=== PATIENT | male | born 1945 | race Caucasian/White ===

== ENCOUNTER → 2016-08-30 | Outpatient (CLI) | payer MEDICARE, OTHER | LOC: LAB 14:20 | PROVIDERS: ATTEND Otolaryngology Otolaryngology/Facial Plastic Surgery | DX: R05 Cough (principal) | CPT/HCPCS: 87070; 87077; 87186; 87205 ==

== ENCOUNTER 2016-09-07 13:25 | Outpatient (RCR) | payer MEDICARE, OTHER ==
--- OUTSIDE RECORDS SUMMARY | 2016-09-07 13:28 | XMS REPORT | Continuity of Care Document ---
Author Author [facility] Organization [facility] Address Unknown Phone Unavailable Allergies Medications Problems Date Dx Coded Attending Type Code Diagnosis Diagnosed By 09/10/2015 JORDAN BROWN MD Ot J69.0 09/10/2015 JORDAN BROWN MD Ot R13.10 10/05/2015 JORDAN BROWN MD Ot J69.0 PNEUMONITIS DUE TO INHALATION OF FOOD AN 10/05/2015 JORDAN BROWN MD Ot R13.10 DYSPHAGIA, UNSPECIFIED Procedures Results Test Result Range Sputum Gram stain - 08/30/16 14:30 GRAM STAIN SPUTUM NUMEROUS GRAM NEGATIVE DIPLOCOCCI NRG Bacterial sputum culture - 08/30/16 14:30 FREE TEXT EXTERNAL WITH SCANT YEAST OBSERVED NRG QUANTITY OF GROWTH Abundant Growth NRG Bacterial sputum culture [id number] NR Bacterial susceptibility panel - 08/30/16 14:30 Gentamicin susceptibility test by minimum inhibitory concentration <= NRG Trimethoprim/sulfamethoxazole susceptibility test by minimum inhibitoryconcentration <= NRG Tobramycin susceptibility test by minimum inhibitory concentration 2 NRG Cefazolin susceptibility test by minimum inhibitory concentration >= NRG Ceftriaxone susceptibility test by minimum inhibitory concentration <= NRG Ciprofloxacin susceptibility test by minimum inhibitory concentration <= NRG Meropenem susceptibility test by minimum inhibitory concentration <= NRG Aztreonam susceptibility test by minimum inhibitory concentration <= NRG Encounters ACCT No. Visit Date/Time Discharge Status Pt. Type Provider Facility Loc./Unit Complaint [id number] 10/05/2015 13:45:00 2015 14:47:00 DIS Outpatient JORDAN BROWN MD [facility] REHAB ASPIRATION PNEUMONIA; DYSPHAGIA [id number] 09/07/2016 14:34:00 PEN Preadmit VIANEY FU DATA PROCESSING CONSULTANT [facility] WOUNDCARE [id number] 08/30/2016 14:20:00 ACT Outpatient BERNADINE NICHOLE MD [facility] LAB COUGH
== END 2016-09-07 16:00 | disposition home or self-care (01) ==
LOC: WOUNDCARE 13:25
PROVIDERS: ATTEND Nurse Practitioner
DX: K94.20 Gastrostomy complication, unspecified (principal)
CPT/HCPCS: 99213

== ENCOUNTER 2016-11-21 16:00 | Outpatient (RCR) | payer MEDICARE, OTHER ==
[2017-01-19] MEDS ORDERED: BACL20TA PO (10:34)
[2017-01-19] MEDS ORDERED: ASPI-999 PO (10:34)
[2017-01-19] MEDS ORDERED: OXYC10TA7 PO (10:34)
[2017-01-19] MEDS ORDERED: TAMS0.4C2 PO (10:34)
== END 2017-02-18 | disposition home or self-care (01) ==
LOC: LAB 16:00
PROVIDERS: ATTEND Internal Medicine Critical Care Medicine
DX: R06.00 Dyspnea, unspecified (principal); J69.0 Pneumonitis due to inhalation of food and vomit; J47.9 Bronchiectasis, uncomplicated; F32.9 Major depressive disorder, single episode, unspecified; M54.2 Cervicalgia
CPT/HCPCS: 87070; 87077; 87101; 87106; 87116; 87186; 87205

== ENCOUNTER → 2016-11-21 | Outpatient (CLI) | payer MEDICARE, OTHER ==
--- NOTE | 2016-11-21 15:42 | Diagnostic Imaging Report ---
INDICATION: Bronchiectasis and dyspnea. CT chest obtained without IV contrast. There is no prior study for comparison. FINDINGS: There are no enlarged mediastinal or hilar nodes. There are no enlarged axillary nodes or chest wall lesions. There is no pleural or pericardial fluid. Visualized portions of the upper abdomen demonstrate a gastrostomy tube in the stomach but no acute finding. Lung parenchymal windows demonstrate diffuse marked emphysematous changes throughout both lungs. There is some mild parenchymal scarring in the left lower lobe and lingula. There is some mild parenchymal scarring in the right middle lobe as well as right lower lobe. There is some mild peribronchial thickening but the visualized bronchi are not appreciably dilated. IMPRESSION: Severe diffuse emphysematous change is noted. There is some mild parenchymal scarring in both lung bases. There does not appear to be significant bronchiectatic change although there is some mild peribronchial thickening. There is no overt mass lesion or pleural fluid. Dictated by: Dictated on workstation # [id number]
== END ==
LOC: RAD 13:42
DX: J69.0 Pneumonitis due to inhalation of food and vomit (principal); J47.9 Bronchiectasis, uncomplicated; R06.00 Dyspnea, unspecified
CPT/HCPCS: 71250

== ENCOUNTER → 2017-01-18 | Outpatient (CLI) | payer MEDICARE, OTHER ==
[~2017-01-18] MED LIST: ASPI-999 PO; BACL20TA PO; OXYC10TA7 PO; TAMS0.4C2 PO
== END ==
LOC: PREOP 11:40
PROVIDERS: ATTEND Surgery
DX: Z01.818 Encounter for other preprocedural examination (principal); K94.23 Gastrostomy malfunction

== ENCOUNTER 2017-01-19 10:05 | Day surgery (SDC) | payer MEDICARE, OTHER ==
[~2017-01-19] VITALS: Ht 167.6 cm; Wt 60.8 kg
[2017-01-19 10:29] VITALS: BP 120/77
[2017-01-19] MEDS ORDERED: OXYC10TA7 PO (10:34)
[2017-01-19] MEDS ORDERED: ASPI-999 PO (10:34)
[2017-01-19] MEDS ORDERED: TAMS0.4C2 PO (10:34)
[2017-01-19] MEDS ORDERED: BACL20TA PO (10:34)
[2017-01-19] MEDS ORDERED: NS IV 500 ML 500 ML IV PRN (11:00)
[2017-01-19 12:35] VITALS: BP 131/76
[2017-01-19 12:40] VITALS: BP 131/76
--- OUTSIDE RECORDS SUMMARY | 2017-01-23 06:48 | XMS REPORT | Continuity of Care Document ---
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, UNSPECIFIED 09/10/2015 JORDAN BROWN MD Ot J69.0 09/10/2015 JORDAN BROWN MD Ot R13.10 10/05/2015 JORDAN BROWN MD Ot J69.0 PNEUMONITIS DUE TO INHALATION OF FOOD AN 10/05/2015 JORDAN BROWN MD Ot R13.10 DYSPHAGIA, UNSPECIFIED 09/07/2016 VIANEY FU APRN Ot 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, UNSPECIFIED 09/08/2016 VIANEY FU APRN Ot 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, UNSPECIFIED 11/20/2016 DIONISIO JOHNSON, BERNADINE Markham Ot R05 COUGH 11/21/2016 JOELLEN DO, RILEY C Ot F32.9 MAJOR DEPRESSIVE DISORDER, SINGLE EPISOD 11/21/2016 JOELLEN DO, RILEY C Ot J47.9 BRONCHIECTASIS, UNCOMPLICATED 11/21/2016 JOELLEN DO, RILEY C Ot J69.0 PNEUMONITIS DUE TO INHALATION OF FOOD AN 11/21/2016 JOELLEN DO, RILEY C Ot M54.2 CERVICALGIA 11/21/2016 JOELLEN DO, RILEY C Ot R06.00 DYSPNEA, UNSPECIFIED 11/21/2016 DIONISIO JOHNSON, BERNADINE Markham Ot R05 COUGH 11/21/2016 JOELLEN DO, RILEY C Ot F32.9 MAJOR DEPRESSIVE DISORDER, SINGLE EPISOD 11/21/2016 JOELLEN DO, RILEY C Ot J47.9 BRONCHIECTASIS, UNCOMPLICATED 11/21/2016 JOELLEN DO, RILEY C Ot J69.0 PNEUMONITIS DUE TO INHALATION OF FOOD AN 11/21/2016 JOELLEN DO, RILEY C Ot M54.2 CERVICALGIA 11/21/2016 JOELLEN DO, RILEY C Ot R06.00 DYSPNEA, UNSPECIFIED 11/22/2016 JOELLEN DO, RILEY C Ot J47.9 BRONCHIECTASIS, UNCOMPLICATED 11/22/2016 JOELLEN DO, RILEY C Ot J69.0 PNEUMONITIS DUE TO INHALATION OF FOOD AN 11/22/2016 JOELLEN DO, RILEY C Ot R06.00 DYSPNEA, UNSPECIFIED 11/22/2016 JOELLEN DO, RILEY C Ot F32.9 MAJOR DEPRESSIVE DISORDER, SINGLE EPISOD 11/22/2016 JOELLEN DO, RILEY C Ot J47.9 BRONCHIECTASIS, UNCOMPLICATED 11/22/2016 JOELLEN DO, RILEY C Ot J69.0 PNEUMONITIS DUE TO INHALATION OF FOOD AN 11/22/2016 JOELLEN DO, RILEY C Ot M54.2 CERVICALGIA 11/22/2016 JOELLEN DO, RILEY C Ot R06.00 DYSPNEA, UNSPECIFIED 11/23/2016 JOELLEN DO, RILEY C Ot J47.9 BRONCHIECTASIS, UNCOMPLICATED 11/23/2016 JOELLEN DO, RILEY C Ot J69.0 PNEUMONITIS DUE TO INHALATION OF FOOD AN 11/23/2016 JOELLEN DO, RILYE C Ot R06.00 DYSPNEA, UNSPECIFIED 11/23/2016 JOELLEN DO, RILEY C Ot J47.9 BRONCHIECTASIS, UNCOMPLICATED 11/23/2016 JOELLEN DO, RILEY C Ot J69.0 PNEUMONITIS DUE TO INHALATION OF FOOD AN 11/23/2016 JOELLEN DO, RILEY C Ot R06.00 DYSPNEA, UNSPECIFIED 11/24/2016 JOELLEN DO, RILEY C Ot J47.9 BRONCHIECTASIS, UNCOMPLICATED 11/24/2016 JOELLEN DO, RILEY C Ot J69.0 PNEUMONITIS DUE TO INHALATION OF FOOD AN 11/24/2016 JOELLEN DO, RILEY C Ot R06.00 DYSPNEA, UNSPECIFIED 12/05/2016 JOELLEN DO, RILEY C Ot J47.9 BRONCHIECTASIS, UNCOMPLICATED 12/05/2016 JOELLEN DO, RILEY C Ot J69.0 PNEUMONITIS DUE TO INHALATION OF FOOD AN 12/05/2016 JOELLEN DO, RILEY C Ot R06.00 DYSPNEA, UNSPECIFIED 12/13/2016 JOELLEN DO, RILEY C Ot F32.9 MAJOR DEPRESSIVE DISORDER, SINGLE EPISOD 12/13/2016 JOELLEN DO, RILEY C Ot J47.9 BRONCHIECTASIS, UNCOMPLICATED 12/13/2016 JOELLEN DO, RILEY C Ot J69.0 PNEUMONITIS DUE TO INHALATION OF FOOD AN 12/13/2016 JOELLEN DO, RILEY C Ot M54.2 CERVICALGIA 12/13/2016 JOELLEN DO, RILEY C Ot R06.00 DYSPNEA, UNSPECIFIED 12/22/2016 JOELLEN DO, RILEY C Ot J47.9 BRONCHIECTASIS, UNCOMPLICATED 12/22/2016 JOELLEN DO, RILEY C Ot J69.0 PNEUMONITIS DUE TO INHALATION OF FOOD AN 12/22/2016 JOELLEN DO, RILEY C Ot R06.00 DYSPNEA, UNSPECIFIED 01/04/2017 JOELLNE DO, RILEY C Ot F32.9 MAJOR DEPRESSIVE DISORDER, SINGLE EPISOD 01/04/2017 JOELLEN DO, RILEY C Ot J47.9 BRONCHIECTASIS, UNCOMPLICATED 01/04/2017 JOELLEN DO, RILEY C Ot J69.0 PNEUMONITIS DUE TO INHALATION OF FOOD AN 01/04/2017 JOELLEN DO, RILEY C Ot M54.2 CERVICALGIA 01/04/2017 JOELLEN DO, RILEY C Ot R06.00 DYSPNEA, UNSPECIFIED 01/19/2017 DIONISIO JOHNSON, BERNADINE Markham Ot R05 COUGH 01/19/2017 JOELLEN DO, RILEY C Ot J47.9 BRONCHIECTASIS, UNCOMPLICATED 01/19/2017 JOELLEN DO, RILEY C Ot J69.0 PNEUMONITIS DUE TO INHALATION OF FOOD AN 01/19/2017 JOELLEN DO, RILEY C Ot R06.00 DYSPNEA, UNSPECIFIED 01/19/2017 JOELLEN DO, RILEY C Ot F32.9 MAJOR DEPRESSIVE DISORDER, SINGLE EPISOD 01/19/2017 JOELLEN DO, RILEY C Ot J47.9 BRONCHIECTASIS, UNCOMPLICATED 01/19/2017 JOELLEN DO, RILEY C Ot J69.0 PNEUMONITIS DUE TO INHALATION OF FOOD AN 01/19/2017 JOELLEN DO, RILEY C Ot M54.2 CERVICALGIA 01/19/2017 RILEY CUENCA DO Ot R06.00 DYSPNEA, UNSPECIFIED Procedures Results Test Result Range Sputum Gram stain - 08/30/16 14:30 GRAM STAIN SPUTUM NUMEROUS GRAM NEGATIVE DIPLOCOCCI NRG Bacterial sputum culture - 08/30/16 14:30 FREE TEXT EXTERNAL WITH SCANT YEAST OBSERVED NRG QUANTITY OF GROWTH Abundant Growth NRG Bacterial sputum culture [id number] NR Bacterial susceptibility panel - 08/30/16 14:30 [...] test by minimum inhibitory concentration <= NRG Sputum Gram stain - 11/20/16 10:45 GRAM STAIN SPUTUM AND MIXED BACTERIAL DANNIELLE NRG Bacterial sputum culture - 11/20/16 10:45 Bacterial sputum culture NORMAL NRG Mycobacterium species detection by organism specific culture - 11/20/16 10:45 Mycobacterium species detection by organism specific culture FOOTNOTE NRG Fungus culture - 11/20/16 10:45 QUANTITY OF GROWTH Isolated NRG Fungus culture [id number] NRG IDENTIFICATION TO FOLLOW ID BY [facility] NRG Sputum Gram stain - 11/21/16 11:00 Sputum Gram stain Mixed bacterial dannielle NRG Bacterial sputum culture - 11/21/16 11:00 FREE TEXT EXTERNAL (MOLD FORM) NRG QUANTITY OF GROWTH Scant Growth NRG FREE TEXT ENTRY 2 PLUS NORMAL DANNIELLE NRG Bacterial sputum culture [id number] NRG Mycobacterium species detection by organism specific culture - 11/21/16 11:00 Mycobacterium species detection by organism specific culture FOOTNOTE NRG Fungus culture - 11/21/16 11:00 QUANTITY OF GROWTH Isolated NRG FTX;REPORTABLE SEE COMMENT NRG FUNGUS REPORT FUNGUS GROWTH OBSERVED NRG Fungus culture [id number] NRG Sputum Gram stain - 11/22/16 11:00 Sputum Gram stain Abundant mixed bacterial dannielle NRG Bacterial sputum culture - 11/22/16 11:00 FREE TEXT EXTERNAL SEE FUNGUS CULTURE NRG QUANTITY OF GROWTH Moderate Growth NRG Bacterial sputum culture [id number] NRG Mycobacterium species detection by organism specific culture - 11/22/16 11:00 Mycobacterium species detection by organism specific culture FOOTNOTE [facility] Bacterial susceptibility panel - 11/22/16 11:00 Gentamicin susceptibility test by minimum inhibitory concentration [...] test by minimum inhibitory concentration <= NRG Bacterial susceptibility panel - 11/22/16 11:00 Gentamicin susceptibility test by minimum inhibitory concentration <= NRG Trimethoprim/sulfamethoxazole susceptibility test by minimum inhibitoryconcentration <= NRG Ampicillin susceptibility test by minimum inhibitory concentration >= NRG Tobramycin susceptibility test by minimum inhibitory concentration <= NRG Cefazolin susceptibility test by minimum inhibitory concentration <= NRG Ceftriaxone susceptibility test by minimum inhibitory concentration <= NRG Ampicillin/sulbactam susceptibility test by minimum inhibitory concentration 4 NRG Piperacillin/tazobactam susceptibility test by minimum inhibitory concentration <= NRG Ciprofloxacin susceptibility test by minimum inhibitory concentration <= NRG Meropenem susceptibility test by minimum inhibitory concentration <= NRG Aztreonam susceptibility test by minimum inhibitory concentration <= NRG Extended spectrum beta lactamase (ESBL) producing bacteria susceptibility test by minimum inhibitory concentration - [facility] Fungus culture - 11/22/16 11:00 QUANTITY OF GROWTH . [facility] FUNGUS REPORT FUNGUS GROWTH OBSERVED NR Fungus culture SEE COMMEN NR Encounters ACCT No. Visit Date/Time Discharge Status Pt. Type Provider Facility Loc./Unit Complaint [id number] 01/19/2017 10:05:00 2016 12:40:00 DIS Outpatient SANTOS ROSAS MD [facility] SDC MALFUNCTIONING PEG TUBE [id number] 09/07/2016 13:25:00 2016 16:00:00 DIS Outpatient VIANEY FU APRN [facility] WOUNDCARE [id number] 10/05/2015 13:45:00 2015 14:47:00 DIS Outpatient JORDAN BROWN MD [facility] REHAB ASPIRATION PNEUMONIA; DYSPHAGIA [id number] 01/18/2017 11:40:00 ACT Outpatient RALPH JOHNSON, SANTOS [facility] PREOP CHANGE PEG TUBE [id number] 11/21/2016 16:00:00 ACT Outpatient RILEY CUENCA DO [facility] LAB R06.00,M54.2 [id number] 11/21/2016 13:42:00 ACT Outpatient RILEY CUENCA DO [facility] RAD BRONCHIECTASIS J47.9 [id number] 08/30/2016 14:20:00 ACT Outpatient DIONISIO JOHNSON, BERNADINE Markham [facility] LAB COUGH
--- NOTE | 2017-01-24 17:15 | Progress Note-Post Operative ---
Post-Operative Progess Note Surgeon (s)/Sole Stapler Welt (s) Surgeon SANTOS ROSAS MD Sole Stapler Welt: none Pre-Operative Diagnosis dysphagia, malnutrition Post-Operative Diagnosis same Procedure & Operative Findings Date of Procedure 01/24/17 Procedure Performed/Findings JESSICA-CHO PEG tube change to 24 azeri Anesthesia Type none Estimated Blood Loss Estimated blood loss (mL): minimal Specimens/Packing Specimens Removed none SANTOS ROSAS MD Jan 24, 2017 17:15
--- NOTE | 2017-01-26 11:56 | PROCEDURE REPORT ---
PROCEDURE PHYSICIAN: SANTOS GRIGGS DATE OF PROCEDURE: 01/19/2017 ATTENDING PRIMARY CARE PHYSICIAN: Dr. Pretty PREPROCECURE DIAGNOSES: 1. Dysphagia. 2. Malnutrition. 3. Leaking gastrostomy tube. POSTPROCEDURE DIAGNOSES: 1. Dysphagia. 2. Malnutrition. 3. Leaking gastrostomy tube. PROCEDURE: 1. Dysphagia. 2. Malnutrition. 3. Leaking gastrostomy tube. PROCEDURE: Replacement of a 22-Danish JESSICA-CHO gastrostomy tube from 22-Danish to 24-Danish. SURGEON: Dr. Griggs. ANESTHESIA: None. ESTIMATED BLOOD LOSS: Minimal. DISPOSITION: The patient tolerated the procedure well. BRIEF HISTORY: Mr. Wilner Louis is a 71-year-old male who has had irritation and drainage around his gastrostomy tube site. In April 2015, he underwent a cervical diskectomy and developed dysphagia and was unable to eat and drink or take any medications. He had a percutaneous gastrostomy tube place for nutrition. Since that time, he reports that he is able to tolerate some soft foods; however, he does continue to get dehydrated and does have to proceed with alimentation of water, as well as nutrition through the gastrostomy tube. His tube was in for approximately 14 months and this was replaced in May 2016. For the past several months, he has had drainage, as well as irritation and excoriation around the tube. He did try a trial of antibiotics, which he states did not help. He would like to have gastrostomy tube changed to a 24-Danish larger balloon catheter in hopes of allowing less gastric drainage around the peristomal site of the skin level. The previous 22-Danish JESSICA-CHO gastrostomy tube balloon was desufflated and was only approximately 4 cc within the balloon. The gastrostomy tube was removed intact. A 24-Danish JESSICA-CHO gastrostomy tube was placed without any resistance and the balloon insufflated to 10 mm with water. The rubber bolster on the surface side was then firmly abutted against the skin after drain sponge was placed. The patient tolerated the procedure well. The gastrostomy tube may be accessed and used at any time. Job ID: [id number] Dictated Date: 01/24/2017 17:20:53 Animal Attendants And Trainers Date: 01/26/2017 11:45:12 / venu
== END 2017-01-19 12:40 | disposition home or self-care (01) ==
LOC: SDC 10:05
PROVIDERS: ATTEND Surgery
DX: K94.29 Other complications of gastrostomy (principal); E46 Unspecified protein-calorie malnutrition; R13.10 Dysphagia, unspecified; C90.00 Multiple myeloma not having achieved remission; D64.9 Anemia, unspecified; N40.0 Benign prostatic hyperplasia without lower urinary tract symptoms; M19.90 Unspecified osteoarthritis, unspecified site; Z79.899 Other long term (current) drug therapy

== ENCOUNTER → 2017-03-30 | Outpatient (CLI) | payer MEDICARE, OTHER ==
[~2017-03-30] VITALS: Ht 167.6 cm; Wt 60.8 kg
--- NOTE | 2017-03-30 15:02 | Progress Note-Post Operative ---
Post-Operative Progess Note Surgeon (s)/Preschool Assistant Principal (s) Surgeon SANTOS ROSAS MD Preschool Assistant Principal: NONE Pre-Operative Diagnosis dysphagia, malnutrition Post-Operative Diagnosis same Procedure & Operative Findings Date of Procedure 03/30/17 Procedure Performed/Findings replacement PEG Anesthesia Type none Estimated Blood Loss Estimated blood loss (mL): minimal Specimens/Packing Specimens Removed none SANTOS ROSAS MD Mar 30, 2017 3:02 pm
--- NOTE | 2017-03-30 15:05 | Discharge Inst-Surgical ---
D/C Lap Instructions-RALPH Follow Up PRN Activity as tolerated High Fiber Diet 25g or more per day Avoid Alcohol, Caffeine, Spicy [place] and Acid foods. Drink 64 fluid oz or more of fluids per day. Symptoms to Report: Fever over 101 degree F, Nausea/Vomiting If any problems/questions: Contact your physician or go to Emergency Room SANTOS ROSAS MD Mar 30, 2017 3:05 pm
[2017-03-30 16:25] VITALS: BP 141/71
== END ==
LOC: SDC 14:41
PROVIDERS: ATTEND Surgery
DX: K94.23 Gastrostomy malfunction (principal); R13.10 Dysphagia, unspecified; E46 Unspecified protein-calorie malnutrition

== ENCOUNTER → 2017-08-08 | Outpatient (CLI) | payer MEDICARE, OTHER | LOC: LAB 16:13 | PROVIDERS: ATTEND Internal Medicine | DX: R19.7 Diarrhea, unspecified (principal) ==

== ENCOUNTER 2017-12-12 05:48 | Outpatient (CLI) | payer MEDICARE, OTHER ==
[~2017-12-12] VITALS: Ht 167.6 cm; Wt 59.9 kg
[2017-12-12] MEDS ORDERED: OXYC-529 PO (13:52)
[2017-12-12] MEDS ORDERED: TIOT18CA2 IH (13:52)
[2017-12-12] MEDS ORDERED: GABA-486 PO (13:52)
[2017-12-12] MEDS ORDERED: FINA5TAB6 PO (13:52)
[2017-12-12] MEDS ORDERED: BUDE10.2 IH (13:52)
== END 2017-12-12 13:57 ==
LOC: PREOP 05:48
PROVIDERS: ATTEND Specialist
DX: Z01.818 Encounter for other preprocedural examination (principal); H25.11 Age-related nuclear cataract, right eye

== ENCOUNTER 2017-12-14 09:27 | Day surgery (SDC) | payer MEDICARE, OTHER ==
[~2017-12-14] VITALS: Ht 167.6 cm; Wt 59.9 kg
[~2017-12-14 09:27] MED LIST changes: +BUDE10.2 IH; +FINA5TAB6 PO; +GABA-486 PO; +OXYC-529 PO; +TIOT18CA2 IH
[2017-12-14 09:35] VITALS: BP 138/86
[2017-12-14] MEDS ORDERED: POVIDONE (BETADINE) OPHTH SOLN 5% 30 ML OP NR (09:45)
[2017-12-14] MEDS ORDERED: EPINEPHrine INJECTION 1 MG/ML AMP INJ NR (09:45)
[2017-12-14] MEDS ORDERED: VANCOMYCIN/BSS (COMPOUNDED) 10 MG/ML SYR OP NR (09:45)
[2017-12-14] MEDS ORDERED: TIMOLOL MALEATE 0.5% 5 ML (TIMOPTIC) BTL OU PRN (09:45)
[2017-12-14] MEDS ORDERED: LIDOCAINE PF 1% 2 ML AMP IR PRN (09:45)
[2017-12-14] MEDS: TETRACAINE 0.5% OPHTH SOLN 4 ML BTL (SINGLE DOSE ONLY) OU PRN ×4 (09:50→10:07)
[2017-12-14] MEDS: PHENYLEPHRINE 10% OPHTH (NEO-SYN) 5 ML BTL OU SCH ×3 (09:56→10:07)
[2017-12-14] MEDS: CYCLOPENTOLATE 1% (CYCLOGYL) 2 ML DROPS OP SCH ×3 (09:56→10:07)
[2017-12-14] MEDS ORDERED: MIDAZOLAM 2 MG/2 ML (VERSED) VIAL ONE (10:14)
--- NOTE | 2017-12-14 11:12 | Ophthalmologist Pre-Op Note ---
Pre-Operative Progress Note H&P Reviewed The H&P was reviewed, patient examined and no changes noted. Date H&P Reviewed: Dec 14, 2017 Time H&P Reviewed: 10:31 Pre-Op Dx Cataract, Right Eye MAYELIN MCKEON MD Dec 14, 2017 11:11
--- NOTE | 2017-12-14 11:12 | Ophthalmology Operative Report ---
Cataract removal/placement IOL PREOPERATIVE DIAGNOSIS: Cataract Right Eye POSTOPERATIVE DIAGNOSIS: Cataract Right Eye PROCEDURE: Cataract removal and placement of posterior chamber implant, right eye SURGEON: Karl Mckeon ANESTHESIA: Topical with sedation COMPLICATIONS: None ESTIMATED BLOOD LOSS: Minimal DESCRIPTION OF PROCEDURE: After proper informed consent was obtained, the patient, a 72 male, was taken to the Operating Room and the right eye was anesthetized with tetracaine. They right eye was then prepped and draped in the usual manner. A wire lid speculum was placed. A paracentesis was made at the left hand position. Preservative free lidocaine was injected into the anterior chamber followed by viscoelastic. A clear corneal incision was made in the temporal position. A capsulorrhexis was preformed and the central nuclear and cortical material were removed. The posterior capsule was polished and Alcon21.0 SN6CWS IOL was placed into the capsular bag. The residual viscoelastic was aspirated and balanced saline solution was injected into the anterior chamber. 0.1ml of Vancomycin (10mg/0.1ml ) was injected into the anterior chamber. The wound was checked and found to be water tight. The patient tolerated the procedure well without complications. KARL MCKEON MD Dec 14, 2017 11:12
[2017-12-14 11:15] VITALS: BP 142/78
[2017-12-14 11:50] VITALS: BP 142/78
--- NOTE | 2017-12-14 13:55 | Anesthesia-General Post-Op ---
MAC Patient Condition Mental Status/LOC: Same as Preop Cardiovascular: Satisfactory Nausea/Vomiting: Absent Respiratory: Satisfactory Pain: Controlled Complications: Absent Post Op Complications Complications None Follow Up Care/Instructions Patient Instructions None needed. Anesthesiology Discharge Order Discharge Order Patient is doing well, no complaints, stable vital signs, no apparent adverse anesthesia problems. No complications reported per nursing. JANIE MULLER CRNA Dec 14, 2017 13:55
== END 2017-12-14 11:50 | disposition home or self-care (01) ==
LOC: SDC 09:27
PROVIDERS: ATTEND Specialist
DX: H25.11 Age-related nuclear cataract, right eye (principal); J44.9 Chronic obstructive pulmonary disease, unspecified; G62.9 Polyneuropathy, unspecified; K21.9 Gastro-esophageal reflux disease without esophagitis; Z87.891 Personal history of nicotine dependence; Z79.899 Other long term (current) drug therapy

== ENCOUNTER 2018-01-14 14:57 | Outpatient (RCR) | payer MEDICARE, OTHER | END 2018-02-12 | disposition home or self-care (01) | LOC: LAB 14:57 → EDSTATUS 01-30 13:49 | PROVIDERS: ATTEND Internal Medicine Critical Care Medicine | DX: J44.9 Chronic obstructive pulmonary disease, unspecified (principal); J69.0 Pneumonitis due to inhalation of food and vomit; R53.83 Other fatigue; D47.2 Monoclonal gammopathy | CPT/HCPCS: 36415; 80198; 87070; 87077; 87116; 87186; 87205 ==

== ENCOUNTER 2018-06-30 16:18 | Emergency (ER) | payer MEDICARE, OTHER ==
[~2018-06-30] VITALS: Ht 165.1 cm; Wt 59.9 kg
--- OUTSIDE RECORDS SUMMARY | 2018-06-30 16:24 | XMS REPORT | Continuity of Care Document ---
Author Author [facility] Organization [facility] Address Unknown Phone Unavailable Allergies Active Description Code Type Severity Reaction Onset Reported/Identified Relationship to Patient Clinical Status Yes No Known Allergies [id number] Drug Allergy Unknown N/A 01/19/2017 Medications There is no data. 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, UNSPECIFIED 11/20/2016 DIONISIO JOHNSON, BERNADINE P Ot R05 COUGH 11/21/2016 JOELLEN DOSANTIAGOIP C Ot F32.9 MAJOR DEPRESSIVE DISORDER, SINGLE EPISOD 11/21/2016 JOELLEN DO RILEY C Ot J47.9 BRONCHIECTASIS, UNCOMPLICATED 11/21/2016 JOELLEN DO, RILEY C Ot J69.0 PNEUMONITIS DUE TO INHALATION OF FOOD AN 11/21/2016 JOELLEN DO RILEY C Ot M54.2 CERVICALGIA 11/21/2016 JOELLEN DOSANTIAGOIP C Ot R06.00 DYSPNEA, UNSPECIFIED 11/21/2016 DIONISIO JOHNSON, BERNADINE Markham Ot R05 COUGH 11/21/2016 JOELLEN DO RILEY C Ot F32.9 MAJOR DEPRESSIVE DISORDER, SINGLE EPISOD 11/21/2016 JOELLEN DO RILEY C Ot J47.9 BRONCHIECTASIS, UNCOMPLICATED 11/21/2016 [...] RILEY C Ot R06.00 DYSPNEA, UNSPECIFIED 01/04/2017 JOELLEN DO, RILEY C Ot F32.9 MAJOR [...] DO, RILEY C Ot M54.2 CERVICALGIA 01/19/2017 JOELLEN DO, RILEY C Ot R06.00 DYSPNEA, UNSPECIFIED 01/19/2017 SANTOS ROSAS MD, Ot C90.00 MULTIPLE MYELOMA NOT HAVING ACHIEVED REM 01/19/2017 SANTOS ROSAS MD, Ot D64.9 ANEMIA, UNSPECIFIED 01/19/2017 SANTOS ROSAS MD Ot E46 UNSPECIFIED PROTEIN-CALORIE MALNUTRITION 01/19/2017 SANTOS ROSAS MD Ot K94.29 OTHER COMPLICATIONS OF GASTROSTOMY 01/19/2017 SANTOS ROSAS MD, Ot M19.90 UNSPECIFIED OSTEOARTHRITIS, UNSPECIFIED 01/19/2017 SANTOS ROSAS MD, Ot N40.0 BENIGN PROSTATIC HYPERPLASIA WITHOUT LOW 01/19/2017 SANTOS ROSAS MD, Ot R13.10 DYSPHAGIA, UNSPECIFIED 01/19/2017 SANTOS ROSAS MD, Ot Z79.899 OTHER ALF (CURRENT) DRUG THERAPY 01/22/2017 SANTOS ROSAS MD, Ot K94.23 GASTROSTOMY MALFUNCTION 01/22/2017 SANTOS ROSAS MD Ot Z01.818 ENCOUNTER FOR OTHER PREPROCEDURAL EXAMIN 02/18/2017 JOELLEN DO, RILEY C Ot F32.9 MAJOR DEPRESSIVE DISORDER, SINGLE EPISOD 02/18/2017 JOELLEN DO, RILEY C Ot J47.9 BRONCHIECTASIS, UNCOMPLICATED 02/18/2017 JOELLEN DO, RILEY C Ot J69.0 PNEUMONITIS DUE TO INHALATION OF FOOD AN 02/18/2017 JOELLEN DO, RILEY C Ot M54.2 CERVICALGIA 02/18/2017 JOELLEN DO, RILEY C Ot R06.00 DYSPNEA, UNSPECIFIED 02/19/2017 JOELLEN DO, RILEY C Ot F32.9 MAJOR DEPRESSIVE DISORDER, SINGLE EPISOD 02/19/2017 JOELLEN DO, RILEY C Ot J47.9 BRONCHIECTASIS, UNCOMPLICATED 02/19/2017 JOELLEN DO, RILEY C Ot J69.0 PNEUMONITIS DUE TO INHALATION OF FOOD AN 02/19/2017 JOELLEN DO, RILEY C Ot M54.2 CERVICALGIA 02/19/2017 JOELLEN DO, RILEY C Ot R06.00 DYSPNEA, UNSPECIFIED 08/08/2017 DIONISIO JOHNSON, BERNADINE Markham Ot R05 COUGH 08/08/2017 JOELLEN DO, RILEY C Ot J47.9 BRONCHIECTASIS, UNCOMPLICATED 08/08/2017 JOELLEN DO, RILEY C Ot J69.0 PNEUMONITIS DUE TO INHALATION OF FOOD AN 08/08/2017 JOELLEN DO, RILEY C Ot R06.00 DYSPNEA, UNSPECIFIED 08/08/2017 RALPH JOHNSON, SANTOS Ot K94.23 GASTROSTOMY MALFUNCTION 08/08/2017 SANTOS ROSAS MD Ot Z01.818 ENCOUNTER FOR OTHER PREPROCEDURAL EXAMIN 08/08/2017 JOELLEN DO, RILEY C Ot F32.9 MAJOR DEPRESSIVE DISORDER, SINGLE EPISOD 08/08/2017 JOELLEN DO, RILEY C Ot J47.9 BRONCHIECTASIS, UNCOMPLICATED 08/08/2017 JOELLEN DO, RILEY C Ot J69.0 PNEUMONITIS DUE TO INHALATION OF FOOD AN 08/08/2017 JOELLEN DO, RILEY C Ot M54.2 CERVICALGIA 08/08/2017 JOELLEN DO, RILEY C Ot R06.00 DYSPNEA, UNSPECIFIED 08/08/2017 RALPH JOHNSON, SANTOS Ot E46 UNSPECIFIED PROTEIN-CALORIE MALNUTRITION 08/08/2017 RALPH JOHNSON, SANTOS Ot K94.23 GASTROSTOMY MALFUNCTION 08/08/2017 RALPH JOHNSON, SANTOS Ot R13.10 DYSPHAGIA, UNSPECIFIED 08/09/2017 STEPHANIE JOHNSON, JORDAN F Ot R19.7 DIARRHEA, UNSPECIFIED 12/12/2017 DIONISIO JOHNSON, BERNADINE Markham Ot R05 COUGH 12/12/2017 JOELLEN DO, RILEY C Ot J47.9 BRONCHIECTASIS, UNCOMPLICATED 12/12/2017 JOELLEN DO, RILEY C Ot J69.0 PNEUMONITIS DUE TO INHALATION OF FOOD AN 12/12/2017 JOELLEN DO, RILEY C Ot R06.00 DYSPNEA, UNSPECIFIED 12/12/2017 RALPH JOHNSON, SANTOS Ot K94.23 GASTROSTOMY MALFUNCTION 12/12/2017 SANTOS ROSAS MD Ot Z01.818 ENCOUNTER FOR OTHER PREPROCEDURAL EXAMIN 12/12/2017 JOELLEN DO, RILEY C Ot F32.9 MAJOR DEPRESSIVE DISORDER, SINGLE EPISOD 12/12/2017 JOELLEN DO, RILEY C Ot J47.9 BRONCHIECTASIS, UNCOMPLICATED 12/12/2017 JOELLEN DO, RILEY C Ot J69.0 PNEUMONITIS DUE TO INHALATION OF FOOD AN 12/12/2017 JOELLEN DO, RILEY C Ot M54.2 CERVICALGIA 12/12/2017 JOELLEN DO, RILEY C Ot R06.00 DYSPNEA, UNSPECIFIED 12/12/2017 RALPH JOHNSON, SANTOS Ot E46 UNSPECIFIED PROTEIN-CALORIE MALNUTRITION 12/12/2017 RALPH JOHNSON, SANTOS Ot K94.23 GASTROSTOMY MALFUNCTION 12/12/2017 SANTOS ROSAS MD Ot R13.10 DYSPHAGIA, UNSPECIFIED 12/12/2017 STEPHANIE JOHNSON, JORDAN Quinones Ot R19.7 DIARRHEA, UNSPECIFIED 12/12/2017 MIKE JOHNSON, MAYELIN White Ot H25.11 AGE-RELATED NUCLEAR CATARACT, RIGHT EYE 12/12/2017 MAYELIN MCKEON MD Ot Z01.818 ENCOUNTER FOR OTHER PREPROCEDURAL EXAMIN 12/12/2017 MAYELIN MCKEON MD Ot H25.11 AGE-RELATED NUCLEAR CATARACT, RIGHT EYE 12/12/2017 MAYELIN MCKEON MD Ot Z01.818 ENCOUNTER FOR OTHER PREPROCEDURAL EXAMIN 12/14/2017 MAYELIN MCKEON MD Ot G62.9 POLYNEUROPATHY, UNSPECIFIED 12/14/2017 MAYELIN MCKEON MD Ot H25.11 AGE-RELATED NUCLEAR CATARACT, RIGHT EYE 12/14/2017 MAYELIN MCKEON MD Ot J44.9 CHRONIC OBSTRUCTIVE PULMONARY DISEASE, U 12/14/2017 MAYELIN MCKEON MD Ot K21.9 GASTRO-ESOPHAGEAL REFLUX DISEASE WITHOUT 12/14/2017 MAYELIN MCKEON MD Ot 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 12/14/2017 MAYELIN MCKEON MD Ot Z87.891 PERSONAL HISTORY OF NICOTINE DEPENDENCE 01/14/2018 DIONISIO JOHNSON, BERNADINE Markham Ot R05 COUGH 01/14/2018 JOELLEN DO, RILEY C Ot J47.9 BRONCHIECTASIS, UNCOMPLICATED 01/14/2018 JOELLEN DO, RILEY C Ot J69.0 PNEUMONITIS DUE TO INHALATION OF FOOD AN 01/14/2018 JOELLEN DO, RILEY C Ot R06.00 DYSPNEA, UNSPECIFIED 01/14/2018 RALPH JOHNSON, SANTOS Ot K94.23 GASTROSTOMY MALFUNCTION 01/14/2018 RALPH JOHNSON, SANTOS Ot Z01.818 ENCOUNTER FOR OTHER PREPROCEDURAL EXAMIN 01/14/2018 JOELLEN DO, RILEY C Ot F32.9 MAJOR DEPRESSIVE DISORDER, SINGLE EPISOD 01/14/2018 JOELLEN DO, RILEY C Ot J47.9 BRONCHIECTASIS, UNCOMPLICATED 01/14/2018 JOELLEN DO, RILEY C Ot J69.0 PNEUMONITIS DUE TO INHALATION OF FOOD AN 01/14/2018 JOELLEN DO, RILEY C Ot M54.2 CERVICALGIA 01/14/2018 JOELLEN DO, RILEY C Ot R06.00 DYSPNEA, UNSPECIFIED 01/14/2018 RAPLH JOHNSON, SANTOS Ot E46 UNSPECIFIED PROTEIN-CALORIE MALNUTRITION 01/14/2018 RALPH JOHNSON, SANTOS Ot K94.23 GASTROSTOMY MALFUNCTION 01/14/2018 RALPH JOHNSON, SANTOS Ot R13.10 DYSPHAGIA, UNSPECIFIED 01/14/2018 STEPHANIE JOHNSON, JORDAN Quinones Ot R19.7 DIARRHEA, UNSPECIFIED 01/17/2018 JOELLEN DO, RILEY C Ot 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 GAMMOPATHY 01/17/2018 JOELLEN DO, RILEY C Ot J44.9 CHRONIC OBSTRUCTIVE PULMONARY DISEASE, U 01/17/2018 JOELLEN DO, RILEY C Ot J69.0 PNEUMONITIS DUE TO INHALATION OF FOOD AN 01/17/2018 JOELLEN DO, RILEY C Ot R53.83 OTHER FATIGUE 01/30/2018 JOELLEN DO, RILEY C Ot 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 GAMMOPATHY 01/30/2018 JOELLEN DO, RILEY C Ot J44.9 CHRONIC OBSTRUCTIVE PULMONARY DISEASE, U 01/30/2018 JOELLEN DO, RILEY C Ot J69.0 PNEUMONITIS DUE TO INHALATION OF FOOD AN 01/30/2018 JOELLEN DO, RILEY C Ot R53.83 OTHER FATIGUE 01/31/2018 JOELLEN DO, RILEY C Ot 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 GAMMOPATHY 01/31/2018 JOELLEN DO, RILEY C Ot J44.9 CHRONIC OBSTRUCTIVE PULMONARY DISEASE, U 01/31/2018 JOELLEN DO, RILEY C Ot J69.0 PNEUMONITIS DUE TO INHALATION OF FOOD AN 01/31/2018 JOELLEN DO, RILEY C Ot R53.83 OTHER FATIGUE 02/05/2018 JOELLEN DO, RILEY C Ot 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 GAMMOPATHY 02/05/2018 JOELLEN DO, RILEY C Ot J44.9 CHRONIC OBSTRUCTIVE PULMONARY DISEASE, U 02/05/2018 JOELLEN DO, RILEY C Ot J69.0 PNEUMONITIS DUE TO INHALATION OF FOOD AN 02/05/2018 JOELLEN DO, RILEY C Ot R53.83 OTHER FATIGUE 02/12/2018 JOELLEN DO, RILEY C Ot 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 GAMMOPATHY 02/12/2018 JOELLEN DO, RILEY C Ot J44.9 CHRONIC OBSTRUCTIVE PULMONARY DISEASE, U 02/12/2018 JOELLEN DO, RILEY C Ot J69.0 PNEUMONITIS DUE TO INHALATION OF FOOD AN 02/12/2018 JOELLEN DO, RILEY C Ot R53.83 OTHER FATIGUE 04/15/2018 JOELLEN DO, RILEY C Ot 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 GAMMOPATHY 04/15/2018 JOELLEN DO, RILEY C Ot J44.9 CHRONIC OBSTRUCTIVE PULMONARY DISEASE, U 04/15/2018 JOELLEN DO, RILEY C Ot J69.0 PNEUMONITIS DUE TO INHALATION OF FOOD AN 04/15/2018 JOELLEN DO, RILEY C Ot R53.83 OTHER FATIGUE Procedures There is no data. Results Test Result Range Sputum Gram stain - 08/30/16 14:30 GRAM STAIN SPUTUM NUMEROUS GRAM NEGATIVE DIPLOCOCCI NRG Bacterial sputum culture - 08/30/16 14:30 FREE TEXT EXTERNAL WITH SCANT YEAST OBSERVED NRG QUANTITY OF GROWTH Abundant Growth NRG Bacterial sputum culture [id number] NR Bacterial susceptibility panel - 08/30/16 14:30 Gentamicin susceptibility test by minimum inhibitory concentration < = NRG Trimethoprim/sulfamethoxazole susceptibility test by minimum inhibitoryconcentration <= NRG Tobramycin susceptibility test by minimum inhibitory concentration 2 NRG Cefazolin susceptibility test by minimum inhibitory concentration > = NRG Ceftriaxone susceptibility test by minimum inhibitory concentration <= NRG Ciprofloxacin susceptibility test by minimum inhibitory concentration <= NRG Meropenem susceptibility test by minimum inhibitory concentration < = NRG Aztreonam susceptibility test by minimum inhibitory concentration < = NRG Sputum Gram stain - 11/20/16 10:45 GRAM STAIN SPUTUM AND MIXED BACTERIAL DANNIELLE NRG Bacterial sputum culture - 11/20/16 10:45 Bacterial sputum culture NORMAL NRG Mycobacterium species detection by organism specific culture - 11/20/16 10:45 Mycobacterium species detection by organism specific culture FOOTNOTE NRG Fungus culture - 11/20/16 10:45 QUANTITY OF GROWTH Isolated NRG Fungus culture [id number] NRG IDENTIFICATION TO FOLLOW ID BY [facility] NRG Sputum Gram stain - 11/21/16 11:00 Sputum Gram stain Mixed bacterial dannielle NRG Bacterial sputum culture - 11/21/16 11:00 FREE TEXT EXTERNAL (MOLD FORM) NRG QUANTITY OF GROWTH Scant Growth NRG FREE TEXT ENTRY 2 PLUS NORMAL DANNIELLE NRG Bacterial sputum culture [id number] NRG Mycobacterium species detection by organism specific culture - 11/21/16 11:00 Mycobacterium species detection by organism specific culture FOOTNOTE NRG Fungus culture - 11/21/16 11:00 QUANTITY OF GROWTH Isolated NRG FTX;REPORTABLE SEE COMMENT NRG FUNGUS REPORT FUNGUS GROWTH OBSERVED NRG Fungus culture [id number] NRG Sputum Gram stain - 11/22/16 11:00 Sputum Gram stain Abundant mixed bacterial dannielle NRG Bacterial sputum culture - 11/22/16 11:00 FREE TEXT EXTERNAL SEE FUNGUS CULTURE NRG QUANTITY OF GROWTH Moderate Growth NRG Bacterial sputum culture [id number] NRG Mycobacterium species detection by organism specific culture - 11/22/16 11:00 Mycobacterium species detection by organism specific culture FOOTNOTE NR Bacterial susceptibility panel - 11/22/16 11:00 Gentamicin susceptibility test by minimum inhibitory concentration < = NRG Trimethoprim/sulfamethoxazole susceptibility test by minimum inhibitoryconcentration <= NRG Tobramycin susceptibility test by minimum inhibitory concentration 2 NRG Cefazolin susceptibility test by minimum inhibitory concentration > = NRG Ceftriaxone susceptibility test by minimum inhibitory concentration <= NRG Ciprofloxacin susceptibility test by minimum inhibitory concentration <= NRG Meropenem susceptibility test by minimum inhibitory concentration < = NRG Aztreonam susceptibility test by minimum inhibitory concentration < = NRG Bacterial susceptibility panel - 11/22/16 11:00 Gentamicin susceptibility test by minimum inhibitory concentration < = NRG Trimethoprim/sulfamethoxazole susceptibility test by minimum inhibitoryconcentration <= NRG Ampicillin susceptibility test by minimum inhibitory concentration > = NRG Tobramycin susceptibility test by minimum inhibitory concentration < = NRG Cefazolin susceptibility test by minimum inhibitory concentration < = NRG Ceftriaxone susceptibility test by minimum inhibitory concentration <= NRG Ampicillin/sulbactam susceptibility test by minimum inhibitory concentration 4 NRG Piperacillin/tazobactam susceptibility test by minimum inhibitory concentration <= NRG Ciprofloxacin susceptibility test by minimum inhibitory concentration <= NRG Meropenem susceptibility test by minimum inhibitory concentration < = NRG Aztreonam susceptibility test by minimum inhibitory concentration < = NRG Extended spectrum beta lactamase (ESBL) producing bacteria susceptibility test by minimum inhibitory concentration - NRG Fungus culture - 11/22/16 11:00 QUANTITY OF GROWTH . NRG FUNGUS REPORT FUNGUS GROWTH OBSERVED NRG Fungus culture SEE COMMEN NRG C DIFFICILE AG + TOXIN A/B. - 08/09/17 15:00 C DIFFICILE AG + TOXIN A/B. TNP NRG Serum ragweed IgE antibody assay - 01/14/18 15:30 Serum ragweed IgE antibody assay 8.9 % 10.0-20.0 Sputum Gram stain - 01/30/18 13:30 GRAM STAIN SPUTUM AND MIXED BACTERIAL DANNIELLE NRG Bacterial sputum culture - 01/30/18 13:30 FREE TEXT EXTERNAL SENSITIVITY REPORTED 02/02/18 10:25 NRG QUANTITY OF GROWTH Abundant Growth NRG Bacterial sputum culture [id number] NRG Mycobacterium species detection by organism specific culture - 01/30/18 13:30 Bacterial susceptibility panel - 01/30/18 13:30 Gentamicin susceptibility test by minimum inhibitory concentration < = NRG Tobramycin susceptibility test by minimum inhibitory concentration < = NRG Piperacillin/tazobactam susceptibility test by minimum inhibitory concentration S NRG Ciprofloxacin susceptibility test by minimum inhibitory concentration <= NRG Meropenem susceptibility test by minimum inhibitory concentration < = NRG Cefepime susceptibility test by minimum inhibitory concentration 2 NRG Encounters ACCT No. Visit Date/Time Discharge Status Pt. Type Provider Facility Loc./Unit Complaint [id number] 04/15/2018 00:10:00 04/15/2018 23:59:59 CLS Preadmit RILEY CUENCA DO [facility] LAB COPD [id number] 01/14/2018 14:57:00 02/12/2018 00:01:00 DIS Outpatient RILEY CUENCA DO [facility] COPD [id number] 12/14/2017 09:27:00 12/14/2017 11:50:00 DIS Outpatient MAYELIN MCKEON MD [facility] CATARACT RIGHT EYE [id number] 12/12/2017 05:48:00 12/12/2017 13:57:00 DIS Outpatient MAYELIN MCKEON MD [facility] PREOP CATARACT RIGHT EYE [id number] 08/08/2017 16:13:00 08/08/2017 23:59:59 CLS Outpatient JORDAN BROWN MD [facility] LAB R19.7 [id number] 03/30/2017 14:41:00 03/30/2017 23:59:59 CLS Outpatient SANTOS ROSAS MD [facility] DYSPHAGIA,MALFUNCTIONG GASTROSTOMY TUBE [id number] 02/19/2017 00:20:00 02/19/2017 23:59:59 CLS Preadmit RILEY CUENCA DO [facility] LAB R06.00,M54.2 [id number] 11/21/2016 16:00:00 02/18/2017 00:01:00 DIS Outpatient RILEY CUENCA DO [facility] LAB R06.00,M54.2 [id number] 01/19/2017 10:05:00 01/19/2017 12:40:00 DIS Outpatient SANTOS ORSAS MD [facility] MALFUNCTIONING PEG TUBE [id number] 01/18/2017 11:40:00 01/18/2017 23:59:59 CLS Outpatient SANTOS ROSAS MD [facility] PREOP CHANGE PEG TUBE [id number] 11/21/2016 13:42:00 11/21/2016 23:59:59 CLS Outpatient RILEY CUENCA DO [facility] RAD BRONCHIECTASIS J47.9 [id number] 09/07/2016 13:25:00 09/07/2016 16:00:00 DIS Outpatient VIANEY FU APRN [facility] WOUNDCARE [id number] 08/30/2016 14:20:00 08/30/2016 23:59:59 CLS Outpatient BERNADINE NICHOLE MD [facility] LAB COUGH [id number] 10/05/2015 13:45:00 10/05/2015 14:47:00 DIS Outpatient STEPHANIE JOHNSON, JORDAN Quinones [facility] REHAB ASPIRATION PNEUMONIA; DYSPHAGIA
--- NOTE | 2018-06-30 16:50 | ED General ---
General Chief Complaint: General Problems/Pain Stated Complaint: TACHYCARDIA/SOB Nursing Triage Note: ARRIVED VIA WC FROM HOME. RECENTLY DISCHARGED FROM [facility] FOR DEHYDRATION FROM SUN TILL TODAY. STATES HE STARTED HAVING SOA AND FEELING PANIKED AND CALLED HIS SON TO COME TAKE HIM TO THE HOSPITAL. PT HAS A PEGTUBE PLACED AFTER AFTER ASPIRATION AFTER A SURGERY. STATES HE HAS PASSED X3 SWALLOW STUDIES THAT HE HAS PASSED NOW. Nursing Sepsis Screen: No Definite Risk Source of Information: Patient Exam Limitations: No Limitations (MAE WATTERS MD) History of Present Illness Date Seen by Provider: Jun 30, 2018 Time Seen by Provider: 16:45 Initial Comments The patient is a 72-year-old white male known to me. 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 He reports that recent times have been difficult. He was to have a total knee replacement to be performed by Dr. Guilherme Khan. During the planning stages he was found to have difficulties with his cervical spine. He had surgery there and in the postoperative period aspirated. 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 He states that he hopes to pass a 3 swallow test in order to attempt to eat in the normal fashion. He reports that he got out of [facility] today about 3 hours prior to this visit. He had been there for 4 days presumably because of severe dehydration. He states that on day 1 and he received an immediate 1 L bolus and then subsequently 7 L over the following 3 days. He felt much better. He did not note any edema. After arriving home his son noted that his ankles were quite swollen and marked by the elastic on his socks. He began to feel short of breath and also noted palpitations. He has no previous history of heart disease. He is noted to be febrile at admission to ER Timing/Duration: 1 Week (MAE WATTERS MD) Allergies and Home Medications Allergies Coded Allergies: No Known Allergies (Unverified Allergy, Unknown, 01/19/17) Home Medications Baclofen 20 Mg Tablet, 10 MG PO TID PRN for MUSCLE SPASMS, (Reported) Budesonide/Formoterol Fumarate 10.2 Gm Hfa.aer.ad, 2 PUFF IH BID, (Reported) Finasteride 5 Mg Tablet, 5 MG PO DAILY, (Reported) Gabapentin 100 Mg Capsule, 100 MG PO HS, (Reported) Oxycodone HCl 5 Mg Tablet, 10 MG PO TID PRN for PAIN-MILD TO MODERATE, (Reported ) TAKE 2 (5MG) TABS Tamsulosin HCl 0.4 Mg Cap.er.24h, 0.4 MG PO HS, (Reported) Tiotropium [place] 1 Inh Aerp, 2 INH IH DAILY, (Reported) Patient Home Medication List Home Medication List Reviewed: Yes (REYNALDO CAMPBELL DO) Review of Systems Review of Systems Constitutional: see HPI Respiratory: short of breath Cardiovascular: palpitations Gastrointestinal: dysphagia Musculoskeletal: muscle weakness Skin: no symptoms reported Psychiatric/Neurological: No Symptoms Reported Hematologic/Lymphatic: No Symptoms Reported Immunological/Allergic: no symptoms reported Pedal edema (MAE WATTERS MD) Past Rorzcjy-Htfxmb-Fyvoda Hx Patient Social History Type Used: Cigarettes Former Smoker, Quit: Jan 19, 2015 Recent Foreign Travel: No Contact w/Someone Who Travel: No Recent Infectious Disease Expo: No Recent Hopitalizations: No (MAE WATTERS MD) Immunizations Up To Date Date of Pneumonia Vaccine: Jan 20, 2016 (MAE WATTERS MD) Seasonal Allergies Seasonal Allergies: No (MAE WATTERS MD) Past Medical History Surgeries: Yes (BACK, MASTECTOMY, HERNIA, CATARACT) Tonsillectomy Respiratory: Yes (EMPHYSEMA, COPD, WEARS OXYGEN AT HS) COPD Currently Using CPAP: No Currently Using BIPAP: No Cardiac: No Neurological: No Prostate Problems Gastrointestinal: Yes (CANNOT SWALLOW, PEG TUBE) Musculoskeletal: Yes (C3-[address]) Endocrine: No Cataract, Dysphagia Hearing Impairment: Denies Cancer: Yes (MULTIPLE MYELOMA) Did You Recieve Any Treatments: No Blood Disorders: Yes (MULTIPLE MYELOMA) (MAE WATTERS MD) Surgeries: Yes (CATARACT) Eye Surgery Cancer: Yes (MULTIPLE MYELOMA) Blood Disorders: Yes (MULTIPLE MYELOMA, MACROCYTIC ANEMIA) (REYNALDO CAMPBELL DO) Physical Exam Vital Signs Vital Signs - First Documented 06/30/18 06/30/18 16:18 17:25 Temp 101.0 Pulse 112 Resp 18 B/P (MAP) 144/80 (101) Pulse Ox 95 O2 Delivery Nasal Cannula O2 Flow Rate 2.00 (REYNALDO CAMPBELL DO) Vital Signs Capillary Refill : Less Than 3 Seconds (MAE WATTERS MD) Height, Weight, BMI Height: 5'5.00" Weight: 132lbs. 0.0oz. [id number]; 21.6 BMI Method:Stated General Appearance: Other (appears older than stated age. His unwilling to lie down supine) Eyes: Bilateral Eye Normal Inspection HEENT: Normal ENT Inspection Neck: Normal Inspection Respiratory: Other (cough and crackles) Cardiovascular: Tachycardia Gastrointestinal: Other Back: Normal Inspection Extremity: Swelling, Other (. To palpation and is slow to refill.) Neurologic/Psychiatric: Alert, Oriented x3, No Motor/Sensory Deficits, Normal Mood/Affect, rover tender II-XII Norm as Tested Skin: Normal Color, Warm/Dry Lymphatic: No Adenopathy (MAE WATTERS MD) Focused Exam Lactate Level 06/30/18 16:45: Lactic Acid Level 1.37 (REYNALDO CAMPBELL DO) Lactic Acid Level (REYNALDO CAMPBELL DO) Progress/Results/Core Measures Suspected Sepsis Recent Fever Within 48 Hours: No Infection Criteria Present: Suspected New Infection New/Unexplained Altered Menta: No Sepsis Screen: No Definite Risk SIRS Temperature: Pulse: 112 Respiratory Rate: 18 Laboratory Tests 06/30/18 16:45: White Blood Count 7.1 Blood Pressure 144 /80 Mean: 101 06/30/18 16:45: Lactic Acid Level 1.37 Laboratory Tests 06/30/18 16:45: Creatinine 0.85, Platelet Count 167, Total Bilirubin 0.8 (MAE WATTERS MD) Results/Orders Lab Results Laboratory Tests Test 06/30/18 16:45 Range/Units White Blood Count 7.1 4.3-11.0 10^3/uL Red Blood Count 2.42 L 4.35-5.85 10^6/uL Hemoglobin 8.7 L 13.3-17.7 G/DL Hematocrit 26 L 40-54 % Mean Corpuscular Volume 108 H 80-99 FL Mean Corpuscular Hemoglobin 36 H 25-34 PG Mean Corpuscular Hemoglobin Concent 33 32-36 G/DL Red Cell Distribution Width 13.8 10.0-14.5 % Platelet Count 167 130-400 10^3/uL Mean Platelet Volume 10.6 H 7.4-10.4 FL Neutrophils (%) (Auto) 86 H 42-75 % Lymphocytes (%) (Auto) 7 L 12-44 % Monocytes (%) (Auto) 7 0-12 % Eosinophils (%) (Auto) 1 0-10 % Basophils (%) (Auto) 0 0-10 % Neutrophils # (Auto) 6.1 1.8-7.8 X 10^3 Lymphocytes # (Auto) 0.5 L 1.0-4.0 X 10^3 Monocytes # (Auto) 0.5 0.0-1.0 X 10^3 Eosinophils # (Auto) 0.1 0.0-0.3 10^3/uL Basophils # (Auto) 0.0 0.0-0.1 10^3/uL Neutrophils % (Manual) 72 % Lymphocytes % (Manual) 10 % Monocytes % (Manual) 8 % Eosinophils % (Manual) 0 % Basophils % (Manual) 1 % Band Neutrophils 6 % Reactive Lymphocytes 3 % Toxic Granulation 1+ Clumped Platelets SLIGHT Poikilocytosis SLIGHT Macrocytosis SLIGHT Stomatocytes SLIGHT Urine Color YELLOW Urine Clarity CLEAR Urine pH 5 5-9 Urine Specific [place] 1.010 L 1.016-1.022 Urine Protein 1+ H NEGATIVE Urine Glucose (UA) NEGATIVE NEGATIVE Urine Ketones 2+ H NEGATIVE Urine Nitrite NEGATIVE NEGATIVE Urine Bilirubin NEGATIVE NEGATIVE Urine Urobilinogen NORMAL NORMAL MG/DL Urine Leukocyte Esterase NEGATIVE NEGATIVE Urine RBC (Auto) 2+ H NEGATIVE Urine RBC NONE /HPF Urine WBC 2-5 /HPF Urine Squamous Epithelial Cells RARE /HPF Urine Renal Epithelial Cells NONE /HPF Urine Crystals NONE /LPF Urine Bacteria TRACE /HPF Urine Casts NONE /LPF Urine Mucus SMALL H /LPF Urine Culture Indicated NO Sodium Level 139 135-145 MMOL/L Potassium Level 3.6 3.6-5.0 MMOL/L Chloride Level 104 98-107 MMOL/L Carbon Dioxide Level 21 21-32 MMOL/L Anion Gap 14 5-14 MMOL/L Blood Urea Nitrogen 9 7-18 MG/DL Creatinine 0.85 0.60-1.30 MG/DL Estimat Glomerular Filtration Rate > 60 BUN/Creatinine Ratio 11 Glucose Level 101 70-105 MG/DL Lactic Acid Level 1.37 0.50-2.00 MMOL/L Calcium Level 9.1 8.5-10.1 MG/DL Corrected Calcium 9.5 8.5-10.1 MG/DL Total Bilirubin 0.8 0.1-1.0 MG/DL Aspartate Amino Transf (AST/SGOT) 23 5-34 U/L Alanine Aminotransferase (ALT/SGPT) 18 0-55 U/L Alkaline Phosphatase 80 40-136 U/L Troponin I < 0.30 <0.30 NG/ML B-Type Natriuretic Peptide 717.7 H <100.0 PG/ML Total Protein 6.9 6.4-8.2 GM/DL Albumin 3.5 3.2-4.5 GM/DL Procalcitonin 0.12 H <0.10 NG/ML (REYNALDO CAMPBELL DO) Micro Results Microbiology 06/30/18 Influenza Types A,B Antigen (JESSICA) - Final, Complete (REYNALDO CAMPBELL DO) My Orders Orders - REYNALDO CAMPBELL DO BNP (06/30/18 18:11) Troponin I (06/30/18 18:11) Influenza A And B Antigens (06/30/18 18:11) Cefepime Injection (Maxipime Injection) (06/30/18 19:15) Furosemide Injection (Lasix Injection) (07/01/18 09:00) Furosemide Injection (Lasix Injection) (06/30/18 19:19) Procalcitonin (Pct) (06/30/18 19:25) Ekg Tracing (06/30/18 19:41) O2 (06/30/18 19:41) Monitor-Rhythm Ecg Trace Only (06/30/18 19:41) Ekg Tracing (06/30/18 20:28) (REYNALDO CAMPBELL DO) Medications Given in ED Current Medications Medications Dose Ordered Sig/[place] Route Start Time Stop Time Status Last Admin Dose Admin Cefepime HCl 2000 mg/Sodium Chloride 50 ml @ 100 mls/hr ONCE ONCE IV 06/30/18 19:15 18 19:44 DC 06/30/18 19:41 100 MLS/HR Furosemide 40 mg STK-MED ONCE .ROUTE 06/30/18 19:19 06/30/18 19:21 DC 06/30/18 19:25 40 MG (JEAN CLAUDENICOLEA Katherine BOTELLO) Vital Signs/I&O 06/30/18 21:00 Temp 85.0 Pulse 85 Resp 27 B/P (MAP) 159/100 (119) Pulse Ox 98 O2 Flow Rate 2.00 07/01/18 00:00 Intake Total 50 ml Balance 50 ml (REYNALDO CAMPBELL DO) Vital Signs/I&O Capillary Refill : Less Than 3 Seconds (MAE WATTERS MD) Blood Pressure Mean: 101 Progress Note : Progress Note 1800--ASSUMED CARE FROM DR. WATTERS, ALL TESTS ARE BACK PT STATES HE HAS MULTIPLE MYELOMA AND CHRONIC MACROCYTIC ANEMIA, BUT NORMALLY HGB IS AROUND 11, AND STATES THAT IT WAS AROUND 11 THE LAST TIME IT WAS CHECKED , TO HIS KNOWLEDGE. PT DOES NOT HAVE ANY COMPLAINTS OF CHEST PAIN OR SHORTNESS OF BREATH AT THIS TIME. HEART RATE AND TEMP DOWN AT TIME OF TRANSFER O2 SATS AND OTHER VITALS STABLE (REYNALDO CAMPBELL DO) ECG EKG : EKG Time: 20:22 Rate: 94 Rhythm: Normal Sinus (WITH MUCH ARTIFACT SECONDARY TO PT MOVEMENT/ UNCOOOPERATIVENESS) Comment EKG #3-AT 2024, RATE 80, NSR WITH MUCH ARTIFACT SECONDARY TO PT MOVEMENT/ UNCOOPERATIVENESS (REYNALDO CAMPBELL DO) Diagnostic Imaging Comments CXR--BIBASILAR INFILTRATES, CARDIAC ENLARGEMENT, WITH EFFUSIONS--CHF VS PNEUMONIA Reviewed: Reviewed by Me (REYNALDO CAMPBELL DO) Departure Communication (Admissions) Update given and care turned over to Dr. Campbell at 1802 (MAE WATTERS MD) 1905--CALLED [facility], DR. SAHU 1914--SPOKE WITH DR. SAHU, SHE STATES HIS PHYSICIAN GROUP ADMITS TO THEMSELVES. PAGING DR. BAXTER. 1921--SPOKE WITH DR. BAXTER, ACCEPTS PT FOR ADMIT. (REYNALDO CAMPBELL DO) Impression Primary Impression: CHF (congestive heart failure) Additional Impressions: Pneumonia Anemia Sepsis Disposition: XFER SHT-TRM HOSP Condition: Stable Departure-Patient Inst. Referrals: JORDAN BROWN MD (PCP/Family) Primary Care Physician MAE WATTERS MD Jun 30, 2018 16:50 REYNALDO CAMPBELL DO Jun 30, 2018 18:14
[2018-06-30 17:29] LABS: BASOPHILS % (AUTO) 0 % (0-10); EOSINOPHILS # (AUTO) 0.1 10^3/uL (0.0-0.3); EOSINOPHILS % (AUTO) 1 % (0-10); HEMATOCRIT 26 % (40-54); HEMOGLOBIN 8.7 G/DL (13.3-17.7); LYMPHOCYTES # (AUTO) 0.5 X 10^3 (1.0-4.0); LYMPHOCYTES % (AUTO) 7 % (12-44); MEAN CORPUSCULAR HEMOGLOBIN 36 PG (25-34); MEAN CORPUSCULAR HGB CONC 33 G/DL (32-36); MEAN CORPUSCULAR VOLUME 108 FL (80-99); MEAN PLATELET VOLUME 10.6 FL (7.4-10.4); MONOCYTES # (AUTO) 0.5 X 10^3 (0.0-1.0); MONOCYTES % (AUTO) 7 % (0-12); NEUTROPHILS # (AUTO) 6.1 X 10^3 (1.8-7.8); NEUTROPHILS % (AUTO) 86 % (42-75); PLATELET COUNT 167 10^3/uL (130-400); RED BLOOD COUNT 2.42 10^6/uL (4.35-5.85); RED CELL DISTRIBUTION WIDTH 13.8 % (10.0-14.5); WHITE BLOOD COUNT 7.1 10^3/uL (4.3-11.0)
[2018-06-30] MEDS ORDERED: IBUPROFEN TABLET 200 MG TAB PO ONE (17:30)
[2018-06-30 17:38] LABS: BILIRUBIN,URINE NEGATIVE (NEGATIVE); CLARITY,URINE CLEAR; COLOR,URINE YELLOW; GLUCOSE, URINE (UA) NEGATIVE (NEGATIVE); KETONES,URINE 2+ (NEGATIVE); LEUKOCYTE ESTERASE ,URINE NEGATIVE (NEGATIVE); NITRITE,URINE NEGATIVE (NEGATIVE); PH,URINE 5 (5-9); PROTEIN,URINE 1+ (NEGATIVE); UROBILINOGEN,URINE NORMAL (NORMAL)
[2018-06-30 17:42] LABS: ALANINE AMINOTRANSFERASE 18 U/L (0-55); ALBUMIN 3.5 GM/DL (3.2-4.5); ALKALINE PHOSPHATASE 80 U/L (40-136); BILIRUBIN,TOTAL 0.8 MG/DL (0.1-1.0); BUN/CREATININE RATIO 11; CALCIUM 9.1 MG/DL (8.5-10.1); CARBON DIOXIDE 21 MMOL/L (21-32); CHLORIDE 104 MMOL/L (98-107); CREATININE SERUM 0.85 MG/DL (0.60-1.30); GFR ESTIMATED > 60; GLUCOSE 101 MG/DL (70-105); POTASSIUM 3.6 MMOL/L (3.6-5.0); SODIUM 139 MMOL/L (135-145); TOTAL PROTEIN 6.9 GM/DL (6.4-8.2)
[2018-06-30 17:52] LABS: BACTERIA,URINE TRACE /HPF; SQUAMOUS EPITHELIAL CELL,UR RARE /HPF
--- NOTE | 2018-06-30 17:57 | Diagnostic Imaging Report ---
INDICATION: Shortness of breath. COMPARISON: None. FINDINGS: Single view of the chest demonstrates cardiac enlargement with small effusions and basilar infiltrates. This may represent pneumonia and/or CHF. There is no pneumothorax. Osseous structures are normal. IMPRESSION: Cardiac enlargement with basilar infiltrates with small effusions representing CHF versus pneumonia. Dictated by: Dictated on workstation # [id number]
[2018-06-30 18:01] LABS: BAND NEUTROPHILS 6 %; BASOPHILS % (MANUAL) 1 %; EOSINOPHILS % (MANUAL) 0 %; LYMPHOCYTES % (MANUAL) 10 %; MONOCYTES % (MANUAL) 8 %; NEUTROPHILS % (MANUAL) 72 %; PLATELET CLUMPS SLIGHT; POIKILOCYTOSIS SLIGHT; REACTIVE LYMPHOCYTES 3 %
[2018-06-30 18:02] LABS: STOMATOCYTES SLIGHT; TOXIC GRANULATION/VACUOLAZATIO 1+
[2018-06-30] MEDS ORDERED: CEFEPIME INJECTION 2,000 MG in NS (IVPB) 50 ML IV ONE (19:15)
[2018-06-30] MEDS ORDERED: FUROSEMIDE 40 MG/4 ML INJ (LASIX) ONE (19:19)
[2018-06-30 21:00] VITALS: BP 159/100
[2018-07-01] MEDS ORDERED: FUROSEMIDE 40 MG/4 ML INJ (LASIX) IVP SCH (09:00)
== END 2018-06-30 21:00 | disposition short-term general hospital (02) ==
LOC: EDUNIT# 16:18 → ER 16:20
DX: I50.9 Heart failure, unspecified (principal); J18.9 Pneumonia, unspecified organism; D64.9 Anemia, unspecified; A41.9 Sepsis, unspecified organism; J44.9 Chronic obstructive pulmonary disease, unspecified; Z80.7 Family history of other malignant neoplasms of lymphoid, hematopoietic and related tissues; Z98.1 Arthrodesis status; Z98.890 Other specified postprocedural states; Z87.891 Personal history of nicotine dependence; Z90.89 Acquired absence of other organs
CPT/HCPCS: 36415; 71045; 80053; 81000; 83605; 83880; 84145; 84484; 85007; 85027; 87040; 87804; 93005

== ENCOUNTER 2018-10-14 15:29 | Observation (INO) | payer MEDICARE, OTHER ==
[~2018-10-14] VITALS: Ht 165.1 cm; Wt 58.3 kg
[2018-10-14] MEDS ORDERED: RT-LEVALBUTEROL (XOPENEX) 1.25 MG/3 ML NEB NON-FORMULARY INH ONE (15:45)
[2018-10-14] MEDS ORDERED: NS IV 500 ML 500 ML IV ONE (15:45)
--- NOTE | 2018-10-14 15:52 | ED Respiratory ---
General Chief Complaint: Respiratory Problems Stated Complaint: SOA Nursing Triage Note: PATIENT TO ER VIA [facility] FROM HIS RESIDENCE WHERE HE RESIDES ALONE. PATIENT IS CONSCIOUS, ALERT AND ORIENTED X 4 COMPLAINING OF SHORTNESS OF BREATH X 3 DAYS. PATIENT ALSO COMPLAINING OF MUSCLE CRAMPS TO BILATERAL LOWER LEGS. NO EDEMA PRESENT TO LOWER EXTREMITIES. 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 BLOOD SUGAR CHECK FOR EMS WAS 104. Source: patient Exam Limitations: no limitations History of Present Illness Date Seen by Provider: Oct 14, 2018 Time Seen by Provider: 15:29 Initial Comments Patient presents to ER by EMS with chief complaint that he was having some shortness of breath since , 4 days ago. He's had an occasional nonproductive cough. No fevers or chills. He also has been having leg cramps since then. He uses albuterol as needed and is been averaging about 2 doses a day. He says when he uses it helps his breathing. He's having no nausea diarrhea or constipation. He has a PEG tube in place because he had difficulty swallowing, choking episodes and aspiration 4 years ago after an anterior cervical fusion. 6 months ago speech therapy gave him the okay to start eating soft foods such as applesauce. He denies last week having any choking episodes or difficulty swallowing or evidence of aspiration. He does have a history of COPD and quit smoking several years ago. EMS gave her a DuoNeb on route and the patient reported significant improvement. The patient's daughter from [place] called and spoke to the nurse and told her that the patient has been acting on for the past for 5 days since he is been calling her thinking that he was coming up to visit but had no plans. She also says that he got in his car drove around gas but did not have any particular place that he was going to him was very confused. She has tried to get him to look into some kind of assisted living but the patient has refused to entertain this. The patient states that yesterday he did have a excursion where he was very confused out driving around thought he was putting gas in his car then realizes that the front gas station drove home and today he decided to wear his oxygen that he usually only wears at night's sleep and could not decide whether or not his trip to [place] where he has no business going was a dream or really happened since his son came by and took his keys away and tried to get him to go to the hospital yesterday. He found his keys grow back up to [place] decided the gas station was really there and it really happened and asked why he decided he probably should come to the hospital today. 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 Allergies and Home Medications Allergies Coded Allergies: No Known Allergies (Unverified Allergy, Unknown, 01/19/17) Home Medications Baclofen 20 Mg Tablet, 10 MG PO TID PRN for MUSCLE SPASMS, (Reported) Budesonide/Formoterol Fumarate 10.2 Gm Hfa.aer.ad, 2 PUFF IH BID, (Reported) Finasteride 5 Mg Tablet, 5 MG PO DAILY, (Reported) Gabapentin 100 Mg Capsule, 100 MG PO HS, (Reported) Oxycodone HCl 5 Mg Tablet, 10 MG PO TID PRN for PAIN-MILD TO MODERATE, (Reported ) TAKE 2 (5MG) TABS Tamsulosin HCl 0.4 Mg Cap.er.24h, 0.4 MG PO HS, (Reported) Tiotropium [place] 1 Inh Aerp, 2 INH IH DAILY, (Reported) Patient Home Medication List Home Medication List Reviewed: Yes Review of Systems Review of Systems Constitutional: No chills, No malaise EENTM: No ear pain, No eye pain Respiratory: cough; No phlegm; short of breath, wheezing Cardiovascular: No chest pain, No Hx of Intervention, No palpitations Gastrointestinal: No abdominal pain, No constipation, No diarrhea, No dysphagia Genitourinary: No discharge, No dysuria Musculoskeletal: see HPI (bilateral lower extremity calf cramping for the past 4 days); No back pain, No joint pain Past Fyjzggh-Lfkfeu-Rnziwq Hx Patient Social History Alcohol Use: Denies Use Recreational Drug Use: No Smoking Status: Former Smoker Type Used: Cigarettes Former Smoker, Quit: Jan 19, 2015 Recent Foreign Travel: No Contact w/Someone Who Travel: No Recent Infectious Disease Expo: No Recent Hopitalizations: No Immunizations Up To Date Date of Pneumonia Vaccine: Jan 20, 2016 Seasonal Allergies Seasonal Allergies: No Past Medical History Surgeries: Yes (CATARACT) Eye Surgery Respiratory: Yes (EMPHYSEMA, COPD, WEARS OXYGEN AT HS) COPD Currently Using CPAP: No Currently Using BIPAP: No Cardiac: No Neurological: No Prostate Problems Gastrointestinal: Yes (CANNOT SWALLOW, PEG TUBE) Musculoskeletal: Yes (C3-[address]) Endocrine: No Cataract, Dysphagia Hearing Impairment: Denies Cancer: Yes (MULTIPLE MYELOMA) Did You Recieve Any Treatments: No Blood Disorders: Yes (MULTIPLE MYELOMA, MACROCYTIC ANEMIA) Physical Exam Vital Signs - First Documented 10/14/18 10/14/18 15:29 16:25 Temp 98.7 Pulse 117 Resp 22 B/P (MAP) 125/76 (92) Pulse Ox 92 O2 Delivery Room Air Capillary Refill : Less Than 3 Seconds Height: 5'5.00" Weight: 123lbs. 0.0oz. [id number]; 21.6 BMI Method:Stated General Appearance: WD/WN, no apparent distress Eyes: Bilateral Eye Normal Inspection, Bilateral Eye PERRL, Bilateral Eye EOMI HEENT: PERRL/EOMI, normal ENT inspection, pharynx normal (oropharynx is mildly dry) Neck: full range of motion, supple, normal inspection Respiratory: no respiratory distress, no accessory muscle use, rhonchi ( bilateral bases), wheezing (mild bilateral) Cardiovascular: normal peripheral pulses, regular rate, rhythm, no edema Gastrointestinal: normal bowel sounds, non tender, soft Neurologic/Psychiatric: no motor/sensory deficits, alert, normal mood/affect, oriented x 3 Skin: normal color, warm/dry Progress/Results/Core Measures Suspected Sepsis Recent Fever Within 48 Hours: No Infection Criteria Present: Suspected New Infection New/Unexplained Altered Menta: No Sepsis Screen: Possible Sepsis Risk SIRS Temperature:98.7 Pulse: 117 Respiratory Rate: 22 Laboratory Tests 10/14/18 15:30: White Blood Count 9.2 Blood Pressure 125 /76 Mean: 92 Laboratory Tests 10/14/18 15:30: Creatinine 1.35H, Platelet Count 186, Total Bilirubin 0.5 Results/Orders Lab Results Laboratory Tests Test 10/14/18 15:30 10/14/18 17:52 Range/Units White Blood Count 9.2 4.3-11.0 10^3/uL Red Blood Count 3.02 L 4.35-5.85 10^6/uL Hemoglobin 10.8 L 13.3-17.7 G/DL Hematocrit 33 L 40-54 % Mean Corpuscular Volume 109 H 80-99 FL Mean Corpuscular Hemoglobin 36 H 25-34 PG Mean Corpuscular Hemoglobin Concent 33 32-36 G/DL Red Cell Distribution Width 13.8 10.0-14.5 % Platelet Count 186 130-400 10^3/uL Mean Platelet Volume 10.5 H 7.4-10.4 FL Neutrophils (%) (Auto) 78 H 42-75 % Lymphocytes (%) (Auto) 19 12-44 % Monocytes (%) (Auto) 3 0-12 % Eosinophils (%) (Auto) 0 0-10 % Basophils (%) (Auto) 0 0-10 % Neutrophils # (Auto) 7.1 1.8-7.8 X 10^3 Lymphocytes # (Auto) 1.7 1.0-4.0 X 10^3 Monocytes # (Auto) 0.3 0.0-1.0 X 10^3 Eosinophils # (Auto) 0.0 0.0-0.3 10^3/uL Basophils # (Auto) 0.0 0.0-0.1 10^3/uL Sodium Level 140 135-145 MMOL/L Potassium Level 4.2 3.6-5.0 MMOL/L Chloride Level 103 98-107 MMOL/L Carbon Dioxide Level 24 21-32 MMOL/L Anion Gap 13 5-14 MMOL/L Blood Urea Nitrogen 36 H 7-18 MG/DL Creatinine 1.35 H 0.60-1.30 MG/DL Estimat Glomerular Filtration Rate 52 BUN/Creatinine Ratio 27 Glucose Level 148 H 70-105 MG/DL Calcium Level 10.0 8.5-10.1 MG/DL Corrected Calcium 10.2 H 8.5-10.1 MG/DL Magnesium Level 2.2 1.8-2.4 MG/DL Total Bilirubin 0.5 0.1-1.0 MG/DL Aspartate Amino Transf (AST/SGOT) 21 5-34 U/L Alanine Aminotransferase (ALT/SGPT) 14 0-55 U/L Alkaline Phosphatase 76 40-136 U/L C-Reactive Protein High Sensitivity 6.92 H 0.00-0.50 MG/DL B-Type Natriuretic Peptide 30.7 <100.0 PG/ML Total Protein 8.0 6.4-8.2 GM/DL Albumin 3.8 3.2-4.5 GM/DL Blood Gas Puncture Site R RAD Blood Gas Patient Temperature 98.7 Arterial Blood pH 7.38 7.37-7.43 Arterial Blood Partial Pressure CO2 49 H 35-45 MMHG Arterial Blood Partial Pressure O2 36 *L 79-93 MMHG Arterial Blood HCO3 28 H 23-27 MMOL/L Arterial Blood Total CO2 29.5 21.0-31.0 MMOL/L Arterial Blood Oxygen Saturation 61 L 94-100 % Arterial Blood Base Excess 3.3 H -2.5-2.5 MMOL/L Robinson Test YES-POS Blood Gas Ventilator Setting NO Blood Gas Inspired Oxygen 2L My Orders Orders - AYLEEN MARX BNP (10/14/18 15:45) Cbc With Automated Diff (10/14/18 15:45) Comprehensive Metabolic Panel (10/14/18 15:45) Hs C Reactive Protein (10/14/18 15:45) Magnesium (10/14/18 15:45) Saline Lock/Iv-Start (10/14/18 15:45) Ns Iv 500 Ml (Sodium Chloride 0.9%) (10/14/18 15:45) Levalbuterol (Non-Formulary) (Xopenex (N (10/14/18 15:45) Ketorolac Injection (Toradol Injection) (10/14/18 16:00) Chest 1 View, Ap/Pa Only (10/14/18 16:08) Ceftriaxone For Iv Use (Rocephin For I (10/14/18 17:45) Azithromycin Tablet (Zithromax Tablet) (10/14/18 17:45) Methylprednisolone Sod Succ (Solu-Medrol (10/14/18 17:45) Arterial Blood Gas (10/14/18 17:33) Medications Given in ED Current Medications Medications Dose Ordered Sig/[place] Route Start Time Stop Time Status Last Admin Dose Admin Azithromycin 500 mg ONCE ONCE PO 10/14/18 17:45 10/14/18 17:46 DC 10/14/18 18:05 500 MG Ceftriaxone Sodium 1000 mg/ Sterile Water 10 ml @ 200 mls/hr ONCE ONCE IV 10/14/18 17:45 10/14/18 17:47 DC 10/14/18 17:56 200 MLS/HR Ketorolac Tromethamine 30 mg ONCE ONCE IVP 10/14/18 16:00 10/14/18 16:01 DC 10/14/18 16:07 30 MG Levalbuterol HCl 1.25 mg ONCE ONCE INH 10/14/18 15:45 10/14/18 15:47 DC 10/14/18 16:25 1.25 MG Methylprednisolone Sodium Succinate 125 mg ONCE ONCE IVP 10/14/18 17:45 10/14/18 17:46 DC 10/14/18 17:53 125 MG Sodium Chloride 500 ml @ 0 mls/hr Q0M ONCE IV 10/14/18 15:45 10/14/18 15:47 DC 10/14/18 16:07 500 MLS/HR Vital Signs/I&O 10/14/18 10/14/18 15:29 16:25 Temp 98.7 Pulse 117 Resp 22 B/P (MAP) 125/76 (92) Pulse Ox 92 O2 Delivery Room Air Room Air Capillary Refill : Less Than 3 Seconds Blood Pressure Mean: 92 Progress Note #1: Time: 15:58 Progress Note Chest x-ray basic labs looking at the electrolytes, white count. The patient another Xopenex. We'll give him a half a liter of saline. The patient is alert and oriented 4 today however his oxygen sats we will dip down to 84-86% when he started talking or exerting himself and staying around 80 -90% on room air. Progress Note #2: Time: 17:30 Progress Note He has no white count fever or significant cough with phlegm production so we will put him on some antibiotics and steroids but presumptively he is having hypoxic delirium secondary to a COPD exacerbation. After the Xopenex his breathing did improve significantly however he still having some wheezing and still has some crackles along both bases. The patient's primary care doctor (Maria De Jesus) is at [facility] and he has requested to stay at [facility] since all of his records and previous stays are there. Progress Note #3: Time: 18:14 Progress Note 1800: Discussed the case with Dr. Denis and she agrees to accept the patient to the floor observation. 1814: After discussion with the patient that he's been accepted to [facility] the patient has decided if he's not to be seen by his personal doctor at [facility] and he would prefer to stay here at via [facility] [place]. We will discuss the case with Dr. Kerns. Alerted [facility] that we would no longer require transfer. Diagnostic Imaging Diagonstic Imaging: Xray Plain Films/CT/US/NM/MRI: chest (2v) Comments [facility] [place] [place] NAME: JYOTI PERDOMO REC#: [id number] PT STATUS: REG ER : 1945 PHYSICIAN: AYLEEN MARX MD ADMIT DATE: 10/14/18/ER Draft Date of Exam:10/14/18 CHEST 1 VIEW, AP/PA ONLY PATIENT HISTORY: Shortness of air. TECHNIQUE: Single frontal view of the chest. COMPARISON: 06/30/2018. FINDINGS: Lung volumes are normal. There are bibasilar interstitial opacities which appear similar to 06/30/2018. This likely represents chronic scarring. No pleural effusion or pneumothorax is seen. Cervical spine fusion hardware is noted. The cardiac silhouette is stable in size. IMPRESSION: Chronic interstitial opacities in the lung bases, most likely chronic scarring, although underlying infiltrate would be difficult to exclude. No new airspace consolidation is seen. Dictated on workstation # [id number] Dict: 10/14/18 1632 Trans: 10/14/18 1637 [facility] [id number] Interpreted by: THIERRY WEATHERS MD Electronically signed by: Reviewed: Reviewed by Me Departure Communication (Admissions) Time/Spoke to Admitting Phy: 18:10 Discussed case that imaging findings with Dr. Kerns and he agrees to observe the patient. Impression Primary Impression: COPD exacerbation Additional Impressions: Delirium due to another medical condition Hypoxia Bilateral leg cramps Disposition: XFER SHT-TRM HOSP Condition: Stable Admissions Decision to Admit Reason: Admit from ER (General) Decision to Admit/Date: Oct 14, 2018 Time/Decision to Admit Time: 17:59 Departure-Patient Inst. Referrals: JORDAN BROWN MD (PCP/Family) Primary Care Physician AYLEEN MARX Oct 14, 2018 15:52
[2018-10-14 15:55] LABS: BASOPHILS % (AUTO) 0 % (0-10); EOSINOPHILS % (AUTO) 0 % (0-10); HEMATOCRIT 33 % (40-54); HEMOGLOBIN 10.8 G/DL (13.3-17.7); LYMPHOCYTES # (AUTO) 1.7 X 10^3 (1.0-4.0); LYMPHOCYTES % (AUTO) 19 % (12-44); MEAN CORPUSCULAR HEMOGLOBIN 36 PG (25-34); MEAN CORPUSCULAR HGB CONC 33 G/DL (32-36); MEAN CORPUSCULAR VOLUME 109 FL (80-99); MEAN PLATELET VOLUME 10.5 FL (7.4-10.4); MONOCYTES # (AUTO) 0.3 X 10^3 (0.0-1.0); MONOCYTES % (AUTO) 3 % (0-12); NEUTROPHILS # (AUTO) 7.1 X 10^3 (1.8-7.8); NEUTROPHILS % (AUTO) 78 % (42-75); PLATELET COUNT 186 10^3/uL (130-400); RED CELL DISTRIBUTION WIDTH 13.8 % (10.0-14.5); WHITE BLOOD COUNT 9.2 10^3/uL (4.3-11.0)
[2018-10-14] MEDS ORDERED: KETOROLAC 30 MG/ML VIAL IVP ONE (16:00)
[2018-10-14 16:10] LABS: ALBUMIN 3.8 GM/DL (3.2-4.5); BILIRUBIN,TOTAL 0.5 MG/DL (0.1-1.0); CREATININE SERUM 1.35 MG/DL (0.60-1.30); MAGNESIUM 2.2 MG/DL (1.8-2.4); POTASSIUM 4.2 MMOL/L (3.6-5.0)
--- NOTE | 2018-10-14 16:34 | NUR ---
PATIENT'S DAUGHTER KWAN CALLED AND STATES PATIENT HAS BEEN HAVING INCREASED CONFUSION. SHE STATES PATIENT DROVE HIS CAR YESTERDAY UNTIL IT RAN OUT OF GAS BUT DID NOT REMEMBER WHERE HE WAS GOING OR WHY HE WAS DRIVING. SHE ALSO STATES THAT HE TOLD HER HE SAW AND TALKED TO CERTAIN FAMILY MEMBERS WHICH SHE STATES OVER TWO YEARS AGO. SHE STATES PATIENT HAS REFUSED SINCE SUNDAY TO COME TO THE ER BUT TODAY SHE CONVINCED HIM TO COME.
--- NOTE | 2018-10-14 16:37 | Diagnostic Imaging Report ---
PATIENT HISTORY: Shortness of air. TECHNIQUE: Single frontal view of the chest. COMPARISON: 06/30/2018. FINDINGS: Lung volumes are normal. There are bibasilar interstitial opacities which appear similar to 06/30/2018. This likely represents chronic scarring. No pleural effusion or pneumothorax is seen. Cervical spine fusion hardware is noted. The cardiac silhouette is stable in size. IMPRESSION: Chronic interstitial opacities in the lung bases, most likely chronic scarring, although underlying infiltrate would be difficult to exclude. No new airspace consolidation is seen. Dictated by: Dictated on workstation # [id number]
--- NOTE | 2018-10-14 17:14 | NUR ---
PATIENT STATES IF HE IS GOING TO BE ADMITTED HE WANTS TRANSFERRED TO [facility] BECAUSE THAT IS WHERE HIS PRIMARY DOCTOR IS AT. DR MARX NOTIFIED.
[2018-10-14] MEDS ORDERED: AZITHROMYCIN 250 MG TAB (ZITHROMAX) PO ONE (17:45)
[2018-10-14] MEDS ORDERED: methylPREDNISolone 125 MG (Solu-MEDROL) VIAL IVP ONE (17:45)
[2018-10-14] MEDS ORDERED: cefTRIAXone FOR IV USE 1,000 MG in WATER (STERILE) FOR INJECTION 10 ML IV ONE (17:45)
[2018-10-14 17:59] LABS: ABG BASE EXCESS 3.3 MMOL/L (-2.5-2.5); ABG OXYGEN SATURATION 61 % (94-100); ABG PCO2 49 MMHG (35-45); ABG PH 7.38 (7.37-7.43); ABG TCO2 29.5 MMOL/L (21.0-31.0)
--- NOTE | 2018-10-14 17:59 | NUR ---
PATIENT STATES HE CAN ONLY TAKE ORAL MEDS WITH THICKENED ITEMS SUCH APPLESAUCE. APPLESAUCE ORDERED FOR PATIENT.
[2018-10-14 18:00] LABS: ABG PO2 36 MMHG (79-93); ALLENS TEST YES-POS; INSPIRED O2 2L; PATIENT TEMP 98.7; VENTILATOR NO
--- OUTSIDE RECORDS SUMMARY | 2018-10-14 18:50 | XMS REPORT | Continuity of Care Document ---
Author Author [facility] Organization [facility] Address Unknown Phone Unavailable Allergies Active Description Code Type Severity Reaction Onset Reported/Identified Relationship to Patient Clinical Status Yes No Known Allergies [id number] Drug Allergy Unknown N/A 01/19/2017 Medications There is no data. 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 01/22/2017 SANTOS ROSAS MD, [...] 12/14/2017 MAYELIN MCKEON MD Ot Z79.899 OTHER SENIOR LIVING (CURRENT) DRUG THERAPY 12/14/2017 MAYELIN MCKEON MD [...] DYSPNEA, UNSPECIFIED 01/14/2018 RALPH JOHNSON, SANTOS Ot E46 UNSPECIFIED PROTEIN-CALORIE MALNUTRITION 01/14/2018 RALPH JOHNSON, SANTOS Ot K94.23 GASTROSTOMY MALFUNCTION 01/14/2018 RALPH JOHNSON, SANTOS Ot R13.10 DYSPHAGIA, UNSPECIFIED 01/14/2018 STEPHANIE JOHNSON, JORDAN Quinones Ot R19.7 DIARRHEA, UNSPECIFIED 01/17/2018 JEOLLEN DO, RILEY C Ot 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 GAMMOPATHY [...] DO, RILEY C Ot R53.83 OTHER FATIGUE 06/30/2018 JEAN CLAUDE DO REYNALDO K Ot A41.9 SEPSIS, UNSPECIFIED ORGANISM 06/30/2018 JEAN CLAUDE DO REYNALDO K Ot D64.9 ANEMIA, UNSPECIFIED 06/30/2018 JEAN CLAUDE DO REYNALDO K Ot I50.9 HEART FAILURE, UNSPECIFIED 06/30/2018 JEAN CLAUDE DO REYNALDO K Ot J18.9 PNEUMONIA, UNSPECIFIED ORGANISM 06/30/2018 JEAN CLAUDE DO REYNALDO K Ot J44.9 CHRONIC OBSTRUCTIVE PULMONARY DISEASE, U 06/30/2018 JEAN CLAUDE NICOLE BOTELLOA K Ot R00.0 TACHYCARDIA, UNSPECIFIED 06/30/2018 JEAN CLAUDE DO REYNALDO K Ot Z80.7 FAM HX OF MALIG NEOPLM OF LYMPHOID, JOANN 06/30/2018 NICOLE SILVERIO DOA K Ot Z87.891 PERSONAL HISTORY OF NICOTINE DEPENDENCE 06/30/2018 REYNALDO SILVERIO DO K Ot Z90.89 ACQUIRED ABSENCE OF OTHER ORGANS 06/30/2018 REYNALDO SILVERIO DO Ot Z98.1 ARTHRODESIS STATUS 06/30/2018 REYNALDO SILVERIO DO Ot Z98.890 OTHER SPECIFIED POSTPROCEDURAL STATES 07/02/2018 REYNALDO SILVERIO DO Ot A41.9 SEPSIS, UNSPECIFIED ORGANISM 07/02/2018 REYNALDO SILVERIO DO K Ot D64.9 ANEMIA, UNSPECIFIED 07/02/2018 JEAN CLAUDE REYNALDO BOTELLO K Ot I50.9 HEART FAILURE, UNSPECIFIED 07/02/2018 JEAN CLAUDE REYNALDO BOTELLO K Ot J18.9 PNEUMONIA, UNSPECIFIED ORGANISM 07/02/2018 REYNALDO SILVERIO DO Ot J44.9 CHRONIC OBSTRUCTIVE PULMONARY DISEASE, U 07/02/2018 REYNALDO SILVERIO DO Ot R00.0 TACHYCARDIA, UNSPECIFIED 07/02/2018 REYNALDO SILVERIO DO Ot Z80.7 FAM HX OF MALIG NEOPLM OF LYMPHOID, JOANN 07/02/2018 REYNALDO SILVERIO DO Ot Z87.891 PERSONAL HISTORY OF NICOTINE DEPENDENCE 07/02/2018 REYNALDO SILVERIO DO Ot Z90.89 ACQUIRED ABSENCE OF OTHER ORGANS 07/02/2018 REYNALDO SILVERIO DO Ot Z98.1 ARTHRODESIS STATUS 07/02/2018 REYNALDO SILVERIO DO Ot Z98.890 OTHER SPECIFIED POSTPROCEDURAL STATES Procedures There is no data. Results Test Result Range Sputum Gram stain - 08/30/16 14:30 GRAM STAIN SPUTUM NUMEROUS GRAM NEGATIVE DIPLOCOCCI NRG Bacterial sputum culture - 08/30/16 14:30 FREE TEXT EXTERNAL WITH SCANT YEAST OBSERVED NRG QUANTITY OF GROWTH Abundant Growth NRG Bacterial sputum culture [id number] NR Bacterial susceptibility panel - 08/30/16 14:30 [...] 10:45 GRAM STAIN SPUTUM AND MIXED BACTERIAL BOY NRG Bacterial sputum culture - 11/20/16 10:45 Bacterial sputum culture NORMAL NRG Mycobacterium species detection by organism specific culture - 11/20/16 10:45 Mycobacterium species detection by organism specific culture FOOTNOTE NRG Fungus culture - 11/20/16 10:45 QUANTITY OF GROWTH Isolated NRG Fungus culture [id number] NRG IDENTIFICATION TO FOLLOW ID BY [facility] NRG Sputum Gram stain - 11/21/16 11:00 Sputum Gram stain Mixed bacterial boy NRG Bacterial sputum culture - 11/21/16 11:00 FREE TEXT EXTERNAL (MOLD FORM) NRG QUANTITY OF GROWTH Scant Growth NRG FREE TEXT ENTRY 2 PLUS NORMAL BOY NRG Bacterial sputum culture [id number] NRG Mycobacterium species detection by organism specific culture - 11/21/16 11:00 Mycobacterium species detection by organism specific culture FOOTNOTE NRG Fungus culture - 11/21/16 11:00 QUANTITY OF GROWTH Isolated NRG FTX;REPORTABLE SEE COMMENT NRG FUNGUS REPORT FUNGUS GROWTH OBSERVED NRG Fungus culture [id number] NRG Sputum Gram stain - 11/22/16 11:00 Sputum Gram stain Abundant mixed bacterial boy NRG Bacterial sputum culture - 11/22/16 11:00 FREE TEXT EXTERNAL SEE FUNGUS CULTURE NRG QUANTITY OF GROWTH Moderate Growth NRG Bacterial sputum culture [id number] NRG Mycobacterium species detection by organism specific [...] susceptibility test by minimum inhibitory concentration - NR Fungus culture - 11/22/16 11:00 QUANTITY OF GROWTH . NRG FUNGUS REPORT FUNGUS GROWTH OBSERVED NR Fungus culture SEE COMMEN NRG C DIFFICILE AG + TOXIN A/B. - 08/09/17 15:00 C DIFFICILE AG + TOXIN A/B. TNP NR Serum ragweed IgE antibody assay - 01/14/18 15:30 Serum ragweed IgE antibody assay 8.9 % 10.0-20.0 Sputum Gram stain - 01/30/18 13:30 GRAM STAIN SPUTUM AND MIXED BACTERIAL BOY NRG Bacterial sputum culture - 01/30/18 13:30 FREE TEXT EXTERNAL SENSITIVITY REPORTED 02/02/18 10:25 NRG QUANTITY OF GROWTH Abundant Growth NRG Bacterial sputum culture [id number] NR Mycobacterium species detection by organism specific culture [...] test by minimum inhibitory concentration 2 NRG Complete blood count (CBC) with automated white blood cell (WBC) differential - 06/30/18 16:45 Blood leukocytes automated count (number/volume) 7.1 10*3/uL 4.3-11.0 Blood erythrocytes automated count (number/volume) 2.42 10*6/uL 4.35-5.85 Venous blood hemoglobin measurement (mass/volume) 8.7 g/dL 13.3-17.7 Blood hematocrit (volume fraction) 26 % 40-54 Automated erythrocyte mean corpuscular volume 108 [foz_us] 80-99 Automated erythrocyte mean corpuscular hemoglobin (mass per erythrocyte) 36 pg 25-34 Automated erythrocyte mean corpuscular hemoglobin concentration measurement ( mass/volume) 33 g/dL 32-36 Automated erythrocyte distribution width ratio 13.8 % 10.0-14.5 Automated blood platelet count (count/volume) 167 10*3/uL 130-400 Automated blood platelet mean volume measurement 10.6 [foz_us] 7.4-10.4 Automated blood neutrophils/100 leukocytes 86 % 42-75 Automated blood lymphocytes/100 leukocytes 7 % 12-44 Blood monocytes/100 leukocytes 7 % 0-12 Automated blood eosinophils/100 leukocytes 1 % 0-10 Automated blood basophils/100 leukocytes 0 % 0-10 Blood neutrophils automated count (number/volume) 6.1 10*3 1.8-7.8 Blood lymphocytes automated count (number/volume) 0.5 10*3 1.0-4.0 Blood monocytes automated count (number/volume) 0.5 10*3 0.0-1.0 Automated eosinophil count 0.1 10*3/uL 0.0-0.3 Automated blood basophil count (count/volume) 0.0 10*3/uL 0.0-0.1 Blood lactic acid measurement (moles/volume) - 06/30/18 16:45 Blood lactic acid measurement (moles/volume) 1.37 mmol/L 0.50-2.00 Comprehensive metabolic panel - 06/30/18 16:45 Serum or plasma sodium measurement (moles/volume) 139 mmol/L 135-145 Serum or plasma potassium measurement (moles/volume) 3.6 mmol/L 3.6-5.0 Serum or plasma chloride measurement (moles/volume) 104 mmol/L 98-107 Carbon dioxide 21 mmol/L 21-32 Serum or plasma anion gap determination (moles/volume) 14 mmol/L 5-14 Serum or plasma urea nitrogen measurement (mass/volume) 9 mg/dL 7-18 Serum or plasma creatinine measurement (mass/volume) 0.85 mg/dL 0.60-1.30 Serum or plasma urea nitrogen/creatinine mass ratio 11 NRG Serum or plasma creatinine measurement with calculation of estimated glomerular filtration rate > NRG Serum or plasma glucose measurement (mass/volume) 101 mg/dL 70-105 Serum or plasma calcium measurement (mass/volume) 9.1 mg/dL 8.5-10.1 Serum or plasma total bilirubin measurement (mass/volume) 0.8 mg/dL 0.1-1.0 Serum or plasma alkaline phosphatase measurement (enzymatic activity/volume) 80 U/L 40-136 Serum or plasma aspartate aminotransferase measurement (enzymatic activity/ volume) 23 U/L 5-34 Serum or plasma alanine aminotransferase measurement (enzymatic activity/volume ) 18 U/L 0-55 Serum or plasma protein measurement (mass/volume) 6.9 g/dL 6.4-8.2 Serum or plasma albumin measurement (mass/volume) 3.5 g/dL 3.2-4.5 CALCIUM CORRECTED 9.5 mg/dL 8.5-10.1 Complete urinalysis with reflex to culture - 06/30/18 16:45 Urine color determination YELLOW NRG Urine clarity determination CLEAR NRG Urine pH measurement by test strip 5 5-9 Specific gravity of urine by test strip 1.010 1.016- 1.022 Urine protein assay by test strip, semi-quantitative 1+ NEGATIVE Urine glucose detection by automated test strip NEGATIVE NEGATIVE Erythrocytes detection in urine sediment by light microscopy 2+ NEGATIVE Urine ketones detection by automated test strip 2+ NEGATIVE Urine nitrite detection by test strip NEGATIVE NEGATIVE Urine total bilirubin detection by test strip NEGATIVE NEGATIVE Urine urobilinogen measurement by automated test strip (mass/volume) NORMAL NORMAL Urine leukocyte esterase detection by dipstick NEGATIVE NEGATIVE Automated urine sediment erythrocyte count by microscopy (number/high power field) NONE NRG Automated urine sediment leukocyte count by microscopy (number/high power field ) [HPF] NRG Bacteria detection in urine sediment by light microscopy TRACE NRG Squamous epithelial cells detection in urine sediment by light microscopy RARE NRG Crystals detection in urine sediment by light microscopy NONE NRG Casts detection in urine sediment by light microscopy NONE NRG Mucus detection in urine sediment by light microscopy SMALL NRG Complete urinalysis with reflex to culture NO NRG Renal epithelial cells detection in urine sediment by light microscopy NONE NRG Blood manual differential performed detection - 06/30/18 16:45 Blood monocytes/100 leukocytes 8 % NRG Manual blood segmented neutrophils/100 leukocytes 72 % NRG Blood band neutrophils/100 leukocytes 6 % NRG Manual blood lymphocytes/100 leukocytes 10 % NRG Manual eosinophils/100 leukocytes in nose 0 % NRG Manual blood basophils/100 leukocytes 1 % NRG Blood lymphocytes variant/100 leukocytes 3 % NRG Blood macrocytes detection by light microscopy SLIGHT NRG Blood toxic granules detection by light microscopy 1+ NRG Blood poikilocytosis detection by light microscopy SLIGHT NRG Blood stomatocytes detection by light microscopy SLIGHT NRG Blood platelet clump detection by light microscopy SLIGHT NRG Serum or plasma troponin i.cardiac measurement (mass/volume) - 06/30/18 16:45 Serum or plasma troponin i.cardiac measurement (mass/volume) < ng/ mL <0.30 Serum or plasma lithium measurement (moles/volume) - 06/30/18 16:45 BNP level 717.7 pg/mL <100.0 PROCALCITONIN (PCT) - 06/30/18 16:45 PROCALCITONIN (PCT) 0.12 ng/mL <0.10 Bacterial blood culture - 06/30/18 16:45 Bacterial blood culture NG NRG Bacterial blood culture - 06/30/18 17:45 Bacterial blood culture NG NRG Influenza virus A and B antigen detection - 06/30/18 18:21 FLU RESULT NEGATIVE FOR INFLUENZA A AND B ANTIGENS BY IA NRG Complete blood count (CBC) with automated white blood cell (WBC) differential - 10/14/18 15:30 Blood leukocytes automated count (number/volume) 9.2 10*3/uL 4.3-11.0 Blood erythrocytes automated count (number/volume) 3.02 10*6/uL 4.35-5.85 Venous blood hemoglobin measurement (mass/volume) 10.8 g/dL 13.3-17.7 Blood hematocrit (volume fraction) 33 % 40-54 Automated erythrocyte mean corpuscular volume 109 [foz_us] 80-99 Automated erythrocyte mean corpuscular hemoglobin (mass per erythrocyte) 36 pg 25-34 Automated erythrocyte mean corpuscular hemoglobin concentration measurement ( mass/volume) 33 g/dL 32-36 Automated erythrocyte distribution width ratio 13.8 % 10.0-14.5 Automated blood platelet count (count/volume) 186 10*3/uL 130-400 Automated blood platelet mean volume measurement 10.5 [foz_us] 7.4-10.4 Automated blood neutrophils/100 leukocytes 78 % 42-75 Automated blood lymphocytes/100 leukocytes 19 % 12-44 Blood monocytes/100 leukocytes 3 % 0-12 Automated blood eosinophils/100 leukocytes 0 % 0-10 Automated blood basophils/100 leukocytes 0 % 0-10 Blood neutrophils automated count (number/volume) 7.1 10*3 1.8-7.8 Blood lymphocytes automated count (number/volume) 1.7 10*3 1.0-4.0 Blood monocytes automated count (number/volume) 0.3 10*3 0.0-1.0 Automated eosinophil count 0.0 10*3/uL 0.0-0.3 Automated blood basophil count (count/volume) 0.0 10*3/uL 0.0-0.1 Comprehensive metabolic panel - 10/14/18 15:30 Serum or plasma sodium measurement (moles/volume) 140 mmol/L 135-145 Serum or plasma potassium measurement (moles/volume) 4.2 mmol/L 3.6-5.0 Serum or plasma chloride measurement (moles/volume) 103 mmol/L 98-107 Carbon dioxide 24 mmol/L 21-32 Serum or plasma anion gap determination (moles/volume) 13 mmol/L 5-14 Serum or plasma urea nitrogen measurement (mass/volume) 36 mg/dL 7-18 Serum or plasma creatinine measurement (mass/volume) 1.35 mg/dL 0.60-1.30 Serum or plasma urea nitrogen/creatinine mass ratio 27 NRG Serum or plasma creatinine measurement with calculation of estimated glomerular filtration rate 52 NRG Serum or plasma glucose measurement (mass/volume) 148 mg/dL 70-105 Serum or plasma calcium measurement (mass/volume) 10.0 mg/dL 8.5-10.1 Serum or plasma total bilirubin measurement (mass/volume) 0.5 mg/dL 0.1-1.0 Serum or plasma alkaline phosphatase measurement (enzymatic activity/volume) 76 U/L 40-136 Serum or plasma aspartate aminotransferase measurement (enzymatic activity/ volume) 21 U/L 5-34 Serum or plasma alanine aminotransferase measurement (enzymatic activity/volume ) 14 U/L 0-55 Serum or plasma protein measurement (mass/volume) 8.0 g/dL 6.4-8.2 Serum or plasma albumin measurement (mass/volume) 3.8 g/dL 3.2-4.5 CALCIUM CORRECTED 10.2 mg/dL 8.5-10.1 Magnesium - 10/14/18 15:30 Magnesium 2.2 mg/dL 1.8-2.4 Serum or plasma C reactive protein measurement (mass/volume) - 10/14/18 15:30 Serum or plasma C reactive protein measurement (mass/volume) 6.92 mg /dL 0.00-0.50 Serum or plasma lithium measurement (moles/volume) - 10/14/18 15:30 BNP level 30.7 pg/mL <100.0 Arterial blood gas measurement - 10/14/18 17:52 Blood pCO2 49 mm[Hg] 35-45 Blood pO2 36 mm[Hg] 79-93 Arterial blood bicarbonate measurement (moles/volume) 28 mmol/L 23-27 Arterial blood base excess by calculation 3.3 mmol/L -2.5 -2.5 Arterial blood oxygen saturation measurement 61 % 94-100 * Inhaled oxygen flow rate 2L NRG Arterial blood pH measurement with patient temperature correction 7.38 7.37-7.43 Arterial blood carbon dioxide, total measurement (moles/volume) 29.5 mmol/L 21.0-31.0 Body site R RAD NRG Assessment of wrist artery patency prior to arterial puncture YES- POS NRG Setting of ventilation mode NO NRG Measurement of body temperature 98.7 NRG Encounters ACCT No. Visit Date/Time Discharge Status Pt. Type Provider Facility Loc./Unit Complaint [id number] 06/30/2018 16:20:00 06/30/2018 21:00:00 DIS Emergency JEAN CLAUDE REYNALDO BOTELLO K [facility] ER TACHYCARDIA/SOB [id number] 04/15/2018 00:10:00 04/15/2018 23:59:59 CLS Preadmit RILEY CUENCA DO [facility] LAB COPD [id number] 01/14/2018 14:57:00 02/12/2018 00:01:00 DIS Outpatient RILEY CUENCA DO [facility] LAB COPD [id number] 12/14/2017 09:27:00 12/14/2017 11:50:00 DIS Outpatient MAYELIN MCKEON MD [facility] SDC CATARACT RIGHT EYE [id number] 12/12/2017 05:48:00 12/12/2017 13:57:00 DIS Outpatient MAYELIN MCKEON MD [facility] PREOP CATARACT RIGHT EYE [id number] 08/08/2017 16:13:00 08/08/2017 23:59:59 CLS Outpatient JORDAN BROWN MD [facility] LAB R19.7 [id number] 03/30/2017 14:41:00 03/30/2017 23:59:59 CLS Outpatient SANTOS ROSAS MD [facility] DYSPHAGIA,MALFUNCTIONG GASTROSTOMY TUBE [id number] 02/19/2017 00:20:00 02/19/2017 23:59:59 CLS Preadmit RILEY CUENCA DO [facility] LAB R06.00,M54.2 [id number] 11/21/2016 16:00:00 02/18/2017 00:01:00 DIS Outpatient RILEY CUENCA DO [facility] LAB R06.00,M54.2 [id number] 01/19/2017 10:05:00 01/19/2017 12:40:00 DIS Outpatient SANTOS ROSAS MD [facility] MALFUNCTIONING PEG TUBE [id number] 01/18/2017 11:40:00 01/18/2017 23:59:59 CLS Outpatient SANTOS ROSAS MD [facility] PREOP CHANGE PEG TUBE [id number] 11/21/2016 13:42:00 11/21/2016 23:59:59 CLS Outpatient RILEY CUENCA DO [facility] RAD BRONCHIECTASIS J47.9 [id number] 09/07/2016 13:25:00 09/07/2016 16:00:00 DIS Outpatient VIANEY FU APRN [facility] WOUNDCARE [id number] 08/30/2016 14:20:00 08/30/2016 23:59:59 CLS Outpatient BERNADINE NICHOLE MD [facility] LAB COUGH [id number] 10/05/2015 13:45:00 10/05/2015 14:47:00 DIS Outpatient JORDAN BROWN MD [facility] REHAB ASPIRATION PNEUMONIA; DYSPHAGIA [id number] 10/28/2018 14:15:00 PEN Preadmit RILEY CUENCA DO [facility] PULM DYSPNEA [id number] 10/14/2018 18:20:00 ACT Inpatient DUONG JOHNSON, MAE Murphy [facility] 4TH COPD EXACERBATION, HYPOXIA, DELIRIUM
--- NOTE | 2018-10-14 18:52 | NUR ---
PATIENT AGREES TO BE ADMITTED HERE [facility]. PATIENT'S DAUGHTER TOM CANALES NOTIFIED AT HER REQUEST THAT PATIENT WILL BE ADMITTED TO ROOM 413.
--- NOTE | 2018-10-14 19:14 | NUR ---
ATTEMPTED TO CALL REPORT TO FLOOR. NURSE IS BUSY AND WILL CALL BACK.
--- NOTE | 2018-10-14 19:45 | NUR ---
Report received from Jacqueline in ED. JYOTI PERDOMO admitted to room 413-1, with an admitting diagnosis of copd exacerbation, hypoxia, delirium, on 10/14/18 from ED via wheelchair, accompanied by staff. JYOTI PERDOMO introduced to surroundings, call light, bed controls, phone, TV, temperature control, lights, meal times, smoking policy, visitor policy, side rail policy, bathrooms and showers. Patient Rights given to patient in the handbook. JYOTI PERDOMO verbalizes understanding that [facility] is not responsible for the loss or damage to any personal effects or valuables that are kept in the patients possession during their hospitalization. JYOTI PERDOMO verbalizes understanding of Interdisciplinary Patient Education. Patient and/or family were informed about the Rapid Response Team and its purpose.
[2018-10-14 19:46] VITALS: BP 134/69
[2018-10-14] MEDS ORDERED: CATHETER FLUSH 10 ML SYR IV PRN (20:15)
[2018-10-14] MEDS ORDERED: ACETAMINOPHEN 500 MG TAB (TYLENOL) PO PRN (20:15)
[2018-10-14] MEDS ORDERED: ONDANSETRON 4 MG/2 ML (SDV) Z0FRAN IV PRN (20:15)
[2018-10-14] MEDS ORDERED: RT-ALBUTEROL SULF 2.5 MG/3 ML PRE-MIX VIAL ONE (22:00)
--- NOTE | 2018-10-14 22:03 | NUR ---
PT ASKING FOR SOMETHING TO HELP HIM SLEEP AT NIGHT. PT STATES HE TAKES VALIUM 5MG PO HS. SPOKE WITH DR. WATTERS AND TELEPHONE ORDERS RECEIVED FOR VALIUM 5MG PO HS.
[2018-10-14] MEDS: RT-BUDESONIDE NEBS 0.5 MG/2ML (PULMICORT) AMP INH SCH (22:04)
--- NOTE | 2018-10-14 22:31 | NUR ---
PT COMPLAINING OF TERRIBLE PAIN IN HIS LOWER LEGS AND ASKING FOR PAIN MEDICATION. AND ALSO ASKING IF WE CAN RESTART HIS MUCINEX HE TAKES AT HOME. SPOKE WITH DR. WATTERS AND TELEPHONE ORDERS RECEIVED FOR OXYCODONE 10MG TID PRN AND MUCINEX 1200MG BID. WILL CARRY OUT ORDERS AND CONTINUE TO MONITOR PT.
[2018-10-15] VITALS: BP 112/73
--- NOTE | 2018-10-15 | NUR ---
PT NOTICED SOME DRIED BLOOD COMING FROM IV SITE. THIS RN WENT TO CHECK PATENCY AND IV WENT BAD. WHEN I INFORMED PT THAT I WOULD HAVE TO PUT IN ANOTHER IV PT ASKED IF HE WAS GOING TO BE GETTING ANYTHING THROUGH HIS IV TONIGHT. I INFORMED PT THAT HE DID NOT HAVE ANYTHING IV ORDERED DURING HIS STAY OF RIGHT NOW. PT THEN REFUSED TO LET ME PUT IN ANOTHER IV STATING THAT THERE WASNT ANY POINT IF HE WASNT GETTING ANYTHING THROUGH THE IV. I EDUCATED PT THAT IF PTS CONDITION DECREASED THAT WE WOULD NEED AN IV SITE. PT STILL REFUSED STATING THERE IS NO POINT BC HES MORE THAN LIKELY LEAVING IN AM. PTS VITAL SIGNS STABLE. WILL CONTINUE TO MONITOR PT. WILL INFORM DR IN AM OF NO IV ACCESS.
[2018-10-15] MEDS: CATHETER FLUSH 10 ML SYR IV SCH ×4 (00:14→22:00)
[2018-10-15] MEDS: DIAZEPAM 5 MG (VALIUM) TABLET PO PRN ×2 (00:14→23:25)
[2018-10-15] MEDS: TAMSULOSIN 0.4 MG (FLOMAX) CAP PO SCH ×2 (00:14→20:08)
[2018-10-15] MEDS: GABAPENTIN 100 MG (NEURONTIN) CAP PO SCH ×2 (00:14→20:08)
[2018-10-15] MEDS: guaiFENesin (MUCINEX) 600 MG TAB PO SCH ×3 (00:14→20:08)
[2018-10-15] MEDS: oxyCODONE/APAP 10/325MG (PERCOCET 10) TABLET PO PRN ×2 (02:00→11:50)
[2018-10-15] MEDS: RT-ALBUTEROL SULF 2.5 MG/3 ML PRE-MIX VIAL INH SCH ×6 (02:08→21:46)
[2018-10-15 04:40] VITALS: BP 131/70
[2018-10-15 05:53] LABS: BASOPHILS % (AUTO) 0 % (0-10); EOSINOPHILS % (AUTO) 0 % (0-10); HEMATOCRIT 30 % (40-54); HEMOGLOBIN 9.5 G/DL (13.3-17.7); LYMPHOCYTES # (AUTO) 0.3 X 10^3 (1.0-4.0); LYMPHOCYTES % (AUTO) 4 % (12-44); MEAN CORPUSCULAR HEMOGLOBIN 35 PG (25-34); MEAN CORPUSCULAR HGB CONC 32 G/DL (32-36); MEAN CORPUSCULAR VOLUME 109 FL (80-99); MEAN PLATELET VOLUME 10.4 FL (7.4-10.4); MONOCYTES # (AUTO) 0.2 X 10^3 (0.0-1.0); MONOCYTES % (AUTO) 3 % (0-12); NEUTROPHILS % (AUTO) 93 % (42-75); PLATELET COUNT 155 10^3/uL (130-400); RED CELL DISTRIBUTION WIDTH 13.5 % (10.0-14.5); WHITE BLOOD COUNT 7.5 10^3/uL (4.3-11.0)
[2018-10-15 06:08] LABS: BUN/CREATININE RATIO 35; CALCIUM 9.7 MG/DL (8.5-10.1); CARBON DIOXIDE 22 MMOL/L (21-32); CHLORIDE 104 MMOL/L (98-107); CREATININE SERUM 1.04 MG/DL (0.60-1.30); GFR ESTIMATED > 60; GLUCOSE 161 MG/DL (70-105); POTASSIUM 4.3 MMOL/L (3.6-5.0); SODIUM 140 MMOL/L (135-145)
[2018-10-15] MEDS: predniSONE 20 MG TAB PO SCH (06:23)
[2018-10-15] MEDS: RT-BUDESONIDE NEBS 0.5 MG/2ML (PULMICORT) AMP INH SCH ×2 (06:37→18:57)
[2018-10-15 06:45] LABS: LYMPHOCYTES % (MANUAL) 3 %; MONOCYTES % (MANUAL) 3 %; NEUTROPHILS % (MANUAL) 94 %
[2018-10-15] MEDS: UMECLIDINIUM BROMIDE (INCRUSE ELLIPTA) 7'S IH SCH (08:00)
[2018-10-15 08:45] VITALS: BP 116/59
[2018-10-15] MEDS: FINASTERIDE (PROSCAR) 5 MG TAB PO SCH (09:47)
--- NOTE | 2018-10-15 09:58 | Diagnostic Imaging Report ---
INDICATION: Shortness of air, COPD exacerbation. TECHNIQUE: Two view chest at 8:24 AM. CORRELATION STUDY: 10/14/2018. FINDINGS: The heart size, mediastinal configuration, and pulmonary vasculature are within normal limits. Areas of infiltrate and/or atelectasis in the lung bases persist but overall are improved and partially cleared from the previous day. The remaining lung alberts demonstrate changes reflecting COPD. Cervical spinal fusion hardware is present. IMPRESSION: Partial clearing with some improvement in the areas of atelectasis and/or infiltrate at the lung bases, superimposed on changes reflecting COPD. Dictated by: Dictated on workstation # [id number]
[2018-10-15 12:13] VITALS: BP 135/60
[2018-10-15] MEDS ORDERED: DIAZ2TAB2 PO (13:04)
[2018-10-15] MEDS ORDERED: PANT40TA3 PO (13:04)
[2018-10-15] MEDS ORDERED: OXYC10TA7 PO (13:04)
[2018-10-15] MEDS ORDERED: PARO10TA3 PO (13:04)
[2018-10-15] MEDS ORDERED: TIOT4MIS2 INH (13:04)
[2018-10-15] MEDS ORDERED: GUAI120013 PO (13:04)
[2018-10-15] MEDS ORDERED: TAMS0.4C98 PO (13:04)
[2018-10-15] MEDS ORDERED: RT-ALBUINH IH (13:04)
[2018-10-15] MEDS ORDERED: CYCL10TA9 PO (13:06)
[2018-10-15] MEDS ORDERED: MELO15TA39 PO (13:06)
--- NOTE | 2018-10-15 13:06 | NUR ---
WENT OVER THE MEDICATION LIST VERBALLY WITH THE PATIENT. HE LISTED WHAT HE IS TAKING TO THE BEST OF HIS ABILITY. [facility] I FAXED A WRITTEN REQUEST FOR THOSE RECORDS AT 9AM THIS MORNING AND HAVE CALLED AND LEFT A VOICE MESSAGE AT 1300. WAITING FOR THOSE RECORDS TO FINALIZE THE MED REC.
--- NOTE | 2018-10-15 13:48 | NUR ---
Pt is [employer]. Conditioning Room Worker provided prayer and Communion.
--- NOTE | 2018-10-15 14:35 | History & Physical-Hospitalist ---
History of Present Illness HPI/Chief Complaint The patient is a 73-year-old white male known to me for many years. 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 He presented last night to the emergency room with complaints of increasing shortness of breath and hypoxia. He gave a rambling account of an adventure on last in which he got in his car and drove to the [facility]. He then left and experienced a dreamlike sort of situation where he found himself in several places which caused him to question his competency. He apparently pulled into a gas station on the [place] side of the line. This proved to be in old then abandoned building but he took the opportunity to relieve himself behind the building. He then apparently got as far north as [place]. He finally made his way home but parked his vehicle in the barn instead of at the house which she would normally have done. He finally called his son who came over and took the keys to his vehicles to avoid a further [place]. He continued to feel more short of breath through the weekend. Ultimately yesterday he called the ambulance and as he has been receiving health care in [place] since 2014 had hoped to go there. By protocol however he was brought here. His health took a bad turn in 2014 when he had complications after a cervical discectomy. He was ultimately diagnosed to have a vocal cord injury which has proved to be chronic he ultimately had a PEG tube placed and has used feeding by this route. He is a former smoker with a 10-yoxy-kegl history. He stopped smoking about 4 years ago. He uses oxygen during his sleeping hours. Date Seen 10/15/18 Time Seen by a Provider: 14:30 Attending Physician Dayo Watters MD PCP Ollie Pretty MD Referring Physician Date of Admission Oct 14, 2018 at 18:20 Home Medications & Allergies Home Medications Reviewed patient Home Medication Reconciliation performed by pharmacy medication reconciliations boiler service technician and/or nursing. Patients Allergies have been reviewed. Allergies Allergies Coded Allergies No Known Allergies (Unverified Allergy, Unknown, 01/19/17) Past Mjaamuj-Lsneaq-Dgodva Hx Past Med/Social Hx: Reviewed Nursing Past Med/Soc Hx Patient Social History Alcohol Use: Denies Use Alcohol Beverage of Choice: Wine Recreational Drug Use: No Smoking Status: Former Smoker Former Smoker, Quit: Jul 16, 2014 Type Used: Cigarettes 2nd Hand Smoke Exposure: No Recent Foreign Travel: No Contact w/other who traveled: No Recent Hopitalizations: No Recent Infectious Disease Expo: No Immunizations Up To Date Pediatric: Yes Date of Pneumonia Vaccine: Apr 15, 2018 Date of Influenza Vaccine: Apr 15, 2018 Seasonal Allergies Seasonal Allergies: No Past Medical History Surgeries: Eye Surgery Currently Using CPAP: No Currently Using BIPAP: No Genitourinary: Prostate Problems HEENT: Cataract, Dysphagia Hearing Impairment: Denies Did You Recieve Any Treatments: No History of Blood Disorders: Yes (MULTIPLE MYELOMA, MACROCYTIC ANEMIA) Family History FH: COPD (chronic obstructive pulmonary disease) 19 FATHER Kidney disease 19 MOTHER Review of Systems Constitutional: see HPI EENTM: see HPI Respiratory: short of breath, wheezing Cardiovascular: no symptoms reported Gastrointestinal: other (has a PEG tube and uses parenteral nutrition) Genitourinary: no symptoms reported Musculoskeletal: no symptoms reported Skin: no symptoms reported Psychiatric/Neurological: No Symptoms Reported Physical Exam Physical Exam Vital Signs Vital Signs - First Documented 10/14/18 10/14/18 10/14/18 10/14/18 15:29 16:25 19:26 22:10 Temp 98.7 Pulse 117 Resp 22 B/P (MAP) 125/76 (92) Pulse Ox 92 O2 Delivery Room Air O2 Flow Rate 2.00 FiO2 28 Capillary Refill : Less Than 3 Seconds Height, Weight, BMI Height: 5'5.00" Weight: 128lbs. 9.0oz. 58.107871nw; 21.4 BMI Method:Stated General Appearance: Mild Distress Eyes: Bilateral Eye Normal Inspection HEENT: Other Neck: Normal Inspection Respiratory: Decreased Breath Sounds (distant breath sounds with scattered rhonchi) Cardiovascular: Regular Rate, Rhythm, No Edema, No Gallop Gastrointestinal: Normal Bowel Sounds, No Organomegaly, No Pulsatile Mass, Non Tender, Soft Extremity: Normal Capillary Refill, Normal Inspection Neurologic/Psychiatric: Alert, Oriented x3, No Motor/Sensory Deficits, Normal Mood/Affect Skin: Normal Color Lymphatic: No Adenopathy Results Results/Procedures Labs Laboratory Tests 10/14/18 15:30 10/15/18 05:40 Patient resulted labs reviewed. Assessment/Plan Admission Diagnosis Hypoxia. 2.COPD. 3.postoperative vocal cord paralysis. 4.weight loss Admission Status: Inpatient Order (span 2 midnights) Reason for Inpatient Admission: Multiple respiratory problems requiring greater than 2 days Assessment and Plan Pulmonary toilet. Pulmonology consult Clinical Quality Measures DVT/VTE Risk/Contraindication: Risk Factor Score Per Nursin RFS Level Per Nursing on Admit: 4+=Very High DAYO WATTERS MD Oct 15, 2018 14:35
[2018-10-15] MEDS ORDERED: RT-ALBUTEROL SULF 2.5 MG/3 ML PRE-MIX VIAL IH PRN (14:45)
[2018-10-15] MEDS ORDERED: NON-FORMULARY MEDICATION 1 EA EA (Oxycodone HCl 10 MG) PO PRN (14:45)
--- NOTE | 2018-10-15 15:14 | Pulmonary Consultation ---
History of Present Illness History of Present Illness Date of Consultation 10/15/18 15:14 Date of Admission Allergies and Home Medications Allergies Coded Allergies: No Known Allergies (Unverified Allergy, Unknown, 01/19/17) Home Medications Albuterol Sulfate 1 Puff Puff, 2 PUFF IH Q4H PRN for SHORTNESS OF BREATH, ( Reported) Baclofen 20 Mg Tablet, 10 MG PO TID PRN for MUSCLE SPASMS, (Reported) Budesonide/Formoterol Fumarate 10.2 Gm Hfa.aer.ad, 2 PUFF IH DAILY, (Reported) Cyclobenzaprine HCl 10 Mg Tablet, 10 MG PO TID PRN for MUSCLE SPASMS, (Reported) Diazepam 2 Mg Tablet, 2-4 MG PO HS, (Reported) Finasteride 5 Mg Tablet, 5 MG PO 1600, (Reported) Guaifenesin 1,200 Mg Tab.er.12h, 1,200 MG PO BID, (Reported) Oxycodone HCl 10 Mg Tablet, 10 MG PO TID PRN for PAIN-SEVERE, (Reported) Pantoprazole Sodium 40 Mg Tablet.dr, 40 MG PO DAILY, (Reported) LAST FILLED #30 07-11-18 Paroxetine HCl 10 Mg Tablet, 10 MG PO DAILY, (Reported) LAST FILLED #30 08-13-18 Tamsulosin HCl 0.4 Mg Cap, 0.8 MG PO HS, (Reported) TAKES 2 (0.4MG) CAPSULES Tiotropium [place] 4 Gm Mist.inhal, 2 PUFF INH DAILY, (Reported) Trazodone HCl 50 Mg Tablet, 50 MG PO HS, (Reported) Past Viyiebw-Qckphe-Qovlzu Hx Past Med/Social Hx: Reviewed Nursing Past Med/Soc Hx Patient Social History Alcohol Use: Denies Use Alcohol Beverage of Choice: Wine Recreational Drug Use: No Smoking Status: Former Smoker Type Used: Cigarettes Former Smoker, Quit: Jul 16, 2014 2nd Hand Smoke Exposure: No Recent Foreign Travel: No Contact w/Someone Who Travel: No Recent Infectious Disease Expo: No Recent Hopitalizations: No Immunizations Up To Date PED Vaccines UTD: Yes Date of Pneumonia Vaccine: Apr 15, 2018 Date of Influenza Vaccine: Apr 15, 2018 Seasonal Allergies Seasonal Allergies: No Past Medical History Surgeries: Yes (CATARACT, EGD, COLONOSCOPY, PEG TUBE, HERNIA REPAIR, SPINAL SURGERY ON NECK) Eye Surgery Respiratory: Yes (EMPHYSEMA, COPD, WEARS OXYGEN AT HS) COPD Currently Using CPAP: No Currently Using BIPAP: No Cardiac: No Neurological: No Genitourinary: No Prostate Problems Gastrointestinal: Yes (CANNOT SWALLOW, PEG TUBE) Musculoskeletal: Yes (C3-[address]) Endocrine: No HEENT: Yes Cataract, Dysphagia Hearing Impairment: Denies Cancer: Yes (MULTIPLE MYELOMA) Did You Recieve Any Treatments: No Psychosocial: No Integumentary: No Blood Disorders: Yes (MULTIPLE MYELOMA, MACROCYTIC ANEMIA) Family Medical History FH: COPD (chronic obstructive pulmonary disease) 19 FATHER Kidney disease 19 MOTHER Sepsis Event Evaluation Height, Weight, BMI Height: 5'5.00" Weight: 128lbs. 9.0oz. 58.886481fr; 21.4 BMI Method:Stated Exam Exam Vital Signs Date Time Temp Pulse Resp B/P (MAP) Pulse Ox O2 Delivery O2 Flow Rate FiO2 10/15/18 12:13 98.0 78 16 135/60 (85) 94 Nasal Cannula 2.00 10/15/18 10:44 97 Nasal Cannula 2.00 10/15/18 08:45 97.8 84 18 116/59 (78) 95 Nasal Cannula 3.00 10/15/18 06:38 96 Nasal Cannula 2.00 10/15/18 04:40 97.8 77 20 131/70 (90) 95 Nasal Cannula 2.00 10/15/18 00:00 98.9 85 18 112/73 (86) 97 Nasal Cannula 2.00 10/14/18 22:10 92 28 10/14/18 22:07 92 Nasal Cannula 2.00 10/14/18 20:00 Nasal Cannula 2.00 10/14/18 19:46 98.6 90 21 134/69 90 Room Air 10/14/18 19:26 97.2 71 20 125/76 (92) 95 Nasal Cannula 2.00 10/14/18 16:25 92 Room Air 10/14/18 15:29 98.7 117 22 125/76 (92) Room Air I & O 10/15/18 07:00 Intake Total 1090 ml Balance 1090 ml Height & Weight Height: 5'5.00" Weight: 128lbs. 9.0oz. 58.241465by; 21.4 BMI Method:Stated General Appearance: Mild Distress HEENT: Other Neck: Normal Inspection Respiratory: Decreased Breath Sounds (distant breath sounds with scattered rhonchi) Cardiovascular: Regular Rate, Rhythm, No Edema, No Gallop Capillary Refill: Less Than 3 Seconds Gastrointestinal: normal bowel sounds, non tender, soft Extremity: Normal Capillary Refill, Normal Inspection Neurologic/Psychiatric: Alert, Oriented x3, No Motor/Sensory Deficits, Normal Mood/Affect Skin: Normal Color Lymphatic: No Adenopathy Results Lab Laboratory Tests 10/14/18 15:30 10/15/18 05:40 TERE OGMEZ DO Oct 15, 2018 15:14
[2018-10-15 16:21] VITALS: BP 129/62
[2018-10-15] MEDS ORDERED: TRAZ-189 PO (16:28)
--- NOTE | 2018-10-15 16:30 | NUR ---
[facility] 09-30-18 TAMSULOSIN 0.4MG 2 DAILY #180 09-16-18 OXYCODONE 10MG TID PRN #42 09-11-18 BACLOFEN 20MG 1/2 TID PRN #90 08-29-18 FINASTERIDE 5MG DAILY #90 08-16-18 CYCLOBENZAPRINE 10MG TID PRN #90 07-24-18 TRAZODONE 50MG HS #90 06-03-18 PRO AIR #2 06-02-18 PANTOPRAZOLE 20MG DAILY #90 (ALSO FILLED A RETAIL RX 07-11-18 #30 OF 40MG) 03-21-18 SPIRIVA 2.5 DAILY (MAYBE FILLED IN JUNE AT RETAIL LOCATION ON THE EXT MED HX) 03-20-18 SYMBICORT 160-4.5 2 PUFFS BID (STATES HE ONLY DOES 2 PUFFS IN AM ONLY) 06-19-17 GABAPENTIN 100MG DAILY #90 (HAS NOT BEEN TAKING RECENTLY DUE TO UNSURE IF IT WAS A DUPLICATE THERAPY WITH HIS BACLOFEN, FLEXERIL, AND MELOXICAM. IT IS SIGNIFICANTLY PAST DUE FOR REFILL SO I REMOVED THE GABAPENTIN FROM THE MED REC AT THIS TIME. I ALSO DID NOT INCLUDE THE MELOXICAM HE REPORTED BECAUSE I DO NOT SHOW FILL FOR THAT AND HE IS UNABLE TO TELL ME THE DOSE.) HE IS ALSO TAKING MUCINEX 1200MG BID. HE GETS DIAZEPAM FILLED AT [facility]. HE FILLED PAXIL WELL AT [facility] BUT IT IS PAST DUE FOR REFILL, I NOTED THE PAST DUE FILL DATE ON THE MED REC
[2018-10-15 19:47] VITALS: BP 132/60
[2018-10-16] VITALS: BP 113/56
[2018-10-16] MEDS: RT-ALBUTEROL SULF 2.5 MG/3 ML PRE-MIX VIAL INH SCH ×6 (02:03→22:55)
[2018-10-16 04:00] VITALS: BP 120/58
[2018-10-16] MEDS: CATHETER FLUSH 10 ML SYR IV SCH ×4 (06:41→21:05)
[2018-10-16] MEDS: predniSONE 20 MG TAB PO SCH (06:41)
[2018-10-16 08:12] VITALS: BP 141/67
--- NOTE | 2018-10-16 08:46 | Progress Note-Hospitalist ---
Subjective HPI/CC On Admission Date Seen by Provider: Oct 16, 2018 Time Seen by Provider: 08:45 The patient is a 73-year-old white male known to me for many years. 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 He presented last night to the emergency room with complaints of increasing shortness of breath and hypoxia. He gave a rambling account of an adventure on last in which he got in his car and drove to the [facility]. He then left and experienced a dreamlike sort of situation where he found himself in several places which caused him to question his competency. He apparently pulled into a gas station on the [place] side of the line. This proved to be in old then abandoned building but he took the opportunity to relieve himself behind the building. He then apparently got as far [place] as [place]. He finally made his way home but parked his vehicle in the barn instead of at the house which she would normally have done. He finally called his son who came over and took the keys to his vehicles to avoid a further [place]. He continued to feel more short of breath through the weekend. Ultimately yesterday he called the ambulance and as he has been receiving health care in [place] since 2014 had hoped to go there. By protocol however he was brought here. His health took a bad turn in 2014 when he had complications after a cervical discectomy. He was ultimately diagnosed to have a vocal cord injury which has proved to be chronic he ultimately had a PEG tube placed and has used feeding by this route. He is a former smoker with a 25-illj-wavs history. He stopped smoking about 4 years ago. He uses oxygen during his sleeping hours. Subjective/Events-last exam Pt doing much better. Confusion improved. Will order PT and OT. Not eating too much since he just started eating by mouth but he still does need nutrition through his peg tube due to cervical spine surgery complications he had been aphasic and had dysphagia since 2014 and I obtained his nutrition requirements at home and have a dietary consult to restart those now. I did restart most of his home medication. I did review Dr. Rodriguez consultation. Pt takes a stool softener and he did take that today. Overall feels much better and confusion is improved and Pt is tolerating medical treatment and improving. Review of Systems Neurological: Confusion Objective Exam Vital Signs Vital Signs Date Time Temp Pulse Resp B/P (MAP) Pulse Ox O2 Delivery O2 Flow Rate FiO2 10/16/18 16:30 98.4 85 20 142/66 (91) 98 Nasal Cannula 2.00 10/14/18 22:10 28 Capillary Refill : Less Than 3 Seconds General Appearance: No Apparent Distress, WD/WN, Chronically ill, Thin HEENT: Other Neck: Full Range of Motion, Normal Inspection Respiratory: No Accessory Muscle Use, No Respiratory Distress, Decreased Breath Sounds, Wheezing Cardiovascular: Regular Rate, Rhythm, No Edema, No Gallop, No JVD, No Murmur, Normal Peripheral Pulses Gastrointestinal: Normal Bowel Sounds, No Organomegaly, No Pulsatile Mass, Non Tender, Soft Extremity: Normal Capillary Refill, Normal Inspection Neurologic/Psychiatric: Alert, Oriented x3, No Motor/Sensory Deficits, Normal Mood/Affect Skin: Normal Color Lymphatic: No Adenopathy Results/Procedures Lab Patient resulted labs reviewed. Assessment/Plan Assessment and Plan Assess & Plan/Chief Complaint Assessment: Delirium AECOPD Dysphagia PEG tube ARF Cervical spine surgery with complications h/o CVA Plan: Tube feedings Home meds Nebs Dr Rodriguez consultation Delirium resolved Diagnosis/Problems Diagnosis/Problems (1) COPD exacerbation Status: Acute (2) Delirium due to another medical condition Status: Acute (3) PEG (percutaneous endoscopic gastrostomy) status Status: Chronic (4) Dysphagia Status: Chronic Qualifiers: Dysphagia type: other dysphagia Qualified Codes: R13.19 - Other dysphagia (5) Cervical spine disease Status: Chronic (6) Hypoxia Status: Acute Clinical Quality Measures DVT/VTE Risk/Contraindication: Risk Factor Score Per Nursin RFS Level Per Nursing on Admit: 4+=Very High CODIE BREWER DO Oct 16, 2018 08:46
[2018-10-16] MEDS ORDERED: PANTOPRAZOLE 40 MG (PROTONIX) TAB PO SCH (09:00)
--- NOTE | 2018-10-16 09:11 | Pulmonary Consultation ---
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 SOB started 4 days ago with nonproductive cough. No fever/chills. 6mo ago speech therapy approved a soft diet. He usually uses peg tube for feeds. Pt has also been more confused with hallucinations. PT has refused assisted living. Allergies and Home Medications Allergies Coded Allergies: No Known Allergies (Unverified Allergy, Unknown, 01/19/17) Home Medications Albuterol Sulfate 1 Puff Puff, 2 PUFF IH Q4H PRN for SHORTNESS OF BREATH, ( Reported) Baclofen 20 Mg Tablet, 10 MG PO TID PRN for MUSCLE SPASMS, (Reported) Budesonide/Formoterol Fumarate 10.2 Gm Hfa.aer.ad, 2 PUFF IH DAILY, (Reported) Cyclobenzaprine HCl 10 Mg Tablet, 10 MG PO TID PRN for MUSCLE SPASMS, (Reported) Diazepam 2 Mg Tablet, 2-4 MG PO HS, (Reported) Finasteride 5 Mg Tablet, 5 MG PO 1600, (Reported) Guaifenesin 1,200 Mg Tab.er.12h, 1,200 MG PO BID, (Reported) Oxycodone HCl 10 Mg Tablet, 10 MG PO TID PRN for PAIN-SEVERE, (Reported) Pantoprazole Sodium 40 Mg Tablet.dr, 40 MG PO DAILY, (Reported) LAST FILLED #30 07-11-18 Paroxetine HCl 10 Mg Tablet, 10 MG PO DAILY, (Reported) LAST FILLED #30 08-13-18 Tamsulosin HCl 0.4 Mg Cap, 0.8 MG PO HS, (Reported) TAKES 2 (0.4MG) CAPSULES Tiotropium [place] 4 Gm Mist.inhal, 2 PUFF INH DAILY, (Reported) Trazodone HCl 50 Mg Tablet, 50 MG PO HS, (Reported) Past Quglupx-Iarley-Irsgzy Hx Past Med/Social Hx: Reviewed Nursing Past Med/Soc Hx Patient Social History Alcohol Use: Denies Use Alcohol Beverage of Choice: Wine Recreational Drug Use: No Smoking Status: Former Smoker Type Used: Cigarettes Former Smoker, Quit: Jul 16, 2014 2nd Hand Smoke Exposure: No Recent Foreign Travel: No Contact w/Someone Who Travel: No Recent Infectious Disease Expo: No Recent Hopitalizations: No Immunizations Up To Date PED Vaccines UTD: Yes Date of Pneumonia Vaccine: Apr 15, 2018 Date of Influenza Vaccine: Apr 15, 2018 Seasonal Allergies Seasonal Allergies: No Past Medical History Surgeries: Yes (CATARACT, EGD, COLONOSCOPY, PEG TUBE, HERNIA REPAIR, SPINAL SURGERY ON NECK) Eye Surgery Respiratory: Yes (EMPHYSEMA, COPD, WEARS OXYGEN AT HS) COPD Currently Using CPAP: No Currently Using BIPAP: No Cardiac: No Neurological: No Genitourinary: No Prostate Problems Gastrointestinal: Yes (CANNOT SWALLOW, PEG TUBE) Musculoskeletal: Yes (C3-[address]) Endocrine: No HEENT: Yes Cataract, Dysphagia Hearing Impairment: Denies Cancer: Yes (MULTIPLE MYELOMA) Did You Recieve Any Treatments: No Psychosocial: No Integumentary: No Blood Disorders: Yes (MULTIPLE MYELOMA, MACROCYTIC ANEMIA) Family Medical History FH: COPD (chronic obstructive pulmonary disease) 19 FATHER Kidney disease 19 MOTHER Review of Systems Time Seen by Provider: 09:12 Constitutional: Weakness, Malaise; No: Fever, Chills, Sweats, Other Eyes: No: Pain, Vision change, Conjunctivae inflammation, Eyelid inflammation, Other, Redness ENT: Nose congestion; No: Ear pain, Ear discharge, Nose pain, Nose discharge, Mouth pain, Mouth swelling, Throat pain, Throat swelling, Other Respiratory: Cough, Dry, Shortness of breath, SOB with excertion; No: Wheezing , Hemoptysis, Pleuritic Pain, Sputum Cardiovascular: Paroxysmal Noc. Dyspnea; No: Chest Pain, Palpitations, Orthopnea, Edema, Lt Headedness, Other Gastrointestinal: No: Nausea, Vomiting, Abdominal Pain, Diarrhea, Constipation , Melena, Hematochezia, Other Genitourinary: No Dysuria, No Frequency, No Incontinence, No Hematuria, No Retention, No Other Neurological: Weakness, Incoordination, Confusion Sepsis Event Evaluation Height, Weight, BMI Height: 5'5.00" Weight: 128lbs. 9.0oz. 58.695473yv; 21.4 BMI Method:Stated Exam Exam Vital Signs Date Time Temp Pulse Resp B/P (MAP) Pulse Ox O2 Delivery O2 Flow Rate FiO2 10/16/18 08:12 98.0 75 20 141/67 (91) 99 Nasal Cannula 2.00 10/16/18 06:38 91 Room Air 10/16/18 04:00 98.6 74 20 120/58 (78) 97 Nasal Cannula 2.00 10/16/18 02:03 96 Nasal Cannula 2.00 10/16/18 00:00 97.4 94 20 113/56 (75) 95 Nasal Cannula 2.00 10/15/18 21:46 95 Nasal Cannula 2.00 10/15/18 20:00 Nasal Cannula 2.00 10/15/18 19:47 98.3 92 20 132/60 (84) 93 Nasal Cannula 2.00 10/15/18 19:05 Nasal Cannula 2.00 10/15/18 18:57 92 Nasal Cannula 2.00 10/15/18 16:21 98.0 82 18 129/62 (84) 96 Nasal Cannula 2.00 10/15/18 12:13 98.0 78 16 135/60 (85) 94 Nasal Cannula 2.00 10/15/18 10:44 97 Nasal Cannula 2.00 I & O 10/16/18 06:59 Intake Total 1408 ml Balance 1408 ml Height & Weight Height: 5'5.00" Weight: 128lbs. 9.0oz. 58.962095me; 21.4 BMI Method:Stated General Appearance: Mild Distress HEENT: Other Neck: Normal Inspection Respiratory: Decreased Breath Sounds (distant breath sounds with scattered rhonchi) Cardiovascular: Regular Rate, Rhythm, No Edema, No Gallop Capillary Refill: Less Than 3 Seconds Gastrointestinal: normal bowel sounds, non tender, soft Extremity: Normal Capillary Refill, Normal Inspection Neurologic/Psychiatric: Alert, Oriented x3, No Motor/Sensory Deficits, Normal Mood/Affect Skin: Normal Color Lymphatic: No Adenopathy Results Lab Laboratory Tests 10/14/18 15:30 10/15/18 05:40 Assessment/Plan Assessment/Plan COPDAE with hypoxia -SVNS -Oxygen Postoperaative vocal cord paralysis wt loss TERE GOMEZ DO Oct 16, 2018 09:11
[2018-10-16] MEDS: RT-BUDESONIDE NEBS 0.5 MG/2ML (PULMICORT) AMP INH SCH (10:02)
[2018-10-16] MEDS: UMECLIDINIUM BROMIDE (INCRUSE ELLIPTA) 7'S IH SCH (10:03)
[2018-10-16] MEDS: guaiFENesin (MUCINEX) 600 MG TAB PO SCH ×2 (10:11→20:31)
[2018-10-16] MEDS: PARoxetine 10 MG (PAXIL) TAB PO SCH (10:11)
[2018-10-16] MEDS: FINASTERIDE (PROSCAR) 5 MG TAB PO SCH (10:14)
[2018-10-16] MEDS ORDERED: BACLOFEN 10 MG PO PRN (10:45)
[2018-10-16] MEDS ORDERED: CYCLOBENZAPRINE 10 MG (FLEXERIL) TAB PO PRN (10:45)
--- NOTE | 2018-10-16 12:57 | Physical Therapy Evaluation ---
PT Evaluation-General Medical Diagnosis Admission Date Oct 14, 2018 at 18:20 Medical Diagnosis: weakness Onset Date: Oct 14, 2018 Therapy Diagnosis Therapy Diagnosis: impaired mobility, strength, endurance, balance Height/Weight Height (Feet): 5 Height (Inches): 5.00 Weight (Pounds): 128 Weight (Ounces): 9.0 Precautions Precautions/Isolations: Standard Precautions Referral Physician: Eun Johnson DO Reason for Referral: Evaluation/Treatment Medical History Additional Medical History Past Medical History Surgeries: Yes (CATARACT, EGD, COLONOSCOPY, PEG TUBE, HERNIA REPAIR, SPINAL SURGERY ON NECK) Eye Surgery Respiratory: Yes (EMPHYSEMA, COPD, WEARS OXYGEN AT HS) COPD Currently Using CPAP: No Currently Using BIPAP: No Cardiac: No Neurological: No Genitourinary: No Prostate Problems Gastrointestinal: Yes (CANNOT SWALLOW, PEG TUBE) Musculoskeletal: Yes (C3-[address]) Endocrine: No HEENT: Yes Cataract, Dysphagia Hearing Impairment: Denies Cancer: Yes (MULTIPLE MYELOMA) Did You Recieve Any Treatments: No Psychosocial: No Integumentary: No Blood Disorders: Yes (MULTIPLE MYELOMA, MACROCYTIC ANEMIA) Current History to ER with sepsis and hypoxia Social History Home: Multilevel Current Living Status: Alone Entry Into Home: Stairs With Railing PT Steps Into Home: 2 Patient has a lift chair at home that takes him up his stairs. Prior/Core FIM Prior Level of Function Therapy Code Descriptions/Definitions Functional [place] Measure: 0=Not Assessed/NA 4=Minimal Assistance 1=Total Assistance 5=Supervision or Setup 2=Maximal Assistance 6=Modified [place] 3=Moderate Assistance 7=Complete [place] Therapy Quality Codes: 6 Independent with activity with or without an assistive device 5 Patient requires set up or clean up by helper. Patient completes activity by themselves 4 Supervision or touching assist (CGA). [place] provide cues , steadying assist 3 The helper provides less than half the effort to complete the activity 2 The helper provides more than half the effort to complete the activity 1 Dependent. The helper does all the effort to complete an activity 7 Patient refused to complete or attempt activity 9 The patient did not perform the activity before the current illness or injury 88 Not attempted due to Medical conditions or safety concerns Functional Abilities and Goals: Independent: Patient completed the activities by him/herself, with or without an assistive device, with no assistance from a helper. Needed Some Help: Patient needed partial assistance from another person to complete activities. Dependent: A helper completed the activities for the patient. Unknown: Not Applicable: Bed Mobility: 7 Transfers (B,C,W/C) (FIM): 7 Gait: 7 Stairs: 6 Indoor Mobility (Ambulation): Independent Stairs: Independent PT Evaluation-Current Subjective Patient in bathroom pre tx, agrees to PT, has no complaints of pain. Pt/Family Goals "to be independent at home" Objective Patient Orientation: Person, Place, Situation Attachments: Oxygen 2L of O2 nasal canula ROM/Strength ROM Lower Extremities WNL Strength Lower Extremities right lower extremity (hip flexion 4/5, knee flexion 3+/5, knee extension 4+/5, dorsiflexion 2/5), left lower extremity (hip flexion 4/5, knee flexion 3+/5, knee extension 4+/5, dorsiflexion 4/5) Neuromuscular (Tone, Coordination, Reflexes) Patient states he has been having double vision and other visual impairments. He seems to have intact peripheral vision and good tracking. No facial asymmetries. No complaints of numbness or tingling in face. Sensory Hearing: Functional Sensation Right Lower Extremit: Intact Sensation Left Lower Extremity: Impaired Sensation Lower Extremities Patient states he has numbness on the bottom of his left foot. Transfers Therapy Code Descriptions/Definitions Functional [place] Measure: 0=Not Assessed/NA 4=Minimal Assistance 1=Total Assistance 5=Supervision or Setup 2=Maximal Assistance 6=Modified [place] 3=Moderate Assistance 7=Complete [place] Transfers (B, C, W/C) (FIM): 6 Scootin Rollin Supine to/from Sit: 6 Sit to/from Stand: 6 bed t/f WC(FIM only if WC use): 6 Patient has steady sit to stand and transfers. He states that he does feel weak and unsteady but mostly with ambulation. Gait Mode of Locomotion: Walk Anticipated Mode of Locomotion: Walk Gait (FIM): 5 Distance: 150'x2 Gait Level of Assist: 5 Gait Persons Needed: 1 Gait Assistive Device: FWW Comments/Gait Description Patient has brisk ambulation and is a little unsteady but had no LOB. He does get SOB with ambulation and needs cues for purse lip breathing. Balance Sitting Static: Normal Sitting Dynamic: Normal Standing Static: Fair Standing Dynamic: Fair Treatment seated LE ex x10 (AP, LAQ) Assessment/Needs Patient has impaired mobility, strength, endurance, balance. He has steady transfers and is up in his room without difficulty. Rehab Potential: Fair PT Short Term Goals Short Term Goals Time Frame: Oct 23, 2018 Transfers (B,C,W/C) (FIM): 7 Gait (FIM): 6 Gait Distance Comment: 200' Gait Level of Assist: 6 Gait Assistive Device: FWW PT Plan Problem List Problem List: Activity Tolerance, Functional Strength, Safety, Balance, Gait, Transfer Treatment/Plan Treatment Plan: Continue Plan of Care Treatment Plan: Bed Mobility, Education, Functional Activity Susie, Functional Strength, Gait, Safety, Therapeutic Exercise, Transfers Treatment Duration: Oct 23, 2018 Frequency: 6 times per week Estimated Hrs Per Day: .25 hour per day (15-30') Patient and/or Family Agrees t: Yes Safety Risks/Education Patient Education: Gait Training, Transfer Techniques, Correct Positioning, Safety Issues Teaching Recipient: Patient Teaching Methods: Demonstration, Discussion Response to Teaching: Reinforcement Needed Discharge Recommendations Plan Patient will perform bed mobility and transfer training, balance and endurance training, functional strengthening, stair training, gait training, and education , to improve functional mobility and independence at home. Therapy D/C Recommendations: Home w/ Family Support Time/GCodes Time In: 1125 Time Out: 1150 Total Billed Treatment Time: 25 Total Billed Treatment 1 visit NAHID 15' GT 10' MIKE PRYOR PT Oct 16, 2018 12:57
--- NOTE | 2018-10-16 14:14 | Occupational Therapy Eval ---
OT Evaluation-General/PLF Medical Diagnosis Admission Date Oct 14, 2018 at 18:20 Medical Diagnosis: Hypoxia Onset Date: Oct 14, 2018 Therapy Diagnosis Therapy Diagnosis: Weakness Height/Weight Height (Feet): 5 Height (Inches): 5.00 Weight (Pounds): 128 Weight (Ounces): 9.0 Precautions Precautions/Isolations: Standard Precautions Weight Bear Status Weight Bearing Restriction: Weight Bearing/Tolerated Referral Physician: Eun Johnson DO Referral Reason: Activity Tolerance, Self Care, Evaluation/Treatment, Strengthening/ROM Medical History Pertinent Medical History: COPD Additional Medical History PEG tube, oxygen at night, eye surgery, multiple myeloma Social History Home: Multilevel Current Living Status: Alone Entry Into Home: Stairs With Railing Steps Into Home: 2 ADL-Prior Level of Function Therapy Code Descriptions/Definitions Functional [place] Measure: 0=Not Assessed/NA 4=Minimal Assistance 1=Total Assistance 5=Supervision or Setup 2=Maximal Assistance 6=Modified [place] 3=Moderate Assistance 7=Complete [place] Therapy Quality Codes: 6 Independent with activity with or without an assistive device 5 Patient requires set up or clean up by helper. Patient completes activity by themselves 4 Supervision or touching assist (CGA). [place] provide cues , steadying assist 3 The helper provides less than half the effort to complete the activity 2 The helper provides more than half the effort to complete the activity 1 Dependent. The helper does all the effort to complete an activity 7 Patient refused to complete or attempt activity 9 The patient did not perform the activity before the current illness or injury 88 Not attempted due to Medical conditions or safety concerns Functional Abilities and Goals: Independent: Patient completed the activities by him/herself, with or without an assistive device, with no assistance from a helper. Needed Some Help: Patient needed partial assistance from another person to complete activities. Dependent: A helper completed the activities for the patient. Unknown: Not Applicable: ADL PLOF Comments Pt. states that he was independent with all daily tasks, but has started having difficulty at home. Pt. is on permanent PEG tube but completes feedings on his own. Pt. states that he has had a complicated medical history, and now has some vocal cord paralysis. Pt. also recounts an incident in which he became confused and drove around. After contacting his family, he did come to ER. Self Care: Independent Functional Cognition: Unknown DME/Equipment: Bath Chair, Tub/Shower DME/Equipment Comments Pt. has a walker but does not use it. 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 Appearance Pt. in bed. OT and pt. have long discussion regarding pt's current situation. Pt. is able to transfer with SBA/Mod I, but states that his balance at time is not "great." States that he was receiving outpt. PT for this. Pt. states that he has been able to bathe/dress self with no difficulty, but does know that he is currently not as strong as he was. Pt. is asked what his main concerns for home are. [place], but that his son has to be gone some. States that his son worries about him, and that due to his recent confusion, he is concerned as well. OT talks about possible strategies with him, such as a support system of people to check on him, someone to assist with meals, etc....Pt. does report that he has a few people that he knows, but no one that can really assist or be there. Will continue to talk with pt. regarding home safety, and possible resources to assist as he ages, if home is indeed his goal. Will also issue pt. theraband and therapy sponge for increased overall strengthening. All needs met in room. Mental Status/Objective Attachments: IV Current Glasses/Contacts: Yes Upper Extremity ROM WFL Upper Extremity Strength 3+/5 bilateral overall ADL-Treatment Therapy Code Descriptions/Definitions Functional [place] Measure: 0=Not Assessed/NA 4=Minimal Assistance 1=Total Assistance 5=Supervision or Setup 2=Maximal Assistance 6=Modified [place] 3=Moderate Assistance 7=Complete [place] Therapy Quality Codes: 6 Independent with activity with or without an assistive device 5 Patient requires set up or clean up by helper. Patient completes activity by themselves 4 Supervision or touching assist (CGA). [place] provide cues , steadying assist 3 The helper provides less than half the effort to complete the activity 2 The helper provides more than half the effort to complete the activity 1 Dependent. The helper does all the effort to complete an activity 7 Patient refused to complete or attempt activity 9 The patient did not perform the activity before the current illness or injury 88 Not attempted due to Medical conditions or safety concerns Lower Body Dressing (FIM): 6 (per pt.) Transfers (B, C, W/C) (FIM): 5 Education OT Patient Education: Correct positioning, Exercise program, Progress toward Goal/Update tx plan, Purpose of tx/functional activities, Reviewed precautions, Rehab process, Transfer techniques Teaching Recipient: Patient Teaching Methods: Demonstration, Discussion Response to Teaching: Verbalize Understanding, Return Demonstration OT Short Term Goals Short Term Goals Transfers (B,C,W/C) (FIM): 7 1=Demonstrate adherence to instructed precautions during ADL tasks. 2=Patient will verbalize/demonstrate understanding of assistive devices/ modifications for ADL. 3=Patient will improve strength/tolerance for activity to enable patient to perform ADL's. OT Timekeeping Supervisor Goals Timekeeping Supervisor Goals Time Frame: Oct 23, 2018 Pt. will demonstrate full independence with daily ADLs, and will demonstrate ability to complete safe and functional transfers with no loss of balance. Pt. and OT will also explore safety resources for safe return home. Additional Goals: 1-Demonstrate ADL Tasks, 2-Verbalize Understanding, 3- ImproveStrength/Susie 1=Demonstrate adherence to instructed precautions during ADL tasks. 2=Patient will verbalize/demonstrate understanding of assistive devices/ modifications for ADL. 3=Patient will improve strength/tolerance for activity to enable patient to perform ADL's. OT Education/Plan Problem List/Assessment Assessment: Decreased Activ Tolerance, Impaired I ADL's Discharge Recommendations Plan/Recommendations: Continue POC Therapy D/C Recommendations: Home w/ Family Support, Scheduled Assistance Treatment Plan/Plan of Care Treatment,Training & Education: Yes Patient would benefit from OT for education, treatment and training to promote independence in ADL's, mobility, safety and/or upper extremity function for ADL' s. Plan of Care: ADL Retraining, Functional Mobility, UE Funct Exercise/Act Treatment Duration: Oct 23, 2018 Frequency: 5 times per week Estimated Hrs Per Day: .5 hour per day Agreement: Yes Rehab Potential: Good Time/GCodes Start Time: 12:15 Stop Time: 12:45 Total Time Billed (hr/min): 30 Billed Treatment Time 1, EVL x 15minutes, Ex x 15minutes TAHMINA BARRIENTOS OT Oct 16, 2018 14:14
--- NOTE | 2018-10-16 15:45 | NUR ---
provided prayer and Communion.
[2018-10-16] MEDS ORDERED: FINASTERIDE (PROSCAR) 5 MG TAB PO SCH (16:00)
[2018-10-16 16:30] VITALS: BP 142/66
[2018-10-16] MEDS ORDERED: RT-BUDESONIDE NEBS 0.5 MG/2ML (PULMICORT) AMP ONE (18:23)
[2018-10-16] MEDS: GABAPENTIN 100 MG (NEURONTIN) CAP PO SCH (20:30)
[2018-10-16] MEDS ORDERED: DIAZEPAM 2 MG (VALIUM) TAB PO SCH (21:00)
[2018-10-16] MEDS ORDERED: traZODone 50 MG (DESYREL) TAB PO SCH (21:00)
[2018-10-16] MEDS ORDERED: TAMSULOSIN 0.4 MG (FLOMAX) CAP PO SCH (21:00)
[2018-10-16] MEDS ORDERED: NON-FORMULARY MEDICATION 1 EA EA (Guaifenesin (Mucinex) 1,200 MG) PO SCH (21:00)
[2018-10-17 00:29] VITALS: BP 123/60
[2018-10-17] MEDS: RT-ALBUTEROL SULF 2.5 MG/3 ML PRE-MIX VIAL INH SCH ×6 (02:55→19:04)
[2018-10-17] MEDS: CATHETER FLUSH 10 ML SYR IV SCH ×2 (04:27→15:12)
[2018-10-17] MEDS ORDERED: PANTOPRAZOLE 40 MG (PROTONIX) TAB PO SCH (06:00)
[2018-10-17] MEDS: predniSONE 20 MG TAB PO SCH (06:22)
--- NOTE | 2018-10-17 06:36 | NUR ---
0630-this rn discussed with pt about started his tube feedings-pt stated that he usually starts them at 0800 then roughly every 4hrs after that until he goes to bed, pt would prefer to keep his home schedule
[2018-10-17] MEDS: UMECLIDINIUM BROMIDE (INCRUSE ELLIPTA) 7'S IH SCH (07:10)
[2018-10-17 08:00] VITALS: BP 135/67
[2018-10-17] MEDS ORDERED: RT-ADVAIR HFA 115/21 MCG PER PUFF IH SCH (08:00)
[2018-10-17] MEDS: guaiFENesin (MUCINEX) 600 MG TAB PO SCH (08:43)
[2018-10-17] MEDS: FINASTERIDE (PROSCAR) 5 MG TAB PO SCH (08:44)
[2018-10-17] MEDS: PARoxetine 10 MG (PAXIL) TAB PO SCH (08:44)
[2018-10-17] MEDS ORDERED: NON-FORMULARY MEDICATION 1 EA EA (Budesonide/Formoterol Fumarate (Symbicort 160-4.5 Mcg In IH SCH (09:00)
[2018-10-17] MEDS ORDERED: NON-FORMULARY MEDICATION 1 EA EA (Tiotropium Bromide (Spiriva Respimat 2.5MCG/ACTUATION) 2 INH SCH (09:00)
--- NOTE | 2018-10-17 09:20 | Pulmonary Progress Note ---
Subjective Time Seen by a Provider: 09:23 Subjective/Events-last exam PT appears to be doing better. No complications noted. Sepsis Event Evaluation Height, Weight, BMI Height: 5'5.00" Weight: 128lbs. 9.0oz. 58.665953lc; 21.4 BMI Method:Stated Exam Exam Vital Signs Date Time Temp Pulse Resp B/P (MAP) Pulse Ox O2 Delivery O2 Flow Rate FiO2 10/17/18 07:15 97 Nasal Cannula 1.00 10/17/18 02:55 96 Nasal Cannula 2.00 10/17/18 00:29 97.2 72 20 123/60 (81) 96 Nasal Cannula 2.00 10/16/18 22:55 97 Nasal Cannula 2.00 10/16/18 20:00 Nasal Cannula 2.00 10/16/18 18:58 96 Nasal Cannula 2.00 10/16/18 16:30 98.4 85 20 142/66 (91) 98 Nasal Cannula 2.00 10/16/18 10:05 93 Nasal Cannula 2.00 10/16/18 10:03 93 Nasal Cannula 2.00 I & O 10/17/18 07:00 Intake Total 1980 ml Output Total 2 ml Balance 1978 ml Height & Weight Height: 5'5.00" Weight: 128lbs. 9.0oz. 58.173283tu; 21.4 BMI Method:Stated General Appearance: No Apparent Distress, WD/WN, Chronically ill, Thin HEENT: Other Neck: Full Range of Motion, Normal Inspection Respiratory: No Accessory Muscle Use, No Respiratory Distress, Decreased Breath Sounds, Wheezing Cardiovascular: Regular Rate, Rhythm, No Edema, No Gallop, No JVD, No Murmur, Normal Peripheral Pulses Capillary Refill: Less Than 3 Seconds Gastrointestinal: normal bowel sounds, non tender, soft Extremity: Normal Capillary Refill, Normal Inspection Neurologic/Psychiatric: Alert, Oriented x3, No Motor/Sensory Deficits, Normal Mood/Affect Skin: Normal Color Lymphatic: No Adenopathy Assessment/Plan Assessment/Plan Acute on chronic respiratory failure COPDAE with hypoxia -SVNS, Advair -Oxygen -Pt usually sees [facility] doctors including pulmonology. He appears to be upset EMS brought him here vs [place]. Atelectasis - doubt PNA (no leukocytosis, No fever) -Monitor -Increase activity Macrocytic anemia -Check B12/Folate, TSH -monitor repeat labs today Post operative vocal cord paralysis Malnutrition/debility -TF per PEG tube wt loss Pt is ok from pulmonary standpoint for discharge. TERE GOMEZ DO Oct 17, 2018 09:20
[2018-10-17 10:14] LABS: BASOPHILS % (AUTO) 0 % (0-10); EOSINOPHILS % (AUTO) 0 % (0-10); HEMATOCRIT 34 % (40-54); HEMOGLOBIN 10.9 G/DL (13.3-17.7); LYMPHOCYTES # (AUTO) 0.6 X 10^3 (1.0-4.0); LYMPHOCYTES % (AUTO) 8 % (12-44); MEAN CORPUSCULAR HEMOGLOBIN 35 PG (25-34); MEAN CORPUSCULAR HGB CONC 32 G/DL (32-36); MEAN CORPUSCULAR VOLUME 109 FL (80-99); MEAN PLATELET VOLUME 9.7 FL (7.4-10.4); MONOCYTES # (AUTO) 0.3 X 10^3 (0.0-1.0); MONOCYTES % (AUTO) 4 % (0-12); NEUTROPHILS # (AUTO) 6.6 X 10^3 (1.8-7.8); NEUTROPHILS % (AUTO) 88 % (42-75); PLATELET COUNT 177 10^3/uL (130-400); RED CELL DISTRIBUTION WIDTH 13.4 % (10.0-14.5); WHITE BLOOD COUNT 7.5 10^3/uL (4.3-11.0)
[2018-10-17 10:34] LABS: BUN/CREATININE RATIO 25; CALCIUM 10.4 MG/DL (8.5-10.1); CARBON DIOXIDE 25 MMOL/L (21-32); CHLORIDE 106 MMOL/L (98-107); CREATININE SERUM 0.84 MG/DL (0.60-1.30); GFR ESTIMATED > 60; GLUCOSE 120 MG/DL (70-105); MAGNESIUM 2.1 MG/DL (1.8-2.4); PHOSPHORUS 1.6 MG/DL (2.3-4.7); POTASSIUM 4.2 MMOL/L (3.6-5.0); SODIUM 143 MMOL/L (135-145)
[2018-10-17] MEDS ORDERED: PRED10TA22 PO (10:40)
[2018-10-17] MEDS ORDERED: RT-ALBUINH IH (10:40)
[2018-10-17] MEDS ORDERED: TIOT4MIS2 INH (10:40)
[2018-10-17] MEDS ORDERED: BUDE10.2 IH (10:40)
--- NOTE | 2018-10-17 10:45 | Discharge Summary-Hospitalist ---
Diagnosis/Chief Complaint Date of Admission Oct 14, 2018 at 18:20 Date of Discharge Discharge Date: Oct 17, 2018 Admission Diagnosis Hypoxia. 2.COPD. 3.postoperative vocal cord paralysis. 4.weight loss Discharge Diagnosis (1) COPD exacerbation Status: Acute (2) Delirium due to another medical condition Status: Resolved (3) PEG (percutaneous endoscopic gastrostomy) status Status: Chronic (4) Dysphagia Status: Chronic (5) Cervical spine disease Status: Chronic (6) Hypoxia Status: Acute Discharge Summary Discharge Physical Exam Allergies: Coded Allergies: No Known Allergies (Unverified Allergy, Unknown, 01/19/17) Vitals & I&Os Vital Signs Date Time Temp Pulse Resp B/P (MAP) Pulse Ox O2 Delivery O2 Flow Rate FiO2 10/17/18 08:00 97.6 89 20 135/67 (89) 94 Room Air 10/17/18 07:15 1.00 10/14/18 22:10 28 General Appearance: No Apparent Distress, WD/WN, Chronically ill, Thin Respiratory: Chest Non Tender, Lungs Clear, Normal Breath Sounds, No Accessory Muscle Use, No Respiratory Distress Cardiovascular: Regular Rate, Rhythm, No Edema, No Gallop, No JVD, No Murmur, Normal Peripheral Pulses Neurologic/Psychiatric: Alert, Oriented x3, No Motor/Sensory Deficits, Normal Mood/Affect Hospital Course Was the Problem List Reviewed?: Yes Hospital course: Patient had an uneventful observation hospital course he was admitted with delirium and hypoxia and diagnosed with acute exacerbation of COPD placed on IV steroids and pulmonology was consulted. Supportive care with IV fluids was maintained with good resolution of dehydration. Home feeding was restarted via PEG tube along with supplement of oral intake of which he is able to eat a small amount just recently approved by speech therapy. IV steroids resolve the wheezing and hypoxemia and he does use oxygen at night and as needed at home. Labs remained normal. CT of brain was ordered and pending at time of discharge note dictation. No evidence of the source of the confusion so he will have close follow-up with his primary care provider Dr. Hanson and patient will remain on all of his home medications as before. Labs (last 24 hrs) Laboratory Tests 10/17/18 10:05: White Blood Count 7.5, Red Blood Count 3.13L, Hemoglobin 10.9L, Hematocrit 34L, Mean Corpuscular Volume 109H, Mean Corpuscular Hemoglobin 35H, Mean Corpuscular Hemoglobin Concent 32, Red Cell Distribution Width 13.4, Platelet Count 177, Mean Platelet Volume 9.7, Neutrophils (%) (Auto) 88H, Lymphocytes (%) (Auto) 8L , Monocytes (%) (Auto) 4, Eosinophils (%) (Auto) 0, Basophils (%) (Auto) 0, Neutrophils # (Auto) 6.6, Lymphocytes # (Auto) 0.6L, Monocytes # (Auto) 0.3, Eosinophils # (Auto) 0.0, Basophils # (Auto) 0.0, Sodium Level 143, Potassium Level 4.2, Chloride Level 106, Carbon Dioxide Level 25, Anion Gap 12, Blood Urea Nitrogen 21H, Creatinine 0.84, Estimat Glomerular Filtration Rate > 60, BUN /Creatinine Ratio 25, Glucose Level 120H, Calcium Level 10.4H, Phosphorus Level 1.6L, Magnesium Level 2.1, B-Type Natriuretic Peptide 192.2H, Thyroid Stimulating Hormone (TSH) 1.97 Patient resulted labs reviewed. Pending Labs Laboratory Tests 10/17/18 10:05: White Blood Count 7.5, Red Blood Count 3.13, Hemoglobin 10.9, Hematocrit 34, Mean Corpuscular Volume 109, Mean Corpuscular Hemoglobin 35, Mean Corpuscular Hemoglobin Concent 32, Red Cell Distribution Width 13.4, Platelet Count 177, Mean Platelet Volume 9.7, Neutrophils (%) (Auto) 88, Lymphocytes (%) (Auto) 8, Monocytes (%) (Auto) 4, Eosinophils (%) (Auto) 0, Basophils (%) (Auto) 0, Neutrophils # (Auto) 6.6, Lymphocytes # (Auto) 0.6, Monocytes # (Auto) 0.3, Eosinophils # (Auto) 0.0, Basophils # (Auto) 0.0, Sodium Level 143, Potassium Level 4.2, Chloride Level 106, Carbon Dioxide Level 25, Anion Gap 12, Blood Urea Nitrogen 21, Creatinine 0.84, Estimat Glomerular Filtration Rate > 60, BUN/ Creatinine Ratio 25, Glucose Level 120, Calcium Level 10.4, Phosphorus Level 1.6 , Magnesium Level 2.1, B-Type Natriuretic Peptide 192.2, Vitamin B12 Level [ Pending], Folate [Pending], Thyroid Stimulating Hormone (TSH) 1.97 Discussion & Recommendations Discharge Planning: <30 minutes discharge planning Discharge Home Medications: Active Scripts Active Prednisone 10 Mg Tab.ds.pk 10 Mg PO DAILY Take 6 tabs(60mg)daily,decrease by 1 tab(10MG)daily. Proair Hfa (Albuterol Sulfate) 1 Puff Puff 2 Puff IH Q4H PRN Spiriva Respimat 2.5MCG/ACTUATION (Tiotropium [place]) 4 Gm Mist.inhal 2 Puff INH DAILY Symbicort 160-4.5 Mcg Inhaler (Budesonide/Formoterol Fumarate) 10.2 Gm Hfa.aer.ad 2 Puff IH DAILY Reported Trazodone HCl 50 Mg Tablet 50 Mg PO HS Cyclobenzaprine HCl 10 Mg Tablet 10 Mg PO TID PRN Mucinex (Guaifenesin) 1,200 Mg Tab.er.12h 1,200 Mg PO BID Pantoprazole Sodium 40 Mg Tablet.dr 40 Mg PO DAILY LAST FILLED #30 07-11-18 Paroxetine HCl 10 Mg Tablet 10 Mg PO DAILY LAST FILLED #30 08-13-18 Diazepam 2 Mg Tablet 2-4 Mg PO HS Oxycodone HCl 10 Mg Tablet 10 Mg PO TID PRN Flomax (Tamsulosin HCl) 0.4 Mg Cap 0.8 Mg PO HS TAKES 2 (0.4MG) CAPSULES Finasteride 5 Mg Tablet 5 Mg PO 1600 Baclofen 20 Mg Tablet 10 Mg PO TID PRN Instructions to patient/family Please see electronic discharge instructions given to patient. Clinical Quality Measures DVT/VTE Risk/Contraindication: Risk Factor Score Per Nursin RFS Level Per Nursing on Admit: 4+=Very High Problem Qualifiers (1) Dysphagia: Dysphagia type: other dysphagia Qualified Codes: R13.19 - Other dysphagia CODIE BREWER DO Oct 17, 2018 10:45
--- NOTE | 2018-10-17 11:18 | NUR ---
CM/SS, respond to consult and visited with patient. He is established with [facility]: Dr. Pito Wing PH: [phone] FX: [phone] Anticipate discharge today and patient will return home alone as before. He indicates he will self-limit his driving due to current medical and possible cognitive changes. Patient has long standing health issues that he has been able to manage on his own thus far, including PEG and tube feedings. Patient gets his Rx through [facility], Dr. Wing as noted above. [employer] has faxed clinical information and new Rx to Dr. Wing after contacting [facility] to get phone and fax number. No other needs anticipated, will follow through discharge to address unforeseen issues.
--- NOTE | 2018-10-17 11:44 | Occupational Ther Daily Note ---
OT Current Status-Daily Note Subjective Pt in bed, alert, oriented, cooperative & agree for therapy. Pt was coughing a lot due to COPD. Pain Numeric Pain Scale: 0-No Pain Location: No Pain Reported Mental Status/Objective Patient Orientation: Person, Place, Time Therapy Code Descriptions/Definitions Functional [place] Measure: 0=Not Assessed/NA 4=Minimal Assistance 1=Total Assistance 5=Supervision or Setup 2=Maximal Assistance 6=Modified [place] 3=Moderate Assistance 7=Complete [place] Attachments: Oxygen, PEG Tube ADL-Treatment Pt participated in shower activity, Toilet hygiene activity, dressing/ undressing garments, func transfers, , grooming . Pt needs min A in applying shampoo / Liquid soap , washing with long handled shower head . Needs min A in drying back with towels , mod I in drying whole body with towels , Pt needs SBA in UB & LB Dressing garments & socks.. Pt mod I in grooming activity. Pt completed 15 reps x 2 sets x 2 lb wts, 25 reps with red theraband , 25 reps with hand gripper . SBA in func transfers & mod I in supine to sit at the EOB. Pt fatigue soon . O2 dependent, 2 L On by NC. Eating (FIM): 6 Grooming (FIM): 6 Bathing (FIM): 4 Bathing Location: L Arm, R Arm, L Upper Leg, R Upper Leg, L Lower Leg ( including foot), R Lower Leg (including foot), Chest, Abdomen, Buttocks, Perineal Area Upper Body (FIM): 6 Lower Body Dressing (FIM): 5 Toileting (FIM): 5 Transfers (B, C, W/C) (FIM): 5 Toilet/Commode Transfer (FIM): 5 Tub Transfer(FIM): 0 Shower Transfer(FIM): 5 Education OT Patient Education: Correct positioning Teaching Recipient: Patient Teaching Methods: Demonstration Response to Teaching: Verbalize Understanding OT Short Term Goals Short Term Goals Transfers (B,C,W/C) (FIM): 7 1=Demonstrate adherence to instructed precautions during ADL tasks. 2=Patient will verbalize/demonstrate understanding of assistive devices/ modifications for ADL. 3=Patient will improve strength/tolerance for activity to enable patient to perform ADL's. OT Prison Goals Order Desk Caller Goals Time Frame: Oct 23, 2018 Pt. will demonstrate full independence with daily ADLs, and will demonstrate ability to complete safe and functional transfers with no loss of balance. Pt. and OT will also explore safety resources for safe return home. Additional Goals: 1-Demonstrate ADL Tasks, 2-Verbalize Understanding, 3- ImproveStrength/Susie 1=Demonstrate adherence to instructed precautions during ADL tasks. 2=Patient will verbalize/demonstrate understanding of assistive devices/ modifications for ADL. 3=Patient will improve strength/tolerance for activity to enable patient to perform ADL's. OT Education/Plan Problem List/Assessment Assessment: Decreased Activ Tolerance, Decreased Safety Aware, Decreased UE Strength, Dependent Transfers, Impaired Funct Balance, Impaired Self-Care Skills Discharge Recommendations Plan/Recommendations: Continue POC Therapy D/C Recommendations: Home w/ Family Support Equpiment Recommendations-D/C: Extended Bath Bench, Extended Shower Sprayer, Crew Leader Treatment Plan/Plan of Care Treatment,Training & Education: Yes Patient would benefit from OT for education, treatment and training to promote independence in ADL's, mobility, safety and/or upper extremity function for ADL' s. Plan of Care: ADL Retraining, Functional Mobility, UE Funct Exercise/Act Treatment Duration: Oct 23, 2018 Frequency: 5 times per week Estimated Hrs Per Day: .5 hour per day Agreement: Yes Rehab Potential: Good Time/GCodes Start Time: 10:05 Stop Time: 11:00 Total Time Billed (hr/min): 55 Billed Treatment Time 1, ADL 45 min, Ex 10 min., Total 55 minutes. KENNEDY QUINTANILLA OT Oct 17, 2018 11:44
--- NOTE | 2018-10-17 13:28 | Diagnostic Imaging Report ---
PROCEDURE: CT head without contrast. TECHNIQUE: Multiple contiguous axial images were obtained through the brain without the use of intravenous contrast. Auto Exposure Controls were utilized during the CT exam to meet ALARA standards for radiation dose reduction. INDICATION: Confusion. FINDINGS: There are no prior studies available for comparison. There is no mass, shift of the midline, or hemorrhage to suggest an acute intracranial abnormality. The normal tentorial blush is noted. The ventricles are not abnormally dilated. There is mild cortical atrophy present. The degree of atrophy is consistent with the patient's age. The bone windows show no evidence for a skull fracture or for a destructive lesion. The orbits and sinuses where visualized are unremarkable for an acute abnormality. IMPRESSION: 1. There is no evidence for an acute intracranial abnormality. 2. If clinical concern regarding an underlying abnormality persists and further imaging is desired, then MRI will be recommended. Dictated by: Dictated on workstation # [id number]
[2018-10-17 15:49] VITALS: BP 140/69
[2018-10-17] MEDS ORDERED: ASPIRIN 81 MG CHEW (CHILDREN'S ASA) PO NR (18:00)
--- NOTE | 2018-10-17 18:08 | NUR ---
Patient was on 1 L and O2 Sat of 91% and o2 was removed and patient was on RA for over 60 mins and was satting at 93%, then walked for 6 mins and did not desat below 91%. Patient does not qualify for O2 at rest or on exertion at this time.
--- NOTE | 2018-10-17 18:23 | Consultation-Cardiology ---
HPI-Cardiology Cardiology Consultation: Date of Consultation 10/17/18 Time Seen by a Provider: 17:50 Date of Admission Attending Physician Dayo Kerns MD Admitting Physician Ollie Pretty MD Consulting Physician KIANA MCPHERSON MD, MA, FACP, FACC, FSCAI, CCDS Physician requesting consult: Dr Brewer HPI: Chief Complaint: Reason for consultation: irreg pulse 73 y man admitted to Dr Brewer with shortness of breath a few days ago. Noted by the resp therapist and his nurse to have an irreg heart rate who reported to Dr Brewer who asked us to see him in consult. Mr Louis does not report any cp or palp or syncope. Report a chronic history premature atrial contractions. His shortness of breath is now at its usual baseline. He wishes to go home Review of Systems-Cardiology Review of Systems Constitutional: malaise; No weight loss, No weight gain Eyes: No vision change Ears/Nose/Throat: No ear discharge, No recent hearing loss Respiratory: As described under HPI Cardiovascular: As described under HPI Gastrointestinal: No diarrhea, No nausea, No vomiting; other (chronic dysphagia following cervical spinal surgery; PEG tube in place) Genitourinary: No dysuria, No hematuria, No urine frequency changes Musculoskeletal: No back pain, No joint pain Skin: No rash, No ulcerations Psychiatric/Neurological: other (notes chronic, bilat leg weakness, but able to ambulate but states tends to fall due to leg weakness); No seizure, No focal weakness, No syncope Hematologic: No bleeding abnormalities UJB-[id number]-Fzmqkc Hx Patient Social History Alcohol Use: Denies Use Recreational Drug Use: No Smoking Status: Former Smoker Type Used: Cigarettes 2nd Hand Smoke Exposure: No Recent Foreign Travel: No Recent Infectious Disease Expo: No Hospitalization with Isolation: Denies Immunizations Up To Date Date of Pneumonia Vaccine: Apr 15, 2018 Date of Influenza Vaccine: Apr 15, 2018 Past Medical History PMH As described under Assessment. Family Medical History Family History: FH: COPD (chronic obstructive pulmonary disease) 19 FATHER Kidney disease 19 MOTHER Allergies and Home Medications Allergies Coded Allergies: No Known Allergies (Unverified Allergy, Unknown, 01/19/17) Home Medications Albuterol Sulfate 1 Puff Puff, 2 PUFF IH Q4H PRN for SHORTNESS OF BREATH Prescribed by: CODIE BREWER on 10/17/18 1040 Baclofen 20 Mg Tablet, 10 MG PO TID PRN for MUSCLE SPASMS, (Reported) Budesonide/Formoterol Fumarate 10.2 Gm Hfa.aer.ad, 2 PUFF IH DAILY Prescribed by: CODIE BREWER on 10/17/18 1040 Cyclobenzaprine HCl 10 Mg Tablet, 10 MG PO TID PRN for MUSCLE SPASMS, (Reported) Diazepam 2 Mg Tablet, 2-4 MG PO HS, (Reported) Finasteride 5 Mg Tablet, 5 MG PO 1600, (Reported) Guaifenesin 1,200 Mg Tab.er.12h, 1,200 MG PO BID, (Reported) Oxycodone HCl 10 Mg Tablet, 10 MG PO TID PRN for PAIN-SEVERE, (Reported) Pantoprazole Sodium 40 Mg Tablet.dr, 40 MG PO DAILY, (Reported) LAST FILLED #30 07-11-18 Paroxetine HCl 10 Mg Tablet, 10 MG PO DAILY, (Reported) LAST FILLED #30 08-13-18 Prednisone 10 Mg Tab.ds.pk, 10 MG PO DAILY Take 6 tabs(60mg)daily,decrease by 1 tab(10MG)daily. Prescribed by: CODIE BREWER on 10/17/18 1040 Tamsulosin HCl 0.4 Mg Cap, 0.8 MG PO HS, (Reported) TAKES 2 (0.4MG) CAPSULES Tiotropium [place] 4 Gm Mist.inhal, 2 PUFF INH DAILY Prescribed by: CODIE BREWER on 10/17/18 1040 Trazodone HCl 50 Mg Tablet, 50 MG PO HS, (Reported) Patient Home Medication List Home Medication List Reviewed: Yes Physical Exam-Cardiology Physical Exam Vital Signs/I&O 10/17/18 10/17/18 10/17/18 10/17/18 07:15 08:00 08:00 11:33 Temp 97.6 Pulse 89 Resp 20 B/P (MAP) 135/67 (89) Pulse Ox 97 94 91 O2 Delivery Nasal Cannula Room Air Nasal Cannula Nasal Cannula O2 Flow Rate 1.00 2.00 1.00 10/17/18 10/17/18 10/17/18 10/17/18 15:49 16:14 16:15 16:24 Temp 97.5 Pulse 89 84 Resp 16 B/P (MAP) 140/69 (92) Pulse Ox 93 91 92 O2 Delivery Room Air Room Air O2 Flow Rate 1.00 10/17/18 00:00 Intake Total 1930 ml Balance 1930 ml Capillary Refill : Less Than 3 Seconds Constitutional: AAO x 3, well-developed, other (thin-appearing) HEENT: PERRL, EOMI, oral hygience is good; No xanthelasmas are seen Neck: carotid pulses are 2 + bilaterally, with good upstrokes Respiratory: No accessory muscle use; other (fair to good bilat air entry, somewhat prolonged exp phase) Cardiovascular: regular rate-rhythm, S1 and S2, systolic murmur (soft GALEN ) Gastrointestinal: No tender; soft; No guarding, No rebound; audible bowel sounds, other (PEG tube in place) Extremities: No clubbing, No cyanosis, No significant edema Neurologic/Psychiatric: oriented x 3, grossly intact, power is 5/5 both on sides Skin: No rash on exposed areas, No ulcerations on exposed areas Data Review Labs Laboratory Tests 10/17/18 10:05: White Blood Count 7.5, Red Blood Count 3.13L, Hemoglobin 10.9L, Hematocrit 34L, Mean Corpuscular Volume 109H, Mean Corpuscular Hemoglobin 35H, Mean Corpuscular Hemoglobin Concent 32, Red Cell Distribution Width 13.4, Platelet Count 177, Mean Platelet Volume 9.7, Neutrophils (%) (Auto) 88H, Lymphocytes (%) (Auto) 8L , Monocytes (%) (Auto) 4, Eosinophils (%) (Auto) 0, Basophils (%) (Auto) 0, Neutrophils # (Auto) 6.6, Lymphocytes # (Auto) 0.6L, Monocytes # (Auto) 0.3, Eosinophils # (Auto) 0.0, Basophils # (Auto) 0.0, Sodium Level 143, Potassium Level 4.2, Chloride Level 106, Carbon Dioxide Level 25, Anion Gap 12, Blood Urea Nitrogen 21H, Creatinine 0.84, Estimat Glomerular Filtration Rate > 60, BUN /Creatinine Ratio 25, Glucose Level 120H, Calcium Level 10.4H, Phosphorus Level 1.6L, Magnesium Level 2.1, B-Type Natriuretic Peptide 192.2H, Thyroid Stimulating Hormone (TSH) 1.97 Laboratory Tests 10/17/18 10:05 A/P-Cardiology Assessment/Admission Diagnosis Mild sinus node dysfunction. Sinus rhythm with sinus arrhythmia and PACs Borderline hypertension Quit chronic tobacco use in or around 2013 COPD S/p cervical discectomy in or around 2009 complicated by dysphagia that has led to PEG tube placement Chronic macrocytic anemia that developed after PEG tube placement Multiple myeloma Discussion and Recomendations * We recommend therapy with low-dose bb and ASA * Outpt f/u advised * I discussed his CV issues with him and answered questions Clinical Quality Measures DVT/VTE Risk/Contraindication: Risk Factor Score Per Nursin RFS Level Per Nursing on Admit: 4+=Very High KIANA MCPHERSON MD FACP FAC CCDS Oct 17, 2018 18:23
--- NOTE | 2018-10-17 19:57 | NUR ---
1951-pt son arrived to take him home, all belongings were sent with the pt.
[2018-10-18] MEDS ORDERED: ASPIRIN 81 MG CHEW (CHILDREN'S ASA) PO SCH (09:00)
== END 2018-10-17 10:43 | disposition home or self-care (01) ==
LOC: EDUNIT# 15:29 → ER 15:30 → 4TH 18:20 → UNDOADMOB 18:20 → 4TH 20:40 → UNDODISOB 10-17 19:50
PROVIDERS: ADMIT Internal Medicine; ATTEND Internal Medicine
DX: J43.9 Emphysema, unspecified (principal); I49.5 Sick sinus syndrome; I10 Essential (primary) hypertension; N17.9 Acute kidney failure, unspecified; C90.00 Multiple myeloma not having achieved remission; D53.9 Nutritional anemia, unspecified; F05 Delirium due to known physiological condition; R13.19 Other dysphagia; R09.02 Hypoxemia; J98.11 Atelectasis; J38.00 Paralysis of vocal cords and larynx, unspecified; R63.4 Abnormal weight loss; R25.2 Cramp and spasm; Z93.1 Gastrostomy status; Z87.891 Personal history of nicotine dependence
CPT/HCPCS: 36415; 70450; 71045; 71046; 80048; 80053; 82607; 82746; 82805; 83735; 83880; 84100; 84443; 85007; 85025; 85027; 86141; 94640; 94760; 94761; 96361; 96374; 96375; G0378

== ENCOUNTER → 2018-11-07 | Outpatient (CLI) | payer MEDICARE, OTHER ==
[~2018-11-07] MED LIST changes: +CYCL10TA9 PO; +DIAZ2TAB2 PO; +GUAI120013 PO; +MELO15TA39 PO; +PANT40TA3 PO; +PARO10TA3 PO; +PRED10TA22 PO; +RT-ALBUINH IH; +TAMS0.4C98 PO; +TIOT4MIS2 INH; +TRAZ-189 PO
== END ==
LOC: LAB 13:25
PROVIDERS: ATTEND Internal Medicine Critical Care Medicine
DX: J44.9 Chronic obstructive pulmonary disease, unspecified (principal); J47.9 Bronchiectasis, uncomplicated; J69.0 Pneumonitis due to inhalation of food and vomit; R53.83 Other fatigue; D47.2 Monoclonal gammopathy
CPT/HCPCS: 87070; 87077; 87205

== ENCOUNTER 2019-02-06 13:47 | Emergency (ER) | payer MEDICARE, OTHER ==
[~2019-02-06] VITALS: Ht 165.1 cm; Wt 59.9 kg
[~2019-02-06 13:47] MED LIST changes: -TRAZ-189 PO; +TRAZ-222 PO
[2019-02-06] MEDS ORDERED: LACTATED RINGERS 1,000 ML IV SCH (15:15)
[2019-02-06] MEDS ORDERED: NS IV 500 ML 500 ML IV SCH (15:15)
[2019-02-06 15:16] LABS: BASOPHILS % (AUTO) 0 % (0-10); EOSINOPHILS # (AUTO) 0.2 10^3/uL (0.0-0.3); EOSINOPHILS % (AUTO) 3 % (0-10); HEMATOCRIT 31 % (40-54); HEMOGLOBIN 10.2 G/DL (13.3-17.7); LYMPHOCYTES # (AUTO) 1.5 X 10^3 (1.0-4.0); LYMPHOCYTES % (AUTO) 23 % (12-44); MEAN CORPUSCULAR HEMOGLOBIN 35 PG (25-34); MEAN CORPUSCULAR HGB CONC 33 G/DL (32-36); MEAN CORPUSCULAR VOLUME 108 FL (80-99); MEAN PLATELET VOLUME 9.6 FL (7.4-10.4); MONOCYTES # (AUTO) 0.4 X 10^3 (0.0-1.0); MONOCYTES % (AUTO) 7 % (0-12); NEUTROPHILS # (AUTO) 4.4 X 10^3 (1.8-7.8); NEUTROPHILS % (AUTO) 67 % (42-75); PLATELET COUNT 186 10^3/uL (130-400); RED CELL DISTRIBUTION WIDTH 16.8 % (10.0-14.5); WHITE BLOOD COUNT 6.5 10^3/uL (4.3-11.0)
--- NOTE | 2019-02-06 15:21 | ED General ---
General Chief Complaint: Dizziness/Syncope Stated Complaint: DIZZINESS;BP LOW;WEAKNESS Nursing Triage Note: PATIENT SENT HERE FROM [facility] FOR DIZZINESS, PARTICULARLY WITH STANDING, THAT HAS BEEN GOING ON FOR A COUPLE DAYS. REHAB WAS CONCERNED ABOUT DEHYDRATION. Nursing Sepsis Screen: No Definite Risk Source of Information: Patient Exam Limitations: No Limitations History of Present Illness Date Seen by Provider: Feb 06, 2019 Time Seen by Provider: 15:18 Initial Comments Sent to ER by wheelchair from pulmonary rehabilitation with reports of dizziness upon standing for the past 2-3 days. He wasn't particularly concerned by these symptoms but he was in pulmonary rehabilitation when he complained of them and this concerned staff members who brought him to the emergency room. He reportedly had some orthostatic vital signs done upstairs which did show a drop in blood pressure upon standing. He does poorly with oral intake, has a PEG tube and suspects that he might be a little dehydrated. Timing/Duration: 1-2 Days Severity: Moderate Allergies and Home Medications Allergies Coded Allergies: No Known Allergies (Unverified Allergy, Unknown, 01/19/17) Home Medications Albuterol Sulfate 1 Puff Puff, 2 PUFF IH Q4H PRN for SHORTNESS OF BREATH Prescribed by: CODIE BREWER on 10/17/18 1040 Baclofen 20 Mg Tablet, 10 MG PO TID PRN for MUSCLE SPASMS, (Reported) Budesonide/Formoterol Fumarate 10.2 Gm Hfa.aer.ad, 2 PUFF IH DAILY Prescribed by: CODIE BREWER on 10/17/18 1040 Cyclobenzaprine HCl 10 Mg Tablet, 10 MG PO TID PRN for MUSCLE SPASMS, (Reported) Diazepam 2 Mg Tablet, 2-4 MG PO HS, (Reported) Finasteride 5 Mg Tablet, 5 MG PO 1600, (Reported) Guaifenesin 1,200 Mg Tab.er.12h, 1,200 MG PO BID, (Reported) Oxycodone HCl 10 Mg Tablet, 10 MG PO TID PRN for PAIN-SEVERE, (Reported) Pantoprazole Sodium 40 Mg Tablet.dr, 40 MG PO DAILY, (Reported) LAST FILLED #30 07-11-18 Paroxetine HCl 10 Mg Tablet, 10 MG PO DAILY, (Reported) LAST FILLED #30 08-13-18 Prednisone 10 Mg Tab.ds.pk, 10 MG PO DAILY Take 6 tabs(60mg)daily,decrease by 1 tab(10MG)daily. Prescribed by: CODIE BREWER on 10/17/18 1040 Tamsulosin HCl 0.4 Mg Cap, 0.8 MG PO HS, (Reported) TAKES 2 (0.4MG) CAPSULES Tiotropium [place] 4 Gm Mist.inhal, 2 PUFF INH DAILY Prescribed by: CODIE BREWER on 10/17/18 1040 Trazodone HCl 50 Mg Tablet, 50 MG PO HS, (Reported) Patient Home Medication List Home Medication List Reviewed: Yes Review of Systems Review of Systems Constitutional: see HPI EENTM: see HPI Respiratory: no symptoms reported Cardiovascular: no symptoms reported Genitourinary: no symptoms reported Musculoskeletal: no symptoms reported Skin: no symptoms reported Psychiatric/Neurological: No Symptoms Reported Hematologic/Lymphatic: No Symptoms Reported Immunological/Allergic: no symptoms reported Past Oqlpigs-Rnzpfl-Qqgbot Hx Patient Social History Alcohol Use: Denies Use Number of Drinks Today: Alcohol Beverage of Choice: Wine Recreational Drug Use: No Smoking Status: Former Smoker Type Used: Cigarettes Former Smoker, Quit: Jul 16, 2014 2nd Hand Smoke Exposure: No Recent Foreign Travel: No Contact w/Someone Who Travel: No Recent Infectious Disease Expo: No Recent Hopitalizations: No Immunizations Up To Date PED Vaccines UTD: Yes Date of Pneumonia Vaccine: Apr 15, 2018 Date of Influenza Vaccine: Apr 15, 2018 Seasonal Allergies Seasonal Allergies: No Past Medical History Surgeries: Yes (CATARACT, EGD, COLONOSCOPY, PEG TUBE, HERNIA REPAIR, SPINAL SURGERY ON NECK) Eye Surgery Respiratory: Yes (EMPHYSEMA, COPD, WEARS OXYGEN AT HS) COPD Currently Using CPAP: No Currently Using BIPAP: No Cardiac: No Neurological: No Genitourinary: No Prostate Problems Gastrointestinal: Yes (CANNOT SWALLOW, PEG TUBE) Musculoskeletal: Yes (C3-[address]) Endocrine: No HEENT: Yes Cataract, Dysphagia Hearing Impairment: Denies Cancer: Yes (MULTIPLE MYELOMA) Did You Recieve Any Treatments: No Psychosocial: No Integumentary: No Blood Disorders: Yes (MULTIPLE MYELOMA, MACROCYTIC ANEMIA) Family Medical History FH: COPD (chronic obstructive pulmonary disease) 19 FATHER Kidney disease 19 MOTHER Physical Exam Vital Signs Vital Signs - First Documented 02/06/19 13:54 Temp 97.7 Pulse 98 Resp 18 B/P (MAP) 137/83 (101) Pulse Ox 98 Capillary Refill : Less Than 3 Seconds Height, Weight, BMI Height: 5'5.00" Weight: 132lbs. 0oz. 59.060329ic; 21.4 BMI Method:Actual General Appearance: No Apparent Distress, WD/WN Eyes: Bilateral Eye Normal Inspection, Bilateral Eye PERRL, Bilateral Eye EOMI Respiratory: No Accessory Muscle Use Cardiovascular: Regular Rate, Rhythm, Normal Peripheral Pulses Gastrointestinal: Normal Bowel Sounds, Non Tender, Soft Extremity: Normal Capillary Refill, Normal Inspection Neurologic/Psychiatric: Alert, Oriented x3 Skin: Normal Color, Warm/Dry Progress/Results/Core Measures Suspected Sepsis Recent Fever Within 48 Hours: No Infection Criteria Present: None New/Unexplained Altered Menta: No Sepsis Screen: No Definite Risk SIRS Temperature:97.7 Pulse: 98 Respiratory Rate: 18 Laboratory Tests 02/06/19 15:11: White Blood Count 6.5 Blood Pressure 137 /83 Mean: 101 Laboratory Tests 02/06/19 15:11: Creatinine 1.08, Platelet Count 186 Results/Orders Lab Results Laboratory Tests Test 02/06/19 15:11 Range/Units White Blood Count 6.5 4.3-11.0 10^3/uL Red Blood Count 2.90 L 4.35-5.85 10^6/uL Hemoglobin 10.2 L 13.3-17.7 G/DL Hematocrit 31 L 40-54 % Mean Corpuscular Volume 108 H 80-99 FL Mean Corpuscular Hemoglobin 35 H 25-34 PG Mean Corpuscular Hemoglobin Concent 33 32-36 G/DL Red Cell Distribution Width 16.8 H 10.0-14.5 % Platelet Count 186 130-400 10^3/uL Mean Platelet Volume 9.6 7.4-10.4 FL Neutrophils (%) (Auto) 67 42-75 % Lymphocytes (%) (Auto) 23 12-44 % Monocytes (%) (Auto) 7 0-12 % Eosinophils (%) (Auto) 3 0-10 % Basophils (%) (Auto) 0 0-10 % Neutrophils # (Auto) 4.4 1.8-7.8 X 10^3 Lymphocytes # (Auto) 1.5 1.0-4.0 X 10^3 Monocytes # (Auto) 0.4 0.0-1.0 X 10^3 Eosinophils # (Auto) 0.2 0.0-0.3 10^3/uL Basophils # (Auto) 0.0 0.0-0.1 10^3/uL Sodium Level 139 135-145 MMOL/L Potassium Level 5.1 H 3.6-5.0 MMOL/L Chloride Level 102 98-107 MMOL/L Carbon Dioxide Level 28 21-32 MMOL/L Anion Gap 9 5-14 MMOL/L Blood Urea Nitrogen 31 H 7-18 MG/DL Creatinine 1.08 0.60-1.30 MG/DL Estimat Glomerular Filtration Rate > 60 BUN/Creatinine Ratio 29 Glucose Level 99 70-105 MG/DL Calcium Level 10.1 8.5-10.1 MG/DL My Orders Orders - FABIANA CARBAJAL APRN Cbc With Automated Diff (02/06/19 15:06) Basic Metabolic Panel (02/06/19 15:06) Ed Iv/Invasive Line Start (02/06/19 15:06) Ns Iv 500 Ml (Sodium Chloride 0.9%) (02/06/19 15:15) Lactated Ringers (Lr 1000 Ml Iv Solution (02/06/19 15:15) Vital Signs/I&O 02/06/19 13:54 Temp 97.7 Pulse 98 Resp 18 B/P (MAP) 137/83 (101) Pulse Ox 98 Capillary Refill : Less Than 3 Seconds Blood Pressure Mean: 101 Departure Impression Primary Impression: Orthostatic dizziness Disposition: 01 HOME, SELF-CARE Condition: Stable Departure-Patient Inst. Decision time for Depature: 15:55 Referrals: LA JOSEPH MD (PCP) Primary Care Physician Patient Instructions: Orthostatic Hypotension (DC) FABIANA CARBAJAL APRN Feb 06, 2019 15:20
[2019-02-06 15:49] LABS: BUN/CREATININE RATIO 29; CALCIUM 10.1 MG/DL (8.5-10.1); CARBON DIOXIDE 28 MMOL/L (21-32); CHLORIDE 102 MMOL/L (98-107); CREATININE SERUM 1.08 MG/DL (0.60-1.30); GFR ESTIMATED > 60; GLUCOSE 99 MG/DL (70-105); POTASSIUM 5.1 MMOL/L (3.6-5.0); SODIUM 139 MMOL/L (135-145)
--- NOTE | 2019-02-06 15:55 | NUR ---
TO ROOM FLUIDS INFUSING NO NEW C/O
[2019-02-06 15:59] VITALS: BP 130/68
== END 2019-02-06 15:59 | disposition home or self-care (01) ==
LOC: EDUNIT# 13:47 → ER 13:48
DX: R42 Dizziness and giddiness (principal); J43.9 Emphysema, unspecified; Z93.1 Gastrostomy status; Z87.891 Personal history of nicotine dependence; Z98.890 Other specified postprocedural states; Z99.81 Dependence on supplemental oxygen; Z85.79 Personal history of other malignant neoplasms of lymphoid, hematopoietic and related tissues
CPT/HCPCS: 36415; 80048; 85025; 96360

== ENCOUNTER 2019-02-25 14:24 | Outpatient (RCR) | payer MEDICARE, OTHER ==
[2019-02-13 13:00] VITALS: BP 122/60
[2019-02-25 13:00] VITALS: BP 130/60
[2019-02-25 14:23] VITALS: BP 138/65
== END 2019-05-26 | disposition home or self-care (01) ==
LOC: PULM 14:24
PROVIDERS: ATTEND Internal Medicine Critical Care Medicine
DX: J44.9 Chronic obstructive pulmonary disease, unspecified (principal)

== ENCOUNTER 2019-08-11 15:11 | Outpatient (RCR) | payer MEDICARE, OTHER ==
[~2019-08-11 15:11] MED LIST changes: -TAMS0.4C98 PO; +TMSL.4C PO; -TRAZ-222 PO; +TRZ50T PO
== END 2019-09-17 15:33 | disposition home or self-care (01) ==
PROVIDERS: ATTEND Internal Medicine
DX: M47.812 Spondylosis without myelopathy or radiculopathy, cervical region (principal); M48.02 Spinal stenosis, cervical region; R53.1 Weakness

== ENCOUNTER → 2019-09-01 | Outpatient (CLI) | payer MEDICARE, OTHER ==
[2019-09-01 18:50] LABS: BASOPHILS % (AUTO) 0 % (0-10); EOSINOPHILS % (AUTO) 1 % (0-10); HEMATOCRIT 26 % (40-54); HEMOGLOBIN 8.5 G/DL (13.3-17.7); LYMPHOCYTES % (AUTO) 15 % (12-44); MEAN CORPUSCULAR HEMOGLOBIN 36 PG (25-34); MEAN CORPUSCULAR HGB CONC 32 G/DL (32-36); MEAN CORPUSCULAR VOLUME 111 FL (80-99); MEAN PLATELET VOLUME 10.4 FL (7.4-10.4); MONOCYTES # (AUTO) 0.4 X 10^3 (0.0-1.0); MONOCYTES % (AUTO) 7 % (0-12); NEUTROPHILS % (AUTO) 77 % (42-75); PLATELET COUNT 181 10^3/uL (130-400); WHITE BLOOD COUNT 6.4 10^3/uL (4.3-11.0)
[2019-09-01 19:06] LABS: BUN/CREATININE RATIO 32; CALCIUM 9.7 MG/DL (8.5-10.1); CARBON DIOXIDE 27 MMOL/L (21-32); CHLORIDE 105 MMOL/L (98-107); CREATININE SERUM 0.75 MG/DL (0.60-1.30); GFR ESTIMATED > 60; GLUCOSE 74 MG/DL (70-105); POTASSIUM 5.1 MMOL/L (3.6-5.0); SODIUM 139 MMOL/L (135-145)
[2019-09-01 19:09] LABS: ERYTHROCYTE SEDIMENTATION RATE > 140 MM/HR (0-30)
== END ==
LOC: LABNPT 18:44
PROVIDERS: ATTEND Internal Medicine
DX: J85.1 Abscess of lung with pneumonia (principal)
CPT/HCPCS: 80048; 85025; 85652; 86141

== ENCOUNTER → 2019-09-12 | Outpatient (CLI) | payer MEDICARE, OTHER ==
[~2019-09-12] MED LIST changes: +CATHETER FLUSH 10 ML SYR IV PRN; +HOLD METFORMIN - RECEIVED CONTRAST 20 ML VIAL IV SCH; +IOHEXOL 350 MG/ML 100 ML (OMNIPAQUE 350) VIAL IV ONE; +NS 100 ML (IVPB) BAG IV ONE
--- NOTE | 2019-09-12 15:05 | Diagnostic Imaging Report ---
PROCEDURE: CT chest with contrast only. TECHNIQUE: Multiple contiguous axial images were obtained through the chest after administration of intravenous contrast. Auto Exposure Controls were utilized during the CT exam to meet ALARA standards for radiation dose reduction. INDICATION: Monoclonal gammopathy. COMPARISON: Exam compared with chest CT 11/21/2016. FINDINGS: There is no suspicious lytic bone lesion identified. No lymphadenopathy or soft tissue mass. While there are chronic changes of COPD, magnitude and heterogeneity of air trapping have progressed in the interim and there is likely an acute inflammatory component present with thickening of the central airways, some intra-airway mucoid debris and likely reactive adenopathy in the right pulmonary hilum. In the medial right middle lobe, abutting the heart border, there are some air bronchograms and some consolidative changes likely pneumonia but warranting CT follow-up to exclude formation of a central mass. No thoracic effusion. No pneumothorax. There is spondylosis without evidence for a vertebral body fracture. The upper abdomen shows a gastrostomy tube in place. Contracted gallbladder. No mass, free air or acute abnormalities. IMPRESSION: 1. No suspicious or acute bony pathology. 2. Progressive changes of emphysema with likely acute inflammatory changes evidenced by airway thickening, mucoid debris and some right perihilar consolidations. Pneumonia cannot be excluded or differentiated from a small central medial right middle lobe mass. Follow-up CT in one month's time after treatment recommended. 3. Indwelling PEG tube without visualized complicating feature. No acute upper abdominal pathology apparent. Dictated by: Dictated on workstation # [id number]
== END ==
LOC: RAD 13:40
PROVIDERS: ATTEND Internal Medicine
DX: J85.2 Abscess of lung without pneumonia (principal); D47.2 Monoclonal gammopathy; J43.9 Emphysema, unspecified
CPT/HCPCS: 71260

== ENCOUNTER → 2019-09-15 | Outpatient (CLI) | payer MEDICARE, OTHER ==
[~2019-09-15] MED LIST changes: -CATHETER FLUSH 10 ML SYR IV PRN; -HOLD METFORMIN - RECEIVED CONTRAST 20 ML VIAL IV SCH; -IOHEXOL 350 MG/ML 100 ML (OMNIPAQUE 350) VIAL IV ONE; -NS 100 ML (IVPB) BAG IV ONE
[2019-09-15 19:47] LABS: BASOPHILS # (AUTO) 0.1 10^3/uL (0.0-0.1); BASOPHILS % (AUTO) 1 % (0-10); EOSINOPHILS # (AUTO) 0.2 10^3/uL (0.0-0.3); EOSINOPHILS % (AUTO) 5 % (0-10); HEMATOCRIT 33 % (40-54); HEMOGLOBIN 10.7 G/DL (13.3-17.7); LYMPHOCYTES # (AUTO) 1.7 X 10^3 (1.0-4.0); LYMPHOCYTES % (AUTO) 35 % (12-44); MEAN CORPUSCULAR HEMOGLOBIN 35 PG (25-34); MEAN CORPUSCULAR HGB CONC 32 G/DL (32-36); MEAN CORPUSCULAR VOLUME 108 FL (80-99); MEAN PLATELET VOLUME 10.5 FL (7.4-10.4); MONOCYTES # (AUTO) 0.4 X 10^3 (0.0-1.0); MONOCYTES % (AUTO) 8 % (0-12); NEUTROPHILS # (AUTO) 2.6 X 10^3 (1.8-7.8); NEUTROPHILS % (AUTO) 51 % (42-75); PLATELET COUNT 367 10^3/uL (130-400); RED CELL DISTRIBUTION WIDTH 16.2 % (10.0-14.5)
[2019-09-15 20:14] LABS: BAND NEUTROPHILS 3 %; NEUTROPHILS % (MANUAL) 49 %
[2019-09-15 20:15] LABS: ANISOCYTOSIS SLIGHT; BASOPHILS % (MANUAL) 1 %; EOSINOPHILS % (MANUAL) 5 %; ERYTHROCYTE SEDIMENTATION RATE > 140 MM/HR (0-30); LYMPHOCYTES % (MANUAL) 35 %; MONOCYTES % (MANUAL) 7 %; POLYCHROMASIA SLIGHT
[2019-09-15 20:27] LABS: ALANINE AMINOTRANSFERASE 16 U/L (0-55); ALBUMIN 3.5 GM/DL (3.2-4.5); ALKALINE PHOSPHATASE 76 U/L (40-136); BILIRUBIN,TOTAL 0.2 MG/DL (0.1-1.0); BUN/CREATININE RATIO 26; CALCIUM 10.1 MG/DL (8.5-10.1); CARBON DIOXIDE 28 MMOL/L (21-32); CHLORIDE 103 MMOL/L (98-107); GFR ESTIMATED > 60; GLUCOSE 93 MG/DL (70-105); POTASSIUM 4.8 MMOL/L (3.6-5.0); SODIUM 142 MMOL/L (135-145); TOTAL PROTEIN 6.9 GM/DL (6.4-8.2)
== END ==
LOC: LABNPT 19:34
PROVIDERS: ATTEND Specialist
DX: J85.1 Abscess of lung with pneumonia (principal)
CPT/HCPCS: 80053; 85007; 85027; 85652; 86141

== ENCOUNTER → 2019-09-18 | Outpatient (CLI) | payer MEDICARE, OTHER | LOC: LAB 16:32 | PROVIDERS: ATTEND Specialist | DX: J44.9 Chronic obstructive pulmonary disease, unspecified (principal); J85.2 Abscess of lung without pneumonia | CPT/HCPCS: 87070; 87077; 87205 ==

== ENCOUNTER → 2020-11-02 | Outpatient (CLI) | payer MEDICARE, OTHER ==
[~2020-11-02] MED LIST changes: +OXC5T PO; -OXYC-529 PO; -PANT40TA3 PO; +PANT40TA52 PO
--- NOTE | 2020-11-02 13:56 | Diagnostic Imaging Report ---
EXAMINATION: CT Chest without contrast. TECHNIQUE: Multiple contiguous axial images were obtained through the chest without the use of intravenous contrast. All CT scans use one or more of the following dose optimizing techniques: automated exposure control, MA and/or KvP adjustment based on a patient size and exam type, or iterative reconstruction. HISTORY: Shortness of breath. COMPARISON: 09/12/2019. FINDINGS: There is no edema or pneumonia. No pleural effusion. No pneumothorax. There is a new 8 mm average diameter left upper lobe pulmonary nodule. There is an adjacent part solid 17 x 14 mm nodule. Lungs are severely emphysematous. There is no axillary or supraclavicular lymphadenopathy. There is no mediastinal lymphadenopathy. Heart size is normal. There are mild coronary artery calcifications. No pericardial effusion. Aorta is normal in caliber. Limited views of the upper abdomen show percutaneous gastrostomy tube. There are no suspicious osseous lesions. IMPRESSION: 1. There are two new left upper lobe pulmonary nodules, suspicious for malignancy but potentially related to an infectious process. Three-month follow-up is recommended versus PET/CT now. Dictated by: Dictated on workstation # [id number]
== END ==
LOC: RAD 13:28
PROVIDERS: ATTEND Internal Medicine
DX: J44.9 Chronic obstructive pulmonary disease, unspecified (principal); R91.8 Other nonspecific abnormal finding of lung field; J69.0 Pneumonitis due to inhalation of food and vomit; E46 Unspecified protein-calorie malnutrition; D47.2 Monoclonal gammopathy; R13.12 Dysphagia, oropharyngeal phase
CPT/HCPCS: 71250

== ENCOUNTER → 2020-11-22 | Outpatient (CLI) | payer MEDICARE, OTHER ==
[~2020-11-22] MED LIST changes: +RT-ALBUTEROL SULF 2.5 MG/3 ML PRE-MIX VIAL IH ONE
== END ==
LOC: RT 15:30
PROVIDERS: ATTEND Internal Medicine
DX: J44.9 Chronic obstructive pulmonary disease, unspecified (principal); J69.0 Pneumonitis due to inhalation of food and vomit; E46 Unspecified protein-calorie malnutrition; D47.2 Monoclonal gammopathy; R53.1 Weakness
CPT/HCPCS: 94060; 94726; 94729

== ENCOUNTER → 2020-11-30 | Outpatient (CLI) | payer MEDICARE, OTHER ==
[~2020-11-30] MED LIST changes: -RT-ALBUTEROL SULF 2.5 MG/3 ML PRE-MIX VIAL IH ONE
--- NOTE | 2020-11-30 15:07 | Diagnostic Imaging Report ---
INDICATION: Left upper lobe lung nodule noted on recent CT. TECHNIQUE: Serum blood glucose level at the time of injection is 140 mg/dL. Patient was administered 14.0 mCi F-18 FDG intravenously in the right antecubital location and PET imaging was performed from the top of the skull to mid thighs. Noncontrast CT was also performed for attenuation correction and anatomic correlation. COMPARISON: No prior PET/CT studies are available for comparison. Comparison is made with conventional CT chest from 11/02/2020. FINDINGS: There is symmetric activity throughout the brain. There is physiologic activity throughout the soft tissues of the neck. The area of nodular density in the left upper lobe does not demonstrate FDG avidity. No mediastinal or hilar hypermetabolism is seen. There is physiologic activity throughout the GI and tracts of the abdomen and pelvis. No suspicious hypermetabolism in the abdomen or pelvis is seen. IMPRESSION: Unremarkable PET/CT study. The area of nodular density in the left upper lobe does not demonstrate FDG avidity. Even so, close interval CT chest follow-up is recommended to show continued stability. Dictated by: Dictated on workstation # [id number]
== END ==
LOC: RAD 10:37
PROVIDERS: ATTEND Internal Medicine Critical Care Medicine
DX: J47.9 Bronchiectasis, uncomplicated (principal); R91.8 Other nonspecific abnormal finding of lung field
CPT/HCPCS: 78815; A9552

== ENCOUNTER → 2020-12-07 | Outpatient (CLI) | payer OTHER ==
--- NOTE | 2020-12-07 17:10 | Diagnostic Imaging Report ---
INDICATION: Multiple myeloma. Patient was administered 25.5 mCi technetium 99m MDP intravenously and whole-body imaging was performed after 3 hour delay. No prior bone scans are available for comparison. Normal uptake of activity by the axial and appendicular skeleton is noted. There is uptake by the kidneys with excretion to urinary bladder. There appears to be some degenerative uptake in the lower thoracic and mid lumbar spine. There is degenerative uptake in the right knee. No suspicious foci are seen to suggest osseous metastatic disease. IMPRESSION: No scintigraphic evidence of osseous metastatic disease. Dictated by: Dictated on workstation # [id number]
== END ==
LOC: CARD 11:35
PROVIDERS: ATTEND Nurse Practitioner
DX: C90.00 Multiple myeloma not having achieved remission (principal)
CPT/HCPCS: 78306

== ENCOUNTER 2021-01-26 14:48 | Outpatient (RCR) | payer OTHER | END 2021-03-02 | disposition home or self-care (01) | PROVIDERS: ATTEND Nurse Practitioner Primary Care | DX: M54.5 Low back pain (principal); M25.561 Pain in right knee; J43.9 Emphysema, unspecified; M81.0 Age-related osteoporosis without current pathological fracture ==

== ENCOUNTER 2021-01-26 14:49 | Outpatient (RCR) | payer MEDICARE, OTHER | END 2021-02-21 | disposition home or self-care (01) | PROVIDERS: ATTEND Internal Medicine | DX: G54.0 Brachial plexus disorders (principal); M62.81 Muscle weakness (generalized) ==

== ENCOUNTER → 2021-02-07 | Outpatient (CLI) | payer MEDICARE, OTHER ==
--- NOTE | 2021-02-07 17:00 | Diagnostic Imaging Report ---
INDICATION: Left hand weakness. Brachial plexus disorder. COMPARISON: None FINDINGS: Frontal, lateral, and open-mouth views of the cervical spine were obtained. Flexion and extension views were also obtained in the lateral projection. Cervical spine is seen down to the C6-C7 level on the lateral view. C7-T1 level is obscured by overlying osseous and soft tissue structures. Patient is status post anterior fusion at C3-C6. Visualized portions of the hardware is intact. Intervertebral disc spacers are also noted. Markers appear appropriately positioned. Static alignment is maintained. There is no significant luis manuel- or retrolisthesis. Comparison of the flexion and extension views shows no abnormal translation. Vertebral body heights are maintained as well. There is no evidence of acute fracture. There is moderate intervertebral disc height loss at C2-C3. Open-mouth view shows normal C1-C2 alignment. Note is made of calcified carotid atherosclerosis on the right. IMPRESSION: 1. Postsurgical changes of previous anterior fusion of the cervical spine as above. No evidence of hardware fracture or failure. 2. No acute abnormality of the cervical spine is identified. Dictated by: Dictated on workstation # [id number]
== END ==
LOC: RAD 15:08
PROVIDERS: ATTEND Physician Assistant
DX: G54.0 Brachial plexus disorders (principal); Z98.1 Arthrodesis status
CPT/HCPCS: 72050

== ENCOUNTER 2021-07-01 16:44 | Day surgery (SDC) | payer MEDICARE, OTHER ==
[2021-07-01] VITALS (9 sets, daily range): BP systolic 130–171; BP diastolic 77–111
[~2021-07-01] VITALS: Ht 162.6 cm; Wt 60.0 kg
[~2021-07-01 16:44] MED LIST changes: +CYCL10TA25 PO; -CYCL10TA9 PO
--- NOTE | 2021-07-01 16:48 | ED EENT ---
History of Present Illness General Stated Complaint: NOSEBLEED Source: patient Exam Limitations: no limitations (FABIANA CARBAJAL APRN) History of Present Illness Date Seen by Provider: Jul 01, 2021 Time Seen by Provider: 16:46 Initial Comments To ER from [facility] to be admitted to surgery for posterior epistaxis. Timing/Duration: abrupt Severity: moderate Location: nose Prearrival Treatment: no prearrival treatment Associated Symptoms: denies symptoms (FABIANA CARBAJAL APRN) Allergies and Home Medications Allergies Coded Allergies: No Known Allergies (Unverified Allergy, Unknown, 01/19/17) Patient Home Medication List Home Medication List Reviewed: Yes (FABIANA CARBAJAL APRN) Albuterol Sulfate (Proair Hfa) 1 Puff Puff, 2 PUFF IH Q4H PRN for SHORTNESS OF BREATH Prescribed by: CODIE BREWER on 10/17/18 1040 Baclofen (Baclofen) 20 Mg Tablet, 10 MG PO TID PRN for MUSCLE SPASMS, (Reported) Entered as Reported by: DAVID JUNIOR on 01/19/17 1034 Budesonide/Formoterol Fumarate (Symbicort 160-4.5 Mcg Inhaler) 10.2 Gm Hfa.aer.ad, 2 PUFF IH DAILY Prescribed by: CODIE BREWER on 10/17/18 1040 Cyclobenzaprine HCl (Cyclobenzaprine HCl) 10 Mg Tablet, 10 MG PO TID PRN for MUSCLE SPASMS, (Reported) Entered as Reported by: NEGRITO TRIPATHI on 10/15/18 1306 Diazepam (Diazepam) 2 Mg Tablet, 2-4 MG PO HS, (Reported) Entered as Reported by: NEGRITO TRIPATHI on 10/15/18 1304 Finasteride (Finasteride) 5 Mg Tablet, 5 MG PO 1600, (Reported) Entered as Reported by: DONAVON LARSON on 12/12/17 1352 Guaifenesin (Mucinex) 1,200 Mg Tab.er.12h, 1,200 MG PO BID, (Reported) Entered as Reported by: NEGRITO TRIPATHI on 10/15/18 1304 Last Action: Reviewed Oxycodone HCl (Oxycodone HCl) 10 Mg Tablet, 10 MG PO TID PRN for PAIN-SEVERE, (Reported) Entered as Reported by: NEGRITO TRIPATHI on 10/15/18 1304 Last Action: Converted Pantoprazole Sodium (Pantoprazole Sodium) 40 Mg Tablet.dr, 40 MG PO DAILY, (Reported) Entered as Reported by: NEGRITO TRIPATHI on 10/15/18 1304 Paroxetine HCl (Paroxetine HCl) 10 Mg Tablet, 10 MG PO DAILY, (Reported) Entered as Reported by: NEGRITO TRIPATHI on 10/15/18 1304 Prednisone (Prednisone) 10 Mg Tab.ds.pk, 10 MG PO DAILY Prescribed by: CODIE BREWER on 10/17/18 1040 Tamsulosin HCl (Flomax) 0.4 Mg Cap, 0.8 MG PO HS, (Reported) Entered as Reported by: NEGRITO TRIPATHI on 10/15/18 1304 Tiotropium Goodwin (Spiriva Respimat 2.5MCG/ACTUATION) 4 Gm Mist.inhal, 2 PUFF INH DAILY Prescribed by: CODIE BREWER on 10/17/18 1040 Trazodone HCl (Trazodone HCl) 50 Mg Tablet, 50 MG PO HS, (Reported) Entered as Reported by: NEGRITO TRIPATHI on 10/15/18 1628 Review of Systems Review of Systems Constitutional: see HPI Eyes: No Symptoms Reported Ears: No Symptoms Reported Nose: see HPI Mouth: no symptoms reported Throat: no symptoms reported Respiratory: no symptoms reported Cardiovascular: no symptoms reported Musculoskeletal: no symptoms reported (FABIANA CARBAJAL APRN) Past Ztevavg-Lnyhri-Nukhtb Hx Immunizations Up To Date PED Vaccines UTD: Yes (FABIANA CARBAJAL APRN) Seasonal Allergies Seasonal Allergies: No (FABIANA CARBAJAL APRN) Past Medical History Surgeries: Yes (CATARACT, EGD, COLONOSCOPY, PEG TUBE, HERNIA REPAIR, SPINAL SURGERY ON NECK) Eye Surgery Respiratory: Yes (EMPHYSEMA, COPD, WEARS OXYGEN AT HS) COPD Currently Using CPAP: No Currently Using BIPAP: No Cardiac: No Neurological: No Genitourinary: No Prostate Problems Gastrointestinal: Yes (CANNOT SWALLOW, PEG TUBE) Musculoskeletal: Yes (C3-[address]) Endocrine: No HEENT: Yes Cataract, Dysphagia Hearing Impairment: Denies Cancer: Yes (MULTIPLE MYELOMA) Did You Recieve Any Treatments: No Psychosocial: No Integumentary: No Blood Disorders: Yes (MULTIPLE MYELOMA, MACROCYTIC ANEMIA) (FABIANA CARBAJAL APRN) Family Medical History FH: COPD (chronic obstructive pulmonary disease) 19 FATHER Kidney disease 19 MOTHER Physical Exam Vital Signs Vital Signs - First Documented 07/01/21 07/01/21 16:44 18:38 Temp 36.8 Pulse 103 Resp 20 B/P (MAP) 141/74 (96) Pulse Ox 93 O2 Delivery Room Air O2 Flow Rate 2.00 (PHILIPPE DENT MD) Height, Weight, BMI Height: 5'5.00" Weight: 128lbs. 8.0oz. [age]yo; 21.4 BMI Method:Actual General Appearance: WD/WN, no apparent distress Eyes: bilateral eye normal inspection, bilateral eye PERRL, bilateral eye EOMI Ears: bilateral ear auricle normal, bilateral ear canal normal, bilateral ear TM normal Nose: No active bleeding Mouth/Throat: normal mouth inspection, pharynx normal Neck: non-tender, full range of motion Respiratory: no respiratory distress, no accessory muscle use Gastrointestinal: normal bowel sounds, non tender Neurologic/Psychiatric: alert, normal mood/affect, oriented x 3 Skin: normal color, warm/dry (FABIANA CARBAJAL APRN) Departure Impression Primary Impression: Posterior epistaxis Disposition: ADMITTED INPATIENT Condition: Stable Admissions Decision to Admit Reason: Admit from ER (General) Decision to Admit/Date: Jul 01, 2021 Time/Decision to Admit Time: 16:47 (FABIANA CARBAJAL APRN) Departure-Patient Inst. Referrals: NO,LOCAL PHYSICIAN (PCP/Family) Primary Care Physician ATTENDING PHYSICIAN NOTE: I was physically present as attending physician in the emergency department during the care of this patient, but I was not directly involved in the decision making or delivery of care for this patient. (PHILIPPE DENT MD) FABIANA CARBAJAL APRN Jul 01, 2021 16:47 PHILIPPE DENT MD Jul 04, 2021 06:56
[2021-07-01 17:03] LABS: BASOPHILS % (AUTO) 0 % (0-10); EOSINOPHILS % (AUTO) 0 % (0-10); HEMATOCRIT 32 % (40-54); HEMOGLOBIN 10.3 g/dL (13.3-17.7); LYMPHOCYTES % (AUTO) 12 % (12-44); MEAN CORPUSCULAR HEMOGLOBIN 35 pg (25-34); MEAN CORPUSCULAR HGB CONC 32 g/dL (32-36); MEAN CORPUSCULAR VOLUME 110 fL (80-99); MEAN PLATELET VOLUME 9.4 fL (9.0-12.2); MONOCYTES # (AUTO) 0.4 10^3/uL (0.0-1.0); MONOCYTES % (AUTO) 4 % (0-12); NEUTROPHILS # (AUTO) 6.8 10^3/uL (1.8-7.8); NEUTROPHILS % (AUTO) 83 % (42-75); PLATELET COUNT 501 10^3/uL (130-400); WHITE BLOOD COUNT 8.1 10^3/uL (4.3-11.0)
[2021-07-01 17:08] LABS: POTASSIUM 4.7 MMOL/L (3.6-5.0)
[2021-07-01 17:09] LABS: CALCIUM 10.8 MG/DL (8.5-10.1)
[2021-07-01 17:12] LABS: PROTHROMBIN TIME PATIENT 13.5 SEC (12.2-14.7)
[2021-07-01 17:14] LABS: CREATININE SERUM 1.28 MG/DL (0.60-1.30)
[2021-07-01] MEDS ORDERED: ceFAZolin INJECTION 1,000 MG ONE (17:21)
--- NOTE | 2021-07-01 17:41 | Progress Note-Post Operative ---
Post-Operative Progess Note Surgeon (s)/Division Supervisor (s) Surgeon BERNADINE NICHOLE MD Division Supervisor n/a Pre-Operative Diagnosis left posterior epistaxis Post-Operative Diagnosis same Post-Op Procedure Note Date of Procedure: Jul 01, 2021 Name of Procedure Performed: Endoscopic Repair of Left Posterior Epistaxis Description & Findings Description and Findings: n/a Anesthesia Type get Estimated Blood Loss minimal Packing none. Specimen(s) collected/removed none BERNADINE NICHOLE MD Jul 01, 2021 17:41
[2021-07-01] MEDS ORDERED: PHENYLEPHRINE 0.5% NASAL SPR (NEO-SYNEPHRINE) REG PRN (17:45)
[2021-07-01] MEDS ORDERED: fentaNYL INJ 100 MCG/2 ML AMP IV ONE (18:10)
[2021-07-01] MEDS: D5 1/2 NS W/KCL 20 MEQ/L 1,000 ML IV SCH (18:56)
[2021-07-01] MEDS: HYDROcodone/APAP 5 MG/325 MG (LORTAB) TAB PO PRN (20:30)
[2021-07-02] MEDS: HYDROcodone/APAP 5 MG/325 MG (LORTAB) TAB PO PRN (03:54)
[2021-07-02 04:25] VITALS: BP 136/67
[2021-07-02 08:00] VITALS: BP 157/77
[2021-07-02] MEDS: D5 1/2 NS W/KCL 20 MEQ/L 1,000 ML IV SCH (09:29)
[2021-07-02 12:00] VITALS: BP 150/75
[2021-07-02 14:52] VITALS: BP 150/75
--- NOTE | 2021-07-03 11:03 | Anesthesia-General Post-Op ---
General Significant Intra-Op Events Notes late entry 07/01 2000 Patient Condition Mental Status/LOC: Same as Preop Cardiovascular: Satisfactory Nausea/Vomiting: Absent Respiratory: Satisfactory Pain: Controlled Complications: Absent Post Op Complications Complications None Follow Up Care/Instructions Patient Instructions None needed. Anesthesia/Patient Condition Patient Condition Patient is doing well, no complaints, stable vital signs, no apparent adverse anesthesia problems. No complications reported per nursing. MALACHI JERNIGAN CRNA Jul 03, 2021 11:03
== END 2021-07-02 14:56 | disposition home or self-care (01) ==
LOC: EDUNIT# 16:44 → ER 16:45 → SDC 17:03 → 4TH 18:15 → SDC 07-02 14:56
PROVIDERS: ATTEND Otolaryngology Otolaryngology/Facial Plastic Surgery
DX: R04.0 Epistaxis (principal); K21.9 Gastro-esophageal reflux disease without esophagitis; J44.9 Chronic obstructive pulmonary disease, unspecified; G62.9 Polyneuropathy, unspecified; D53.9 Nutritional anemia, unspecified; Z79.891 Long term (current) use of opiate analgesic; Z79.899 Other long term (current) drug therapy; Z79.82 Long term (current) use of aspirin; Z99.81 Dependence on supplemental oxygen; Z87.891 Personal history of nicotine dependence; Z85.79 Personal history of other malignant neoplasms of lymphoid, hematopoietic and related tissues
CPT/HCPCS: 36415; 80048; 85025; 85610; 85730

== ENCOUNTER → 2021-08-26 | Outpatient (CLI) | payer MEDICARE, OTHER ==
--- NOTE | 2021-08-26 16:34 | Diagnostic Imaging Report ---
EXAMINATION: CT chest without contrast. TECHNIQUE: Multiple contiguous axial images were obtained through the chest without the use of intravenous contrast. All CT scans use one or more of the following dose optimizing techniques: automated exposure control, MA and/or KvP adjustment based on patient size and exam type or iterative reconstruction. HISTORY: Difficulty breathing. COPD. COMPARISON: 11/02/2020. FINDINGS: The heart size is within normal limits. No pericardial effusion is present. There is calcified aortic and coronary atherosclerotic plaque without aneurysm. There is no mediastinal, hilar or axillary lymphadenopathy. Centrilobular emphysema is seen throughout the lungs. Scattered patchy opacities are seen in the right middle lobe and bilateral lung bases. No evidence of pulmonary mass. No central endobronchial obstructing lesion. There is no pleural effusion or pneumothorax. The osseous structures demonstrate no acute abnormalities. Limited views of the upper abdominal structures demonstrate no acute abnormalities. PEG tube is noted. Both adrenal glands are unremarkable. IMPRESSION: Scattered patchy opacities in the right middle lobe and bilateral lung bases, new since the prior exam. Findings likely represent inflammatory/infectious process superimposed on COPD findings. A component of mucous plugging and aspiration may also be present. Dictated by: Dictated on workstation # [id number]
== END ==
LOC: RAD 15:15
PROVIDERS: ATTEND Internal Medicine Critical Care Medicine
DX: J44.9 Chronic obstructive pulmonary disease, unspecified (principal); J98.8 Other specified respiratory disorders; Z93.1 Gastrostomy status
CPT/HCPCS: 71250

== ENCOUNTER → 2022-01-09 | Outpatient (CLI) | payer OTHER ==
--- NOTE | 2022-01-09 16:42 | Diagnostic Imaging Report ---
INDICATION: Multiple myeloma COMPARISON with a bone scan dated December 07, 2020 TECHNIQUE: 23.9 mCi intravenous dose technetium 99 MDP. After 3 hours, whole-body planar imaging was performed. FINDINGS: There is focal elevated uptake fairly intense at the anterolateral aspect of either the left 8th or 9th ribs. Given its focality, and its isolation as a new finding, this is likely posttraumatic. Elsewhere, there is a chronic degenerative pattern of uptake about the axial and appendicular skeleton with knee arthritis greater right and bilateral shoulder arthritis as well as multilevel cervical thoracic and lumbar spondylosis and facet arthrosis. No suspicious calvarial or sternal uptake. Soft tissue uptake and excretion by urinary tracts, stable. IMPRESSION: 1. There is a chronic degenerative pattern of uptake, unchanged. 2. New focal left rib uptake is the only new or acute finding and is likely posttraumatic. Dictated by: Dictated on workstation # [id number]
== END ==
LOC: CARD 12:00
PROVIDERS: ATTEND Hospitalist
DX: C90.00 Multiple myeloma not having achieved remission (principal)
CPT/HCPCS: 78306

== ENCOUNTER → 2023-04-26 | Outpatient (CLI) | payer OTHER ==
[~2023-04-26] MED LIST changes: +ALBU8.5H6 IH; -RT-ALBUINH IH
--- NOTE | 2023-04-26 15:00 | Diagnostic Imaging Report ---
Modified barium swallow. Indication : Difficulty swallowing There are no prior exams available for comparison. This study was performed in the presence of the speech pathologistNila. The patient was given barium in different substances to swallow. This included honey, nectar, thin liquid, thin liquid by cup and applesauce. The patient did exhibit penetration with the thin liquid and thin liquid by cup. There is no aspiration noted otherwise. The patient was able to swallow the other materials without difficulty. There is no other evidence for aspiration or penetration. Impression: The swallowing mechanism is compromised as there was penetration with the thin liquid. Dictated by: Dictated on workstation # [id number]
== END ==
LOC: RAD 09:40
PROVIDERS: ATTEND Family Medicine
DX: R13.10 Dysphagia, unspecified (principal)
CPT/HCPCS: 74230